=== PATIENT | female | born 1990 | race Caucasian/White ===

== ENCOUNTER 2016-10-16 02:27 | Inpatient (IN) | payer OTHER ==
[2016-10-16 03:17] LABS: AMNISURE (ROM) POSITIVE (NEGATIVE)
[2016-10-16 03:18] LABS: AMORPHOUS SEDIMENT,URINE TRACE /HPF; APPEARANCE,URINE CLOUDY; BILIRUBIN,URINE NEGATIVE (NEGATIVE); GLUCOSE, URINE NEGATIVE (NEGATIVE); KETONES,URINE NEGATIVE (NEGATIVE); LEUKOCYTE ESTERASE,URINE MODERATE (NEGATIVE); NITRITE,URINE NEGATIVE (NEGATIVE); PROTEIN,URINE 100 mg/dL (NEGATIVE); URINE SPECIFIC GRAVITY 1.009; UROBILINOGEN,URINE NEGATIVE mg/dL (<2.0)
[2016-10-16] MEDS ORDERED: MAGNESIUM SULFATE 4 GM/100 ML RTUPB IV ONE (03:22)
[2016-10-16] MEDS ORDERED: BETAMET ACET/BETAMET NA INJ 6 MG/1 ML ONE (03:22)
[2016-10-16] MEDS ORDERED: RINGERS SOLUTION,LACTATED 1,000 ML IV ONE (03:23)
[2016-10-16] MEDS ORDERED: MAGNESIUM SULFATE 100 ML IV ONE (03:25)
[2016-10-16 03:26] LABS: URINE BARBITURATES SCREEN NEGATIVE; URINE METHADONE SCREEN NEGATIVE; URINE OPIATES LOW NEGATIVE; URINE PHENCYCLIDINE SCREEN NEGATIVE
[2016-10-16] MEDS ORDERED: PENICILLIN G POTASSIUM 5,000,000 UNIT in DEXTROSE 5%-WATER 100 ML IV ONE (03:30)
[2016-10-16] MEDS ORDERED: AZITHROMYCIN INJ 500 MG VIAL IV SCH (04:00)
[2016-10-16] MEDS ORDERED: AZITHROMYCIN INJ 500 MG VIAL IV PRN (04:10)
[2016-10-16 04:16] LABS: ABSOLUTE EOSINOPHILS # (AUTO) 0.1 10^3/uL (0.0-0.6); ABSOLUTE LYMPHOCYTES (AUTO) 1.9 10^3/uL (0.5-4.7); ABSOLUTE MONOCYTES (AUTO) 0.7 10^3/uL (0.1-1.4); BASOPHILS % (AUTO) 0.1 % (0-2); HEMATOCRIT 34.4 % (36.0-47.0); HEMOGLOBIN 11.3 g/dL (12.0-15.5); HGB HCT DIFFERENCE -0.5; LYMPHOCYTES % (AUTO) 19.7 % (13-45); MEAN CORPUSCULAR HEMOGLOBIN 26.1 pg (27.0-33.4); MEAN CORPUSCULAR HGB CONC 32.8 g/dL (32.0-36.0); MEAN CORPUSCULAR VOLUME 80 fl (80-97); MONOCYTES % (AUTO) 6.9 % (3-13); RED BLOOD COUNT 4.32 10^6/uL (3.72-5.28); RED CELL DISTRIBUTION WIDTH 14.3 % (11.5-14.0); SEGMENTED NEUTROPHILS % (AUTO) 72.3 % (42-78); WHITE BLOOD COUNT 9.7 10^3/uL (4.0-10.5)
[2016-10-16 04:18] LABS: ALANINE AMINOTRANSFERASE 25 U/L (9-52); ALBUMIN 3.3 g/dL (3.5-5.0); ALKALINE PHOSPHATASE 109 U/L (38-126); ANION GAP 10 (5-19); ASPARTATE AMINO TRANSFERASE 21 U/L (14-36); BILIRUBIN,TOTAL 0.3 mg/dL (0.2-1.3); BLOOD UREA NITROGEN 9 mg/dL (7-20); CALCIUM 9.3 mg/dL (8.4-10.2); CARBON DIOXIDE 20 mmol/L (22-30); CHLORIDE 109 mmol/L (98-107); CREATININE RESULT 0.54 mg/dL (0.52-1.25); GLUCOSE 94 mg/dL (75-110); LDH 337 U/L (313-618); POTASSIUM 3.8 mmol/L (3.6-5.0); SODIUM 138.6 mmol/L (137-145); URIC ACID 4.7 mg/dL (2.5-6.2)
[2016-10-16] MEDS: BETAMET ACET/BETAMET NA INJ 6 MG/1 ML IM SCH (04:21)
[2016-10-16] MEDS: RINGERS SOLUTION,LACTATED 1,000 ML IV PRN ×3 (04:22→18:29)
[2016-10-16] MEDS ORDERED: PENICILLIN G-K 5 MILLION UNIT VIAL ONE ×5 (04:26→20:32)
[2016-10-16] MEDS ORDERED: AZITHROMYCIN INJ 500 MG VIAL IV ONE ×2 (04:26→18:22)
[2016-10-16] MEDS: MAGNESIUM SULFATE 500 ML IV PRN ×2 (04:46→16:32)
[2016-10-16] MEDS ORDERED: AZITHROMYCIN 500 MG in DEXTROSE 5%-WATER 250 ML IV SCH (05:00)
[2016-10-16] MEDS ORDERED: ONDANSETRON HCL INJ/PF 4 MG/2 ML SDV ONE (07:04)
[2016-10-16] MEDS ORDERED: ONDANSETRON HCL INJ/PF 4 MG/2 ML SDV IV PRN (07:04)
[2016-10-16] MEDS ORDERED: PENICILLIN G POTASSIUM 2,500,000 UNIT in DEXTROSE 5%-WATER 50 ML IV SCH (07:30)
--- NOTE | 2016-10-16 08:00 | L&D Flow Sheet ---
LD Flowsheet Datetime Report Generated by CPN: 10/16/2016 08:00 Datetime: 10/16/2016 07:55 Vital Signs NBP Sys/Eda/Mean (mmHg): 128 (QS system process) : 86 (QS system process) : 102 (QS system process) Pulse: 96 (QS system process) Datetime: 10/16/2016 07:40 Vital Signs NBP Sys/Eda/Mean (mmHg): 129 (QS system process) : 90 (QS system process) : 104 (QS system process) Pulse: 105 (QS system process) Datetime: 10/16/2016 07:25 Vital Signs NBP Sys/Eda/Mean (mmHg): 126 (QS system process) : 91 (QS system process) : 104 (QS system process) Pulse: 105 (QS system process) Datetime: 10/16/2016 07:11 Vital Signs NBP Sys/Eda/Mean (mmHg): 130 (QS system process) : 92 (QS system process) : 106 (QS system process) Pulse: 104 (QS system process) Datetime: 10/16/2016 07:04 Antiemetics/Antacids: Zofran IV (mg) @ 4 (Filemon Gema, RN) Datetime: 10/16/2016 07:00 Frequency (min): None (Filemon Gema, RN) Assessment A Monitor Mode: External US (Filemon Gema, RN) FHR Baseline Rate : 150 (Filemon Gema, RN) Variability: Moderate 6-25 bpm (Filemon Gema, RN) Accelerations: 15X15 (Filemon Gema, RN) Datetime: 10/16/2016 06:55 Vital Signs NBP Sys/Eda/Mean (mmHg): 130 (QS system process) : 92 (QS system process) : 105 (QS system process) Pulse: 100 (QS system process) Datetime: 10/16/2016 06:45 Uterine Activity Monitor Mode: External; Palpation (Filemon Gema, RN) Frequency (min): None (Filemon Gema, RN) Resting Tone (Palpate): Relaxed (Filemon Gema, RN) Assessment A Monitor Mode: External US (Filemon Gema, RN) FHR Baseline Rate : 140 (Filemon Gema, RN) Variability: Moderate 6-25 bpm (Filemon Gema, RN) Accelerations: 10X10 (Filemon Gema, RN) Datetime: 10/16/2016 06:40 Vital Signs NBP Sys/Eda/Mean (mmHg): 124 (QS system process) : 87 (QS system process) : 101 (QS system process) Pulse: 88 (QS system process) Datetime: 10/16/2016 06:30 Frequency (min): None (Filemon Ribeiro, RN) Assessment A Monitor Mode: External US (Filemon Ribeiro, RN) FHR Baseline Rate : 130 (Filemon Ribeiro, RN) Variability: Moderate 6-25 bpm (Filemon Ribeiro, RN) Accelerations: 15X15 (Filemon Ribeiro, RN) Datetime: 10/16/2016 06:25 Vital Signs NBP Sys/Eda/Mean (mmHg): 123 (QS system process) : 85 (QS system process) : 100 (QS system process) Pulse: 79 (QS system process) Datetime: 10/16/2016 06:15 Uterine Activity Monitor Mode: External (Filemon Gema, RN) Frequency (min): None (Filemon Gema, RN) Assessment A Monitor Mode: External US (Filemon Ribeiro, RN) FHR Baseline Rate : 130 (Filemon Vásquezford, RN) Variability: Moderate 6-25 bpm (Filemon Ribeiro, RN) Accelerations: 10X10 (Filemon Vásquezford, RN) Datetime: 10/16/2016 06:13 Patient Position/Activity: Left Lateral; Semi-Fowlers (Filemon Vásquezford, RN) Communication Communication: RN at Bedside (Filemon Ribeiro, RN) Datetime: 10/16/2016 06:10 Vital Signs NBP Sys/Eda/Mean (mmHg): 119 (QS system process) : 86 (QS system process) : 100 (QS system process) Pulse: 89 (QS system process) Antibiotics: Zithromax (Filemonkyrie Ribeiro, RN) Medication Comments: Zithromax 500 mg started (Filemon Gema, RN) Datetime: 10/16/2016 06:08 Communication Communication: Provider at Bedside (Lara Ledgerwood, RN) Datetime: 10/16/2016 06:00 Uterine Activity Monitor Mode: External (Filemon Gema, RN) Frequency (min): None (Filemon Gema, RN) Assessment A Monitor Mode: External US (Filemon Gema, RN) FHR Baseline Rate : 130 (Filemon Gema, RN) Variability: Moderate 6-25 bpm (Filemon Gema, RN) Accelerations: None (Filemon Gema, RN) Maternal Assessment Level of Consciousness: Fully Conscious (Filemon Gema, RN) DTR's/Clonus: DTRs 1+; No Clonus (Filemon Gema, RN) Headache: Denies (Filemon Gema, RN) Nausea/Vomiting: Denies (Filemon Gema, RN) RUQ Epigastric Pain: Denies (Filemon Gema, RN) Datetime: 10/16/2016 05:55 Vital Signs NBP Sys/Eda/Mean (mmHg): 125 (QS system process) : 86 (QS system process) : 101 (QS system process) Pulse: 81 (QS system process) Datetime: 10/16/2016 05:45 Frequency (min): None (Filemon Ribeiro, RN) Assessment A Monitor Mode: External US (Filemon Ribeiro, RN) FHR Baseline Rate : 130 (Filemon Ribeiro, RN) Variability: Moderate 6-25 bpm (Filemon Ribeiro, RN) Accelerations: 10X10 (Filemon Ribeiro, RN) Datetime: 10/16/2016 05:40 Vital Signs NBP Sys/Eda/Mean (mmHg): 132 (QS system process) : 92 (QS system process) : 107 (QS system process) Pulse: 85 (QS system process) Datetime: 10/16/2016 05:35 Vital Signs NBP Sys/Eda/Mean (mmHg): 127 (QS system process) : 95 (QS system process) : 107 (QS system process) Pulse: 85 (QS system process) Datetime: 10/16/2016 05:31 Vital Signs NBP Sys/Eda/Mean (mmHg): 143 (QS system process) : 91 (QS system process) : 113 (QS system process) Pulse: 86 (QS system process) Datetime: 10/16/2016 05:30 Uterine Activity Monitor Mode: External; Palpation (Filemon Gema, RN) Monitor Interventions for UA: [place] Adjusted (Filemon Gema, RN) Frequency (min): Unable to determine (Filemon Gema, RN) Resting Tone (Palpate): Relaxed (Filemon Gema, RN) Contraction Comments: Pt denies feeling any contractions (Filemon Gema, RN) Assessment A Monitor Mode: External US (Filemon Gema, RN) FHR Baseline Rate : 135 (Filemon Gema, RN) Variability: Moderate 6-25 bpm (Filemon Gema, RN) Accelerations: 15X15 (Filemon Gema, RN) Datetime: 10/16/2016 05:25 Vital Signs NBP Sys/Eda/Mean (mmHg): 138 (QS system process) : 89 (QS system process) : 109 (QS system process) Pulse: 90 (QS system process) Datetime: 10/16/2016 05:20 Vital Signs NBP Sys/Eda/Mean (mmHg): 135 (QS system process) : 89 (QS system process) : 107 (QS system process) Pulse: 93 (QS system process) Datetime: 10/16/2016 05:15 Vital Signs NBP Sys/Eda/Mean (mmHg): 128 (QS system process) : 89 (QS system process) : 105 (QS system process) Pulse: 93 (QS system process) Uterine Activity Monitor Mode: External (Crystal Kay, RN) Monitor Interventions for UA: [place] Adjusted (Crystal Kay, RN) Frequency (min): x1 (Crystal Washington, RN) Duration (sec): 100 (Crystal [place], RN) Resting Tone (Palpate): Relaxed (Crystal Kay, RN) Assessment A Monitor Mode: External US (Crystal [place], RN) FHR Baseline Rate : 130 (Crystal Kay, RN) Variability: Moderate 6-25 bpm (Crystal Kay, RN) Accelerations: 15X15 (Crystal Kay, RN) Patient Position/Activity: Right Tilt; Semi-Fowlers (Crystal Washington, RN) Datetime: 10/16/2016 05:10 Vital Signs NBP Sys/Eda/Mean (mmHg): 137 (QS system process) : 92 (QS system process) : 109 (QS system process) Pulse: 92 (QS system process) Datetime: 10/16/2016 05:05 Vital Signs NBP Sys/Eda/Mean (mmHg): 132 (QS system process) : 87 (QS system process) : 105 (QS system process) Pulse: 90 (QS system process) Datetime: 10/16/2016 05:00 Vital Signs NBP Sys/Eda/Mean (mmHg): 128 (QS system process) : 87 (QS system process) : 102 (QS system process) Pulse: 90 (QS system process) Monitor Interventions for UA: [place] Adjusted (Crystal Kay, RN) Assessment A Monitor Mode: External US (Crystal Kay, RN) FHR Baseline Rate : 135 (Crystal Washington, RN) Variability: Moderate 6-25 bpm (Crystal Kay, RN) Pain Pain Scale: 0 (Filemon Gema, RN) Pain Presence: None/Denies (Filemon Gema, RN) Pain Type: N/A (Filemon Gema, RN) Maternal Assessment Level of Consciousness: Fully Conscious (Filemon Gema, RN) DTR's/Clonus: DTRs 1+; No Clonus (Filemon Gema, RN) Headache: Denies (Filemon Gema, RN) Breath Sounds, Left: Clear and Equal (Filemon Gema, RN) Breath Sounds, Right: Clear and Equal (Filemon Gema, RN) Nausea/Vomiting: Denies (Filemon Gema, RN) RUQ Epigastric Pain: Denies (Filemon Gema, RN) Datetime: 10/16/2016 04:55 Vital Signs NBP Sys/Eda/Mean (mmHg): 131 (QS system process) : 89 (QS system process) : 104 (QS system process) Pulse: 93 (QS system process) Datetime: 10/16/2016 04:50 Vital Signs NBP Sys/Eda/Mean (mmHg): 132 (QS system process) : 89 (QS system process) : 106 (QS system process) Pulse: 89 (QS system process) Datetime: 10/16/2016 04:47 Antibiotics: Penicillin IV (Units) @ 5 Million (Filemon Gema, RN) Datetime: 10/16/2016 04:45 Vital Signs NBP Sys/Eda/Mean (mmHg): 131 (QS system process) : 89 (QS system process) : 105 (QS system process) Pulse: 93 (QS system process) Monitor Interventions for UA: [place] Adjusted (Crystal Kay, RN) Assessment A Monitor Mode: External US (Crystal Kay, RN) FHR Baseline Rate : 135 (Crystal Kay, RN) Variability: Moderate 6-25 bpm (Crystal Kay, RN) Accelerations: 15X15 (Crystal Kay, RN) Patient Position/Activity: Right Tilt; Semi-Fowlers (Crystal Washington, RN) Datetime: 10/16/2016 04:41 I/O Interventions: [place] Cath Inserted (Mima Lattibeaudeir, RN) Datetime: 10/16/2016 04:35 Vital Signs NBP Sys/Eda/Mean (mmHg): 135 (QS system process) : 91 (QS system process) : 109 (QS system process) Pulse: 101 (QS system process) Datetime: 10/16/2016 04:30 Vital Signs NBP Sys/Eda/Mean (mmHg): 130 (QS system process) : 87 (QS system process) : 103 (QS system process) Pulse: 106 (QS system process) Monitor Interventions for UA: [place] Adjusted (Crystal Washington, RN) Frequency (min): x1 (Crystal Kay, RN) Assessment A Monitor Mode: External US (Crystal Washington, RN) FHR Baseline Rate : 135 (Crystal Washington, RN) Variability: Moderate 6-25 bpm (Crystal Kay, RN) Accelerations: 15X15 (Crystal Washington, RN) Medications Magnesium/Antihypertensives: Magnesium Sulfate IV (Gm/hr) @ 2 (Mima Lattibeaudeir, RN) Patient Position/Activity: Right Tilt; Semi-Fowlers (Crystal Washington, RN) Datetime: 10/16/2016 04:25 Vital Signs NBP Sys/Eda/Mean (mmHg): 135 (QS system process) : 93 (QS system process) : 111 (QS system process) Pulse: 101 (QS system process) Datetime: 10/16/2016 04:20 Vital Signs NBP Sys/Eda/Mean (mmHg): 131 (QS system process) : 96 (QS system process) : 109 (QS system process) Pulse: 103 (QS system process) Datetime: 10/16/2016 04:18 Steroids: Celestone 12mg IM - Dose 1 (Filemon Ribeiro, ZEENAT) Medication Comments: L. Hip Placement (Filemon Ribeiro, RN) Datetime: 10/16/2016 04:16 Vital Signs NBP Sys/Eda/Mean (mmHg): 137 (QS system process) : 94 (QS system process) : 112 (QS system process) Pulse: 92 (QS system process) Datetime: 10/16/2016 04:15 Monitor Interventions for UA: [place] Adjusted (Crystal Washington, RN) Assessment A Monitor Mode: External US (Crystal Washington, RN) Monitor Interventions for FHR: Ultrasound Adjusted (Crystal Kay, RN) FHR Baseline Rate : 135 (Crystal Kay, RN) Variability: Moderate 6-25 bpm (Crystal Kay, RN) Patient Position/Activity: Right Tilt; Semi-Fowlers (Crystal Kay, RN) Datetime: 10/16/2016 04:10 Medications Magnesium/Antihypertensives: Magnesium Sulfate IV Loading (Gm) @ 4 (Filemon Gema, RN) Patient Care IV/Blood Work: IV Started; IV Bolus Started (Filemon Gema, RN) Datetime: 10/16/2016 04:00 Uterine Activity Monitor Mode: External (Crystal Kay, RN) Frequency (min): x1 (Crystal Washington, RN) Quality: Mild/Moderate (Crystal Washington, RN) Duration (sec): 100 (Crystal Kay, RN) Duration Criteria: Less than Two 120 Second Contractions (Crystal Washington, RN) Resting Tone (Palpate): Relaxed (Crystal Washington, RN) Assessment A Monitor Mode: External US (Crystal Washington, RN) FHR Baseline Rate : 135 (Crystal Washington, RN) Variability: Moderate 6-25 bpm (Crystal Washington, RN) Accelerations: 15X15 (Crystal Washington, RN) Patient Position/Activity: Right Tilt; Semi-Fowlers (Crystal Kay, RN) Datetime: 10/16/2016 03:55 Patient Care Comments: Offset Label Rewinder at bedside to provide US (Filemon Gema, RN) Communication Communication: RN at Bedside (Filemonkyrie Ribeiro, RN) Datetime: 10/16/2016 03:45 Uterine Activity Monitor Mode: External (Crystal Kay, RN) Frequency (min): x2 (Crystal Kay, RN) Quality: Mild/Moderate (Crystal Washington, RN) Duration Criteria: Less than Two 120 Second Contractions (Crystal Kay, RN) Resting Tone (Palpate): Relaxed (Crystal Washington, RN) Assessment A Monitor Mode: External US (Crystal Kay, RN) FHR Baseline Rate : 130 (Crystal Kay, RN) Variability: Moderate 6-25 bpm (Crystal Washington, RN) Accelerations: 15X15 (Crystal Washington, RN) Patient Position/Activity: Right Tilt; Semi-Fowlers (Crystal Kay, RN) Datetime: 10/16/2016 03:30 Uterine Activity Monitor Mode: External (Crystal Kay, RN) Frequency (min): 11 (Crystal Kay, RN) Quality: Mild/Moderate (Crystal Washington, RN) Duration Criteria: Less than Two 120 Second Contractions (Crystal Washington, RN) Resting Tone (Palpate): Relaxed (Crystal Washington, RN) Assessment A Monitor Mode: External US (Crystal Kay, RN) FHR Baseline Rate : 130 (Crystal Washington, RN) Variability: Moderate 6-25 bpm (Crystal Kay, RN) Accelerations: 15X15 (Crystal Kay, RN) Patient Position/Activity: Right Tilt; Semi-Fowlers (Crystal Washington, RN) Datetime: 10/16/2016 03:24 Communication Communication: Provider at Bedside (Filemonkyrie Ribeiro, RN) Notification Reason: Membrane Status (Filemon Vásquezford, RN) Communication Comments: Provider at bedside to discuss patients status (Filemon Ribeiro, RN) Datetime: 10/16/2016 03:21 Vital Signs NBP Sys/Eda/Mean (mmHg): 158 (QS system process) : 102 (QS system process) : 121 (QS system process) Pulse: 86 (QS system process) Datetime: 10/16/2016 03:15 Frequency (min): 6 (Crystal Washington, RN) Resting Tone (Palpate): Relaxed (Crystal Washington, RN) Assessment A Monitor Mode: External US (Crystal Washington, RN) FHR Baseline Rate : 135 (Crystal Washington, RN) Variability: Moderate 6-25 bpm (Crystal Kay, RN) Patient Position/Activity: Right Tilt; Semi-Fowlers (Mary Kay, RN) Patient Position/Activity: Right Tilt; Semi-Fowlers (Filemon Ribeiro, RN) I/O Interventions: Clear Liquids Given (Filemon Ribeiro, RN) Datetime: 10/16/2016 03:00 Vital Signs NBP Sys/Eda/Mean (mmHg): 138 (QS system process) : 102 (QS system process) : 116 (QS system process) Pulse: 91 (QS system process) Pain Pain Scale: 2 (Filemon Ribeiro, ZEENAT) Pain Presence: Intermittent (Filemon Ribeiro, ZEENAT) Pain Type: Cramping; Contraction (Filemon Ribeiro, ZEENAT) Pain Location: Abdomen; Back (Filemon Ribeiro, ZEENAT) Pain Goal: 0 (Filemon Ribeiro, ZEENAT) Pain Coping: Talking Through Contractions (Filemon Ribeiro, RN) Vaginal Exam Vaginal Bleeding: Scant (Annotations: Noticed some pink after wiping after she suspected ROM ) (Filemon Ribeiro RN) Maternal Assessment Level of Consciousness: Fully Conscious (Filemon Ribeiro RN) Headache: Denies (Filemon Ribeiro RN) Nausea/Vomiting: Denies (Filemon Ribeiro RN)
[2016-10-16] MEDS: PENICILLIN G-K 5 MILLION UNIT VIAL IV SCH ×3 (08:14→20:58)
[2016-10-16] MEDS ORDERED: ACETAMINOPHEN 325 MG TABLET ONE ×2 (09:23→20:32)
--- NOTE | 2016-10-16 11:00 | L&D Progress Notes ---
PROGRESS NOTES Datetime Report Generated by CPN: 10/16/2016 10:59 PROGRESS NOTE Impression: Reassuring Heart Rate Plan: Continue Present Management Vital Signs : Reviewed; Within Normal Limits Comment: Dr. Brown managing patient, doing well, no uc's, avoid vaginal exams, + FM. Cat 1 strip MEMBRANES Pooling: Positive Membranes: Ruptured Amniotic Fluid Color: Clear FETUS A FHR - Baseline: 130 Variability: Moderate 6-25bpm Accelerations: 15X15 Decelerations: None : 32.2 Estimated Weight (gm): 2200 SIGNATURE SIGNATURE: [id number] Assignment: Sheldon Brown DO Signature: with User ID: [email or web address] Signature: with User ID: [email or web address] : with User ID: [email or web address] : with User ID: [email or web address]
--- NOTE | 2016-10-16 14:00 | L&D Flow Sheet ---
LD Flowsheet Datetime Report Generated by CPN: 10/16/2016 14:00 Datetime: 10/16/2016 13:55 NBP Sys/Eda/Mean (mmHg): 127 (QS system process) : 84 (QS system process) : 102 (QS system process) Pulse: 85 (QS system process) Datetime: 10/16/2016 13:40 NBP Sys/Eda/Mean (mmHg): 139 (QS system process) : 88 (QS system process) : 107 (QS system process) Pulse: 86 (QS system process) Datetime: 10/16/2016 13:26 NBP Sys/Eda/Mean (mmHg): 118 (QS system process) : 74 (QS system process) : 92 (QS system process) Pulse: 78 (QS system process) Datetime: 10/16/2016 13:10 NBP Sys/Eda/Mean (mmHg): 114 (QS system process) : 65 (QS system process) : 85 (QS system process) Pulse: 75 (QS system process) Datetime: 10/16/2016 12:55 NBP Sys/Eda/Mean (mmHg): 126 (QS system process) : 77 (QS system process) : 96 (QS system process) Pulse: 82 (QS system process) Datetime: 10/16/2016 12:45 Antibiotics: Penicillin IV (Units) @ (Annotations: 2.5 mill) (Zamzam Bellavance, RNC) Datetime: 10/16/2016 12:40 NBP Sys/Eda/Mean (mmHg): 134 (QS system process) : 84 (QS system process) : 104 (QS system process) Pulse: 93 (QS system process) Datetime: 10/16/2016 12:30 Monitor Mode: External (Zamzam Bellavance, RNC) Frequency (min): occassional (Zamzam Bellavance, RNC) Quality: Mild (Zamzam Bellavance, RNC) Duration (sec): 40 (Zamzam Bellavance, RNC) Duration Criteria: Less than Two 120 Second Contractions (Zamzam Bellavance, RNC) Pattern: Normal: <= 5 Contractions in 10 Minutes (Zamzam Bellavance, RNC) Resting Tone (Palpate): Relaxed (Zamzam Bellavance, RNC) Monitor Mode: External US (Zamzam Bellavance, RNC) Monitor Interventions for FHR: Ultrasound Adjusted (Zamzam Bellavance, RNC) FHR Baseline Rate : 120 (Zamzam Bellavance, RNC) FHR Baseline Changes: No Baseline Change (Zamzam Bellavance, RNC) Variability: Moderate 6-25 bpm (Zamzam Bellavance, RNC) Accelerations: 15X15 (Zamzam Bellavance, RNC) Decelerations: None (Zamzam Bellavance, RNC) Magnesium/Antihypertensives: Magnesium Sulfate IV (Gm/hr) @ (Zamzam Bellavance, RNC) IV/Blood Work: IV Infusing per Order (Zamzam Bellavance, RNC) Datetime: 10/16/2016 12:25 NBP Sys/Eda/Mean (mmHg): 129 (QS system process) : 78 (QS system process) : 98 (QS system process) Pulse: 87 (QS system process) Datetime: 10/16/2016 12:10 NBP Sys/Eda/Mean (mmHg): 119 (QS system process) : 71 (QS system process) : 88 (QS system process) Pulse: 88 (QS system process) Datetime: 10/16/2016 12:00 Respirations: 16 (Zamzam Bellavance, RNC) Monitor Mode: External (Zamzam Bellavance, RNC) Monitor Interventions for UA: [place] Adjusted (Zamzam Bellavance, RNC) Frequency (min): occassional (Zamzam Bellavance, RNC) Quality: Mild (Zamzam Bellavance, RNC) Duration (sec): 40 (Zamzam Bellavance, RNC) Duration Criteria: Less than Two 120 Second Contractions (Zamzam Bellavance, RNC) Pattern: Normal: <= 5 Contractions in 10 Minutes (Zamzam Bellavance, RNC) Resting Tone (Palpate): Relaxed (Zamzam Bellavance, RNC) Monitor Mode: External US (Zamzam Bellavance, RNC) Monitor Interventions for FHR: Ultrasound Adjusted (Zamzam Bellavance, RNC) FHR Baseline Rate : 120 (Zamzam Bellavance, RNC) FHR Baseline Changes: No Baseline Change (Zamzam Bellavance, RNC) Variability: Moderate 6-25 bpm (Zamzma Bellavance, RNC) Accelerations: 15X15 (Zamzam Bellavance, RNC) Decelerations: None (Zamzam Bellavance, RNC) Magnesium/Antihypertensives: Magnesium Sulfate IV (Gm/hr) @ (Annotations: ) (Zamzam Bellavance, RNC) IV/Blood Work: IV Infusing per Order (Zamzam Bellavance, RNC) Datetime: 10/16/2016 11:55 NBP Sys/Eda/Mean (mmHg): 128 (QS system process) : 74 (QS system process) : 94 (QS system process) Pulse: 90 (QS system process) Datetime: 10/16/2016 11:30 Monitor Mode: External (Zamzam Bellavance, RNC) Frequency (min): 9-12 (Zamzam Bellavance, RNC) Quality: Mild (Zamzam Bellavance, RNC) Duration (sec): 50 (Zamzam Bellavance, RNC) Duration Criteria: Less than Two 120 Second Contractions (Zamzam Bellavance, RNC) Pattern: Normal: <= 5 Contractions in 10 Minutes (Zamzam Bellavance, RNC) Resting Tone (Palpate): Relaxed (Zamzam Bellavance, RNC) Monitor Mode: External US (Zamzam Bellavance, RNC) Monitor Interventions for FHR: Ultrasound Adjusted (Zamzam Bellavance, RNC) FHR Baseline Rate : 120 (Zamzam Bellavance, RNC) FHR Baseline Changes: No Baseline Change (Zamzam Bellavance, RNC) Variability: Moderate 6-25 bpm (Zamzam Bellavance, RNC) Accelerations: 15X15 (Zamzam Bellavance, RNC) Decelerations: None (Zamzam Bellavance, RNC) Pain Scale: 1 (Zamzam Bellavance, RNC) Pain Presence: Constant (Zamzma Bellavance, RNC) Pain Type: Ache (Zamzam Bellavance, RNC) Pain Location: Head (Zamzam Bellavance, RNC) Pain Goal: 0 (Zamzam Bellavance, RNC) Pain Coping: Sleeping (Zamzam Bellavance, RNC) Datetime: 10/16/2016 11:25 NBP Sys/Eda/Mean (mmHg): 126 (QS system process) : 79 (QS system process) : 96 (QS system process) Pulse: 93 (QS system process) Datetime: 10/16/2016 11:10 NBP Sys/Eda/Mean (mmHg): 131 (QS system process) : 81 (QS system process) : 100 (QS system process) Pulse: 94 (QS system process) Datetime: 10/16/2016 11:00 Respirations: 16 (Zamzam Bellavance, RNC) Monitor Mode: External (Zamzam Bellavance, RNC) Frequency (min): 9-12 (Zamzam Bellavance, RNC) Quality: Mild (Zamzam Bellavance, RNC) Duration (sec): 50 (Zamzam Bellavance, RNC) Duration Criteria: Less than Two 120 Second Contractions (Zamzam Bellavance, RNC) Pattern: Normal: <= 5 Contractions in 10 Minutes (Zamzam Bellavance, RNC) Resting Tone (Palpate): Relaxed (Zamzam Bellavance, RNC) Monitor Mode: External US (Zamzam Bellavance, RNC) Monitor Interventions for FHR: Ultrasound Adjusted (Zamzam Bellavance, RNC) FHR Baseline Rate : 120 (Zamzam Bellavance, RNC) FHR Baseline Changes: No Baseline Change (Zamzam Bellavance, RNC) Variability: Moderate 6-25 bpm (Zamzam Bellavance, RNC) Accelerations: 15X15 (Zamzam Bellavance, RNC) Decelerations: None (Zamzam Bellavance, RNC) Pain Scale: 4 (Zamzam Bellavance, RNC) Pain Presence: Constant (Zamzam Bellavance, RNC) Pain Type: Ache (Zamzam Bellavance, RNC) Pain Location: Head (Zamzam Bellavance, RNC) Pain Goal: 0 (Zamzam Bellavance, RNC) Pain Relief Measures: Pain Medication Given (Annotations: tylenol 925 given po) (Zamzam Bellavance, RNC) Pain Coping: Sleeping (Zamzam Bellavance, RNC) Datetime: 10/16/2016 10:55 NBP Sys/Eda/Mean (mmHg): 126 (QS system process) : 86 (QS system process) : 102 (QS system process) Pulse: 86 (QS system process) Datetime: 10/16/2016 10:40 NBP Sys/Eda/Mean (mmHg): 118 (QS system process) : 80 (QS system process) : 95 (QS system process) Pulse: 103 (QS system process) Datetime: 10/16/2016 10:30 Respirations: 16 (Zamzam Bellavance, RNC) Monitor Mode: External (Zamzam Bellavance, RNC) Monitor Interventions for UA: [place] Adjusted (Zamzam Bellavance, RNC) Frequency (min): occassional (Zamzam Bellavance, RNC) Resting Tone (Palpate): Relaxed (Zamzam Bellavance, RNC) Monitor Mode: External US (Zamzam Bellavance, RNC) Monitor Interventions for FHR: Ultrasound Adjusted (Zamzam Bellavance, RNC) FHR Baseline Rate : 120 (Zamzam Bellavance, RNC) Variability: Moderate 6-25 bpm (Zamzam Bellavance, RNC) Accelerations: 15X15 (Zamzam Bellavance, RNC) Decelerations: None (Zamzam Bellavance, RNC) Pain Scale: 0 (Zamzam Bellavance, RNC) Level of Consciousness: Fully Conscious (Zamzam Bellavance, RNC) DTR's/Clonus: DTRs 2+ (Zamzam Bellavance, RNC) Headache: Denies (Zamzam Bellavance, RNC) Breath Sounds, Left: Clear and Equal (Zamzam Bellavance, RNC) Breath Sounds, Right: Clear and Equal (Zamzam Bellavance, RNC) Nausea/Vomiting: Denies (Zamzam Bellavance, RNC) RUQ Epigastric Pain: Denies (Zamzam Bellavance, RNC) Magnesium/Antihypertensives: Magnesium Sulfate IV (Gm/hr) @ (Zamzam Bellavance, RNC) IV/Blood Work: IV Infusing per Order (Zamzam Bellavance, RNC) Datetime: 10/16/2016 10:25 NBP Sys/Eda/Mean (mmHg): 126 (QS system process) : 82 (QS system process) : 98 (QS system process) Pulse: 98 (QS system process) Datetime: 10/16/2016 10:10 NBP Sys/Eda/Mean (mmHg): 119 (QS system process) : 70 (QS system process) : 89 (QS system process) Pulse: 78 (QS system process) Datetime: 10/16/2016 10:00 Monitor Mode: External (Zamzam Bellavance, RNC) Monitor Interventions for UA: [place] Adjusted (Zamzam Bellavance, RNC) Frequency (min): occassional (Zamzam Bellavance, RNC) Resting Tone (Palpate): Relaxed (Zamzam Bellavance, RNC) Monitor Mode: External US (Zamzam Bellavance, RNC) Monitor Interventions for FHR: Ultrasound Adjusted (Zamzam Bellavance, RNC) FHR Baseline Rate : 120 (Zamzam Bellavance, RNC) Variability: Moderate 6-25 bpm (Zamzam Bellavance, RNC) Accelerations: 15X15 (Zamzam Bellavance, RNC) Decelerations: None (Zamzam Bellavance, RNC) Pain Scale: 0 (Zamzam Bellavance, RNC) Level of Consciousness: Fully Conscious (Zamzam Bellavance, RNC) DTR's/Clonus: DTRs 2+ (Zamzam Bellavance, RNC) Headache: Denies (Zamzam Bellavance, RNC) Breath Sounds, Left: Clear and Equal (Zamzam Bellavance, RNC) Breath Sounds, Right: Clear and Equal (Zamzam Bellavance, RNC) Nausea/Vomiting: Denies (Zamzam Bellavance, RNC) RUQ Epigastric Pain: Denies (Zamzam Bellavance, RNC) Magnesium/Antihypertensives: Magnesium Sulfate IV (Gm/hr) @ (Zamzam Bellavance, RNC) IV/Blood Work: IV Infusing per Order (Zamzam Bellavance, RNC) Datetime: 10/16/2016 09:55 NBP Sys/Eda/Mean (mmHg): 127 (QS system process) : 80 (QS system process) : 97 (QS system process) Pulse: 90 (QS system process) Datetime: 10/16/2016 09:40 NBP Sys/Eda/Mean (mmHg): 129 (QS system process) : 87 (QS system process) : 103 (QS system process) Pulse: 96 (QS system process) Datetime: 10/16/2016 09:30 Monitor Mode: External (Zamzam Bellavance, RNC) Monitor Interventions for UA: [place] Adjusted (Zamzam Bellavance, RNC) Frequency (min): occassional (Zamzam Bellavance, RNC) Resting Tone (Palpate): Relaxed (Zamzam Bellavance, RNC) Monitor Mode: External US (Zamzam Bellavance, RNC) Monitor Interventions for FHR: Ultrasound Adjusted (Zamzam Bellavance, RNC) FHR Baseline Rate : 120 (Zamzam Bellavance, RNC) Variability: Moderate 6-25 bpm (Zamzam Bellavance, RNC) Accelerations: 15X15 (Zamzam Bellavance, RNC) Decelerations: None (Zamzam Bellavance, RNC) Pain Scale: 0 (Zamzam Bellavance, RNC) Level of Consciousness: Fully Conscious (Zamzam Bellavance, RNC) DTR's/Clonus: DTRs 2+ (Zamzam Bellavance, RNC) Headache: Denies (Zamzam Bellavance, RNC) Breath Sounds, Left: Clear and Equal (Zamzam Bellavance, RNC) Breath Sounds, Right: Clear and Equal (Zamzam Bellavance, RNC) Nausea/Vomiting: Denies (Zamzam Bellavance, RNC) RUQ Epigastric Pain: Denies (Zamzam Bellavance, RNC) Magnesium/Antihypertensives: Magnesium Sulfate IV (Gm/hr) @ (Zamzam Bellavance, RNC) IV/Blood Work: IV Infusing per Order (Zamzam Bellavance, RNC) Datetime: 10/16/2016 09:25 NBP Sys/Eda/Mean (mmHg): 130 (QS system process) : 82 (QS system process) : 99 (QS system process) Pulse: 94 (QS system process) Datetime: 10/16/2016 09:10 NBP Sys/Eda/Mean (mmHg): 129 (QS system process) : 82 (QS system process) : 99 (QS system process) Pulse: 97 (QS system process) Datetime: 10/16/2016 09:00 Respirations: 16 (Zamzam Bellavance, RNC) Monitor Mode: External (Zamzam Bellavance, RNC) Monitor Interventions for UA: [place] Adjusted (Zamzam Bellavance, RNC) Frequency (min): occassional (Zamzam Bellavance, RNC) Resting Tone (Palpate): Relaxed (Zamzam Bellavance, RNC) Monitor Mode: External US (Zamzam Bellavance, RNC) Monitor Interventions for FHR: Ultrasound Adjusted (Zamzam Bellavance, RNC) FHR Baseline Rate : 120 (Zamzam Bellavance, RNC) Variability: Moderate 6-25 bpm (Zamzam Bellavance, RNC) Accelerations: 15X15 (Zamzam Bellavance, RNC) Decelerations: None (Zamzam Bellavance, RNC) Pain Scale: 0 (Zamzam Bellavance, RNC) Level of Consciousness: Fully Conscious (Zamzam Bellavance, RNC) DTR's/Clonus: DTRs 2+ (Zamzam Bellavance, RNC) Headache: Denies (Zamzam Bellavance, RNC) Breath Sounds, Left: Clear and Equal (Zamzam Bellavance, RNC) Breath Sounds, Right: Clear and Equal (Zamzam Bellavance, RNC) Nausea/Vomiting: Denies (Zamzam Bellavance, RNC) RUQ Epigastric Pain: Denies (Zamzam Bellavance, RNC) Magnesium/Antihypertensives: Magnesium Sulfate IV (Gm/hr) @ (Zamzam Bellavance, RNC) Antibiotics: Penicillin IV (Units) @ (Annotations: 2.5 mill) (Zamzam Bellavance, RNC) IV/Blood Work: IV Infusing per Order (Zamzam Bellavance, RNC) Datetime: 10/16/2016 08:55 NBP Sys/Eda/Mean (mmHg): 129 (QS system process) : 88 (QS system process) : 102 (QS system process) Pulse: 99 (QS system process) Datetime: 10/16/2016 08:40 NBP Sys/Eda/Mean (mmHg): 125 (QS system process) : 86 (QS system process) : 101 (QS system process) Pulse: 100 (QS system process) Datetime: 10/16/2016 08:30 Respirations: 16 (Zamzam Bellavance, RNC) Monitor Mode: External (Zamzam Bellavance, RNC) Monitor Interventions for UA: [place] Adjusted (Zamzam Bellavance, RNC) Frequency (min): occassional (Zamzam Bellavance, RNC) Resting Tone (Palpate): Relaxed (Zamzam Bellavance, RNC) Monitor Mode: External US (Zamzam Bellavance, RNC) Monitor Interventions for FHR: Ultrasound Adjusted (Zamzam Bellavance, RNC) FHR Baseline Rate : 120 (Zamzam Bellavance, RNC) Variability: Moderate 6-25 bpm (Zamzam Bellavance, RNC) Accelerations: 15X15 (Zamzam Bellavance, RNC) Decelerations: None (Zamzam Bellavance, RNC) Pain Scale: 0 (Zamzam Bellavance, RNC) Level of Consciousness: Fully Conscious (Zamzam Bellavance, RNC) DTR's/Clonus: DTRs 2+ (Zamzam Bellavance, RNC) Headache: Denies (Zamzam Bellavance, RNC) Breath Sounds, Left: Clear and Equal (Zamzam Bellavance, RNC) Breath Sounds, Right: Clear and Equal (Zamzam Bellavance, RNC) Nausea/Vomiting: Denies (Zamzam Bellavance, RNC) RUQ Epigastric Pain: Denies (Zamzam Bellavance, RNC) Magnesium/Antihypertensives: Magnesium Sulfate IV (Gm/hr) @ (Zamzam Bellavance, RNC) IV/Blood Work: IV Infusing per Order (Zamzam Bellavance, RNC) Datetime: 10/16/2016 08:25 NBP Sys/Eda/Mean (mmHg): 131 (QS system process) : 90 (QS system process) : 106 (QS system process) Pulse: 100 (QS system process) Datetime: 10/16/2016 08:10 NBP Sys/Eda/Mean (mmHg): 132 (QS system process) : 92 (QS system process) : 108 (QS system process) Pulse: 99 (QS system process) Datetime: 10/16/2016 08:00 Monitor Mode: External (Zamzam Bellavance, RNC) Monitor Interventions for UA: [place] Adjusted (Zamzam Bellavance, RNC) Frequency (min): occassional (Zamzam Bellavance, RNC) Resting Tone (Palpate): Relaxed (Zamzam Bellavance, RNC) Monitor Mode: External US (Zamzam Bellavance, RNC) Monitor Interventions for FHR: Ultrasound Adjusted (Zamzam Bellavance, RNC) FHR Baseline Rate : 120 (Zamzam Bellavance, RNC) Variability: Moderate 6-25 bpm (Zamzam Bellavance, RNC) Accelerations: 15X15 (Zamzam Bellavance, RNC) Decelerations: None (Zamzam Bellavance, RNC) Pain Scale: 0 (Zamzam Bellavance, RNC) Level of Consciousness: Fully Conscious (Zamzam Bellavance, RNC) DTR's/Clonus: DTRs 2+ (Zamzam Bellavance, RNC) Headache: Denies (Zamzam Bellavance, RNC) Breath Sounds, Left: Clear and Equal (Zamzam Bellavance, RNC) Breath Sounds, Right: Clear and Equal (Zamzam Bellavance, RNC) Nausea/Vomiting: Denies (Zamzam Bellavance, RNC) RUQ Epigastric Pain: Denies (Zamzam Bellavance, RNC) Magnesium/Antihypertensives: Magnesium Sulfate IV (Gm/hr) @ (Zamzam Ortiz, RNC) IV/Blood Work: IV Infusing per Order (Zamzam Ortiz, RNC)
[2016-10-16] MEDS ORDERED: NALBUPHINE HCL INJ 10 MG/1 ML AMPULE ONE (16:21)
--- NOTE | 2016-10-16 20:01 | L&D Flow Sheet ---
LD Flowsheet Datetime Report Generated by CPN: 10/16/2016 20:00 Datetime: 10/16/2016 19:55 NBP Sys/Eda/Mean (mmHg): 123 (QS system process) : 68 (QS system process) : 90 (QS system process) Pulse: 81 (QS system process) Datetime: 10/16/2016 19:40 NBP Sys/Eda/Mean (mmHg): 132 (QS system process) : 84 (QS system process) : 102 (QS system process) Pulse: 91 (QS system process) Datetime: 10/16/2016 19:30 Communication: Provider at Bedside (Lara Gilbert RN) Communication Comments: Dr Brown at the bedside, answering pt's questions. Order for Ambien 10 mg and Tylenol 650 mg q 4 PRN for headache received. (Lara Gilbert RN) Datetime: 10/16/2016 19:25 NBP Sys/Eda/Mean (mmHg): 133 (QS system process) : 87 (QS system process) : 105 (QS system process) Pulse: 85 (QS system process) Pain Scale: 3 (Lara Gilbert RN) Pain Presence: Constant (Lara Gilbert RN) Pain Type: Sharp (Lara Gilbert RN) Pain Location: Head (Lara Gilbert RN) Level of Consciousness: Fully Conscious (Lara Gilbert RN) DTR's/Clonus: DTRs 2+; No Clonus (Lara Gilbert RN) Breath Sounds, Left: Clear and Equal (Lara Gilbert RN) Breath Sounds, Right: Clear and Equal (Lara Gilbert RN) Nausea/Vomiting: Denies (Lara Gilbert RN) RUQ Epigastric Pain: Denies (Lara Gilbert RN) Magnesium/Antihypertensives: Magnesium Sulfate IV (Gm/hr) @ (Annotations: 2 g/h) (Lara Gilbert RN) Instructional Method: Demo; Verbal; Patient Instructed (Lara Gilbert RN) Plan of Care: Plan of Care Discussed (Lara Gilbert RN) Datetime: 10/16/2016 19:11 NBP Sys/Eda/Mean (mmHg): 132 (QS system process) : 84 (QS system process) : 103 (QS system process) Pulse: 88 (QS system process) Datetime: 10/16/2016 19:00 Respirations: 16 (Zamzam Bellavance, RNC) Monitor Mode: External (Zamzam Bellavance, RNC) Frequency (min): occassional (Azmzam Bellavance, RNC) Quality: Mild (Zamzam Bellavance, RNC) Duration (sec): 40 (Zamzam Bellavance, RNC) Duration Criteria: Less than Two 120 Second Contractions (Zamzam Bellavance, RNC) Pattern: Normal: <= 5 Contractions in 10 Minutes (Zamzam Bellavance, RNC) Resting Tone (Palpate): Relaxed (Zamzam Bellavance, RNC) Monitor Mode: External US (Zamzam Bellavance, RNC) Monitor Interventions for FHR: Ultrasound Adjusted (Zamzam Bellavance, RNC) FHR Baseline Rate : 120 (Zamzam Bellavance, RNC) FHR Baseline Changes: No Baseline Change (Zamzam Bellavance, RNC) Variability: Moderate 6-25 bpm (Zamzam Bellavance, RNC) Accelerations: 15X15 (Zamzam Bellavance, RNC) Decelerations: None (Zamzam Bellavance, RNC) Level of Consciousness: Fully Conscious (Zamzam Bellavance, RNC) DTR's/Clonus: DTRs 2+ (Zamzam Bellavance, RNC) Headache: Denies (Zamzam Bellavance, RNC) Breath Sounds, Left: Clear and Equal (Zamzam Bellavance, RNC) Nausea/Vomiting: Denies (Zamzam Bellavance, RNC) RUQ Epigastric Pain: Denies (Zamzam Bellavance, RNC) Magnesium/Antihypertensives: Magnesium Sulfate IV (Gm/hr) @ (Zamzam Bellavance, RNC) IV/Blood Work: IV Infusing per Order (Zamzam Bellavance, RNC) Datetime: 10/16/2016 18:55 NBP Sys/Eda/Mean (mmHg): 120 (QS system process) : 71 (QS system process) : 91 (QS system process) Pulse: 81 (QS system process) Datetime: 10/16/2016 18:40 NBP Sys/Eda/Mean (mmHg): 130 (QS system process) : 78 (QS system process) : 98 (QS system process) Pulse: 86 (QS system process) Datetime: 10/16/2016 18:30 Respirations: 16 (Zamzam Bellavance, RNC) Monitor Mode: External (Zamzam Bellavance, RNC) Frequency (min): occassional (Zamzam Bellavance, RNC) Quality: Mild (Zamzam Bellavance, RNC) Duration (sec): 40 (Zamzam Bellavance, RNC) Duration Criteria: Less than Two 120 Second Contractions (Zamzam Bellavance, RNC) Pattern: Normal: <= 5 Contractions in 10 Minutes (Zamzam Bellavance, RNC) Resting Tone (Palpate): Relaxed (Zamzam Bellavance, RNC) Monitor Mode: External US (Zamzam Bellavance, RNC) Monitor Interventions for FHR: Ultrasound Adjusted (Zamzam Bellavance, RNC) FHR Baseline Rate : 120 (Zamzam Bellavance, RNC) FHR Baseline Changes: No Baseline Change (Zamzam Bellavance, RNC) Variability: Moderate 6-25 bpm (Zamzam Bellavance, RNC) Accelerations: 15X15 (Zamzam Bellavance, RNC) Decelerations: None (Zamzam Bellavance, RNC) Level of Consciousness: Fully Conscious (Zamzam Bellavance, RNC) DTR's/Clonus: DTRs 2+ (Zamzam Bellavance, RNC) Headache: Denies (Zamzam Bellavance, RNC) Breath Sounds, Left: Clear and Equal (Zamzam Bellavance, RNC) Nausea/Vomiting: Denies (Zamzam Bellavance, RNC) RUQ Epigastric Pain: Denies (Zamzam Bellavance, RNC) Magnesium/Antihypertensives: Magnesium Sulfate IV (Gm/hr) @ (Zamzam Bellavance, RNC) IV/Blood Work: IV Infusing per Order (Zamzam Bellavance, RNC) Datetime: 10/16/2016 18:25 NBP Sys/Eda/Mean (mmHg): 130 (QS system process) : 75 (QS system process) : 98 (QS system process) Pulse: 78 (QS system process) Datetime: 10/16/2016 18:10 NBP Sys/Eda/Mean (mmHg): 125 (QS system process) : 75 (QS system process) : 96 (QS system process) Pulse: 83 (QS system process) Datetime: 10/16/2016 18:00 Temperature (F): 98.2 (Zamzam Bellavance, RNC) Temperature (C): 36.8 (QS system process) Temperature Route: Oral (Zamzam Bellavance, RNC) Monitor Mode: External (Zamzam Bellavance, RNC) Frequency (min): occassional (Zamzam Bellavance, RNC) Quality: Mild (Zamzam Bellavance, RNC) Duration (sec): 40 (Zamzam Bellavance, RNC) Duration Criteria: Less than Two 120 Second Contractions (Zamzam Bellavance, RNC) Pattern: Normal: <= 5 Contractions in 10 Minutes (Zamzam Bellavance, RNC) Resting Tone (Palpate): Relaxed (Zamzam Bellavance, RNC) Monitor Mode: External US (Zamzam Bellavance, RNC) Monitor Interventions for FHR: Ultrasound Adjusted (Zamzam Bellavance, RNC) FHR Baseline Rate : 120 (Zamzam Bellavance, RNC) FHR Baseline Changes: No Baseline Change (Zamzam Bellavance, RNC) Variability: Moderate 6-25 bpm (Azmzam Bellavance, RNC) Accelerations: 15X15 (Zamzam Bellavance, RNC) Decelerations: None (Zamzam Bellavance, RNC) Level of Consciousness: Fully Conscious (Zamzam Bellavance, RNC) DTR's/Clonus: DTRs 2+ (Zamzam Bellavance, RNC) Headache: Denies (Zamzam Bellavance, RNC) Breath Sounds, Left: Clear and Equal (Zamzam Bellavance, RNC) Nausea/Vomiting: Denies (Zamzam Bellavance, RNC) RUQ Epigastric Pain: Denies (Zamzam Bellavance, RNC) Magnesium/Antihypertensives: Magnesium Sulfate IV (Gm/hr) @ (Zamzam Bellavance, RNC) IV/Blood Work: IV Infusing per Order (Zamzam Bellavance, RNC) Datetime: 10/16/2016 17:55 NBP Sys/Eda/Mean (mmHg): 124 (QS system process) : 72 (QS system process) : 93 (QS system process) Pulse: 80 (QS system process) Datetime: 10/16/2016 17:40 NBP Sys/Eda/Mean (mmHg): 121 (QS system process) : 75 (QS system process) : 94 (QS system process) Pulse: 76 (QS system process) Datetime: 10/16/2016 17:30 Monitor Mode: External (Zamzam Bellavance, RNC) Frequency (min): occassional (Zamzam Bellavance, RNC) Quality: Mild (Zamzam Bellavance, RNC) Duration (sec): 40 (Zamzam Bellavance, RNC) Duration Criteria: Less than Two 120 Second Contractions (Zamzam Bellavance, RNC) Pattern: Normal: <= 5 Contractions in 10 Minutes (Zamzam Bellavance, RNC) Resting Tone (Palpate): Relaxed (Zamzam Bellavance, RNC) Monitor Mode: External US (Zamzam Bellavance, RNC) Monitor Interventions for FHR: Ultrasound Adjusted (Zamzam Bellavance, RNC) FHR Baseline Rate : 120 (Zamzam Bellavance, RNC) FHR Baseline Changes: No Baseline Change (Zamzam Bellavance, RNC) Variability: Moderate 6-25 bpm (Zamzam Bellavance, RNC) Accelerations: 15X15 (Zamzam Bellavance, RNC) Decelerations: None (Zamzam Bellavance, RNC) Level of Consciousness: Fully Conscious (Zamzam Bellavance, RNC) DTR's/Clonus: DTRs 2+ (Zamzam Bellavance, RNC) Headache: Denies (Zamzam Bellavance, RNC) Breath Sounds, Left: Clear and Equal (Zamzam Bellavance, RNC) Nausea/Vomiting: Denies (Zamzam Bellavance, RNC) RUQ Epigastric Pain: Denies (Zamzam Bellavance, RNC) Magnesium/Antihypertensives: Magnesium Sulfate IV (Gm/hr) @ (Zamzam Bellavance, RNC) IV/Blood Work: IV Infusing per Order (Zamzam Bellavance, RNC) Datetime: 10/16/2016 17:25 NBP Sys/Eda/Mean (mmHg): 122 (QS system process) : 79 (QS system process) : 95 (QS system process) Pulse: 78 (QS system process) Datetime: 10/16/2016 17:10 NBP Sys/Eda/Mean (mmHg): 127 (QS system process) : 83 (QS system process) : 101 (QS system process) Pulse: 80 (QS system process) Datetime: 10/16/2016 17:00 Respirations: 16 (Zamzam Bellavance, RNC) Monitor Mode: External (Zamzam Bellavance, RNC) Frequency (min): occassional (Zamzam Bellavance, RNC) Quality: Mild (Zamzam Bellavance, RNC) Duration (sec): 40 (Zamzam Bellavance, RNC) Duration Criteria: Less than Two 120 Second Contractions (Zamzam Bellavance, RNC) Pattern: Normal: <= 5 Contractions in 10 Minutes (Zamzam Bellavance, RNC) Resting Tone (Palpate): Relaxed (Zamzam Bellavance, RNC) Monitor Mode: External US (Zamzam Bellavance, RNC) Monitor Interventions for FHR: Ultrasound Adjusted (Zamzam Bellavance, RNC) FHR Baseline Rate : 120 (Zamzam Bellavance, RNC) FHR Baseline Changes: No Baseline Change (Zamzam Bellavance, RNC) Variability: Moderate 6-25 bpm (Zamzam Bellavance, RNC) Accelerations: 15X15 (Zamzam Bellavance, RNC) Decelerations: None (Zamzam Bellavance, RNC) Pain Assessment Comments: sleeping (Zamzam Bellavance, RNC) Level of Consciousness: Fully Conscious (Zamzam Bellavance, RNC) DTR's/Clonus: DTRs 2+ (Zamzam Bellavance, RNC) Headache: Denies (Zamzam Bellavance, RNC) Breath Sounds, Left: Clear and Equal (Zamzam Bellavance, RNC) Nausea/Vomiting: Denies (Zamzam Bellavance, RNC) RUQ Epigastric Pain: Denies (Zamzam Bellavance, RNC) Magnesium/Antihypertensives: Magnesium Sulfate IV (Gm/hr) @ (Zamzam Bellavance, RNC) IV/Blood Work: IV Infusing per Order (Zamzam Bellavance, RNC) Datetime: 10/16/2016 16:55 NBP Sys/Eda/Mean (mmHg): 125 (QS system process) : 81 (QS system process) : 97 (QS system process) Pulse: 77 (QS system process) Datetime: 10/16/2016 16:40 NBP Sys/Eda/Mean (mmHg): 133 (QS system process) : 83 (QS system process) : 102 (QS system process) Pulse: 77 (QS system process) Datetime: 10/16/2016 16:30 Monitor Mode: External (Zamzam Bellavance, RNC) Frequency (min): occassional (Zamzam Bellavance, RNC) Quality: Mild (Zamzam Bellavance, RNC) Duration (sec): 40 (Zamzam Bellavance, RNC) Duration Criteria: Less than Two 120 Second Contractions (Zamzam Bellavance, RNC) Pattern: Normal: <= 5 Contractions in 10 Minutes (Zamzam Bellavance, RNC) Resting Tone (Palpate): Relaxed (Zamzam Bellavance, RNC) Monitor Mode: External US (Zamzam Bellavance, RNC) Monitor Interventions for FHR: Ultrasound Adjusted (Zamzam Bellavance, RNC) FHR Baseline Rate : 120 (Zamzam Bellavance, RNC) FHR Baseline Changes: No Baseline Change (Zamzam Bellavance, RNC) Variability: Moderate 6-25 bpm (Zamzam Bellavance, RNC) Accelerations: 15X15 (Zamzam Bellavance, RNC) Decelerations: None (Zamzam Bellavance, RNC) Pain Assessment Comments: nubain given for headache and patient states relief (Zamzambrandon Tarangoe, RNC) Level of Consciousness: Fully Conscious (Zamzam Bellavance, RNC) DTR's/Clonus: DTRs 2+ (Zamzam Bellavance, RNC) Headache: Denies (Zamzam Bellavance, RNC) Breath Sounds, Left: Clear and Equal (Zamzam Bellavance, RNC) Nausea/Vomiting: Denies (Zamzam Bellavance, RNC) RUQ Epigastric Pain: Denies (Zamzam Bellavance, RNC) Magnesium/Antihypertensives: Magnesium Sulfate IV (Gm/hr) @ (Zamzam Tarangoe, RNC) Analgesics/Sedatives: Nubain (mg) @ (Annotations: 10) (Zamzam Bellavance, RNC) IV/Blood Work: IV Infusing per Order (Zamzam Bellavance, RNC) Datetime: 10/16/2016 16:25 NBP Sys/Eda/Mean (mmHg): 137 (QS system process) : 95 (QS system process) : 111 (QS system process) Pulse: 88 (QS system process) Datetime: 10/16/2016 16:10 NBP Sys/Eda/Mean (mmHg): 142 (QS system process) : 96 (QS system process) : 112 (QS system process) Pulse: 86 (QS system process) Datetime: 10/16/2016 16:00 Temperature (F): 98.8 (Zamzam Bellavance, RNC) Temperature (C): 37.1 (QS system process) Temperature Route: Oral (Zamzam Bellavance, RNC) Monitor Mode: External (Zamzam Bellavance, RNC) Frequency (min): occassional (Zamzam Bellavance, RNC) Quality: Mild (Zamzam Bellavance, RNC) Duration (sec): 40 (Zamzam Bellavance, RNC) Duration Criteria: Less than Two 120 Second Contractions (Zamzam Bellavance, RNC) Pattern: Normal: <= 5 Contractions in 10 Minutes (Zamzam Bellavance, RNC) Resting Tone (Palpate): Relaxed (Zamzam Bellavance, RNC) Monitor Mode: External US (Zamzam Bellavance, RNC) Monitor Interventions for FHR: Ultrasound Adjusted (Zamzam Bellavance, RNC) FHR Baseline Rate : 120 (Zamzam Bellavance, RNC) FHR Baseline Changes: No Baseline Change (Zamzam Bellavance, RNC) Variability: Moderate 6-25 bpm (Zamzam Bellavance, RNC) Accelerations: 15X15 (Zamzam Bellavance, RNC) Decelerations: None (Zamzam Bellavance, RNC) Magnesium/Antihypertensives: Magnesium Sulfate IV (Gm/hr) @ (Zamzam Bellavance, RNC) IV/Blood Work: IV Infusing per Order (Zamzam Bellavance, RNC) Datetime: 10/16/2016 15:55 NBP Sys/Eda/Mean (mmHg): 135 (QS system process) : 92 (QS system process) : 109 (QS system process) Pulse: 91 (QS system process) Datetime: 10/16/2016 15:40 NBP Sys/Eda/Mean (mmHg): 133 (QS system process) : 86 (QS system process) : 105 (QS system process) Pulse: 89 (QS system process) Datetime: 10/16/2016 15:30 Monitor Mode: External (Zamzam Bellavance, RNC) Frequency (min): occassional (Zamzam Bellavance, RNC) Quality: Mild (Zamzam Bellavance, RNC) Duration (sec): 40 (Zamzam Bellavance, RNC) Duration Criteria: Less than Two 120 Second Contractions (Zamzam Bellavance, RNC) Pattern: Normal: <= 5 Contractions in 10 Minutes (Zamzam Bellavance, RNC) Resting Tone (Palpate): Relaxed (Zamzam Bellavance, RNC) Monitor Mode: External US (Zamzam Bellavance, RNC) Monitor Interventions for FHR: Ultrasound Adjusted (Zamzam Bellavance, RNC) FHR Baseline Rate : 120 (Zamzam Bellavance, RNC) FHR Baseline Changes: No Baseline Change (Zamzam Bellavance, RNC) Variability: Moderate 6-25 bpm (Zamzam Bellavance, RNC) Accelerations: 15X15 (Zamzam Bellavance, RNC) Decelerations: None (Zamzam Bellavance, RNC) Magnesium/Antihypertensives: Magnesium Sulfate IV (Gm/hr) @ (Zamzam Bellavance, RNC) IV/Blood Work: IV Infusing per Order (Zamzam Bellavance, RNC) Datetime: 10/16/2016 15:25 NBP Sys/Eda/Mean (mmHg): 130 (QS system process) : 78 (QS system process) : 99 (QS system process) Pulse: 90 (QS system process) Datetime: 10/16/2016 15:00 Monitor Mode: External (Zamzam Bellavance, RNC) Frequency (min): occassional (Zamzam Bellavance, RNC) Quality: Mild (Zamzam Bellavance, RNC) Duration (sec): 40 (Zamzam Bellavance, RNC) Duration Criteria: Less than Two 120 Second Contractions (Zamzam Bellavance, RNC) Pattern: Normal: <= 5 Contractions in 10 Minutes (Zamzam Bellavance, RNC) Resting Tone (Palpate): Relaxed (Zamzam Bellavance, RNC) Monitor Mode: External US (Zamzam Bellavance, RNC) Monitor Interventions for FHR: Ultrasound Adjusted (Zamzam Bellavance, RNC) FHR Baseline Rate : 120 (Zamzam Bellavance, RNC) FHR Baseline Changes: No Baseline Change (Zamzam Bellavance, RNC) Variability: Moderate 6-25 bpm (Zamzam Bellavance, RNC) Accelerations: 15X15 (Zamzam Bellavance, RNC) Decelerations: None (Zamzam Bellavance, RNC) Magnesium/Antihypertensives: Magnesium Sulfate IV (Gm/hr) @ (Zamzam Bellavance, RNC) IV/Blood Work: IV Infusing per Order (Zamzam Bellavance, RNC) Datetime: 10/16/2016 14:40 NBP Sys/Eda/Mean (mmHg): 135 (QS system process) : 82 (QS system process) : 104 (QS system process) Pulse: 85 (QS system process) Datetime: 10/16/2016 14:30 Respirations: 16 (Zamzam Bellavance, RNC) Monitor Mode: External (Zamzam Bellavance, RNC) Frequency (min): occassional (Zamzam Bellavance, RNC) Quality: Mild (Zamzam Bellavance, RNC) Duration (sec): 40 (Zamzam Bellavance, RNC) Duration Criteria: Less than Two 120 Second Contractions (Zamzam Bellavance, RNC) Pattern: Normal: <= 5 Contractions in 10 Minutes (Zamzam Bellavance, RNC) Resting Tone (Palpate): Relaxed (Zamzam Bellavance, RNC) Monitor Mode: External US (Zamzam Bellavance, RNC) Monitor Interventions for FHR: Ultrasound Adjusted (Zamzam Bellavance, RNC) FHR Baseline Rate : 120 (Zamzam Bellavance, RNC) FHR Baseline Changes: No Baseline Change (Zamzam Bellavance, RNC) Variability: Moderate 6-25 bpm (Zamzam Bellavance, RNC) Accelerations: 15X15 (Zamzam Bellavance, RNC) Decelerations: None (Zamzam Bellavance, RNC) Magnesium/Antihypertensives: Magnesium Sulfate IV (Gm/hr) @ (Zamzam Bellavance, RNC) IV/Blood Work: IV Infusing per Order (Zamzam Bellavance, RNC) Datetime: 10/16/2016 14:25 NBP Sys/Eda/Mean (mmHg): 131 (QS system process) : 79 (QS system process) : 100 (QS system process) Pulse: 87 (QS system process) Datetime: 10/16/2016 14:10 NBP Sys/Eda/Mean (mmHg): 132 (QS system process) : 82 (QS system process) : 101 (QS system process) Pulse: 88 (QS system process) Datetime: 10/16/2016 14:00 Temperature (F): 98.2 (Zamzam Bellavance, RNC) Temperature (C): 36.8 (QS system process) Temperature Route: Oral (Zamzam Bellavance, RNC) Monitor Mode: External (Zamzam Bellavance, RNC) Frequency (min): occassional (Zamzam Bellavance, RNC) Quality: Mild (MICHELLE King) Duration (sec): 40 (MICHELLE King) Duration Criteria: Less than Two 120 Second Contractions (MICHELLE King) Pattern: Normal: <= 5 Contractions in 10 Minutes (MICHELLE King) Resting Tone (Palpate): Relaxed (MICHELLE King) Monitor Mode: External US (MICHELLE King) Monitor Interventions for FHR: Ultrasound Adjusted (MICHELLE King) FHR Baseline Rate : 120 (MICHELLE King) FHR Baseline Changes: No Baseline Change (MICHELLE King) Variability: Moderate 6-25 bpm (MICHELLE King) Accelerations: 15X15 (MICHELLE King) Decelerations: None (MICHELLE King) Magnesium/Antihypertensives: Magnesium Sulfate IV (Gm/hr) @ (MICHELLE King) IV/Blood Work: IV Infusing per Order (MICHELLE King)
--- NOTE | 2016-10-16 20:01 | L&D Flow Sheet ---
LD Flowsheet Datetime Report Generated by CPN: 10/16/2016 20:00 Datetime: 10/16/2016 19:55 NBP Sys/Eda/Mean (mmHg): 123 (QS system process) : 68 (QS system process) : 90 (QS system process) Pulse: 81 (QS system process) Datetime: 10/16/2016 19:40 NBP Sys/Eda/Mean (mmHg): 132 (QS system process) : 84 (QS system process) : 102 (QS system process) Pulse: 91 (QS system process) Datetime: 10/16/2016 19:30 Communication: Provider at Bedside (Lara Gilbert RN) Communication Comments: Dr Brown at the bedside, answering pt's questions. Order for Ambien 10 mg and Tylenol 650 mg q 4 PRN for headache received. (Lara Gilbert RN) Datetime: 10/16/2016 19:25 NBP Sys/Eda/Mean (mmHg): 133 (QS system process) : 87 (QS system process) : 105 (QS system process) Pulse: 85 (QS system process) Pain Scale: 3 (Lara Gilbert RN) Pain Presence: Constant (Lara Gilbert RN) Pain Type: Sharp (Lara Gilbert RN) Pain Location: Head (Lara Gilbert RN) Level of Consciousness: Fully Conscious (Lara Gilbert RN) DTR's/Clonus: DTRs 2+; No Clonus (Lara Gilbert RN) Breath Sounds, Left: Clear and Equal (Lara Gilbert RN) Breath Sounds, Right: Clear and Equal (Lara Gilbert RN) Nausea/Vomiting: Denies (Lara Gilbert RN) RUQ Epigastric Pain: Denies (Lara Gilbert RN) Magnesium/Antihypertensives: Magnesium Sulfate IV (Gm/hr) @ (Annotations: 2 g/h) (Lara Gilbert RN) Instructional Method: Demo; Verbal; Patient Instructed (Lara Gilbert RN) Plan of Care: Plan of Care Discussed (Lara Gilbert RN) Datetime: 10/16/2016 19:11 NBP Sys/Eda/Mean (mmHg): 132 (QS system process) : 84 (QS system process) : 103 (QS system process) Pulse: 88 (QS system process) Datetime: 10/16/2016 19:00 Respirations: 16 (Zamzam Bellavance, RNC) Monitor Mode: External (Zamzam Bellavance, RNC) Frequency (min): occassional (Zamzam Bellavance, RNC) Quality: Mild (Zamzam Bellavance, RNC) Duration (sec): 40 (Zamzam Bellavance, RNC) Duration Criteria: Less than Two 120 Second Contractions (Zamzam Bellavance, RNC) Pattern: Normal: <= 5 Contractions in 10 Minutes (Zamzam Bellavance, RNC) Resting Tone (Palpate): Relaxed (Zamzam Bellavance, RNC) Monitor Mode: External US (Zamzam Bellavance, RNC) Monitor Interventions for FHR: Ultrasound Adjusted (Zamzam Bellavance, RNC) FHR Baseline Rate : 120 (Zamzam Bellavance, RNC) FHR Baseline Changes: No Baseline Change (Zamzam Bellavance, RNC) Variability: Moderate 6-25 bpm (Zamzam Bellavance, RNC) Accelerations: 15X15 (Zamzam Bellavance, RNC) Decelerations: None (Zamazm Bellavance, RNC) Level of Consciousness: Fully Conscious (Zamzam Bellavance, RNC) DTR's/Clonus: DTRs 2+ (Zamzam Bellavance, RNC) Headache: Denies (Zamzam Bellavance, RNC) Breath Sounds, Left: Clear and Equal (Zamzam Bellavance, RNC) Nausea/Vomiting: Denies (Zamzam Bellavance, RNC) RUQ Epigastric Pain: Denies (Zamzam Bellavance, RNC) Magnesium/Antihypertensives: Magnesium Sulfate IV (Gm/hr) @ (Zamzam Bellavance, RNC) IV/Blood Work: IV Infusing per Order (Zamzam Bellavance, RNC) Datetime: 10/16/2016 18:55 NBP Sys/Eda/Mean (mmHg): 120 (QS system process) : 71 (QS system process) : 91 (QS system process) Pulse: 81 (QS system process) Datetime: 10/16/2016 18:40 NBP Sys/Eda/Mean (mmHg): 130 (QS system process) : 78 (QS system process) : 98 (QS system process) Pulse: 86 (QS system process) Datetime: 10/16/2016 18:30 Respirations: 16 (Zamzam Bellavance, RNC) Monitor Mode: External (Zamzam Bellavance, RNC) Frequency (min): occassional (Zamzam Bellavance, RNC) Quality: Mild (Zamzam Bellavance, RNC) Duration (sec): 40 (Zamzam Bellavance, RNC) Duration Criteria: Less than Two 120 Second Contractions (Zamzam Bellavance, RNC) Pattern: Normal: <= 5 Contractions in 10 Minutes (Zamzam Bellavance, RNC) Resting Tone (Palpate): Relaxed (Zamzam Bellavance, RNC) Monitor Mode: External US (Zamzam Bellavance, RNC) Monitor Interventions for FHR: Ultrasound Adjusted (Zamzam Bellavance, RNC) FHR Baseline Rate : 120 (Zamzam Bellavance, RNC) FHR Baseline Changes: No Baseline Change (Zamzam Bellavance, RNC) Variability: Moderate 6-25 bpm (Zamzam Bellavance, RNC) Accelerations: 15X15 (Zamzam Bellavance, RNC) Decelerations: None (Zamzam Bellavance, RNC) Level of Consciousness: Fully Conscious (Zamzam Bellavance, RNC) DTR's/Clonus: DTRs 2+ (Zamzam Bellavance, RNC) Headache: Denies (Zamzam Bellavance, RNC) Breath Sounds, Left: Clear and Equal (Zamzam Bellavance, RNC) Nausea/Vomiting: Denies (Zamzam Bellavance, RNC) RUQ Epigastric Pain: Denies (Zamzam Bellavance, RNC) Magnesium/Antihypertensives: Magnesium Sulfate IV (Gm/hr) @ (Zamzam Bellavance, RNC) IV/Blood Work: IV Infusing per Order (Zamzam Bellavance, RNC) Datetime: 10/16/2016 18:25 NBP Sys/Eda/Mean (mmHg): 130 (QS system process) : 75 (QS system process) : 98 (QS system process) Pulse: 78 (QS system process) Datetime: 10/16/2016 18:10 NBP Sys/Eda/Mean (mmHg): 125 (QS system process) : 75 (QS system process) : 96 (QS system process) Pulse: 83 (QS system process) Datetime: 10/16/2016 18:00 Temperature (F): 98.2 (Zamzam Bellavance, RNC) Temperature (C): 36.8 (QS system process) Temperature Route: Oral (Zamzam Bellavance, RNC) Monitor Mode: External (Zamzam Bellavance, RNC) Frequency (min): occassional (Zamzam Bellavance, RNC) Quality: Mild (Zamzam Bellavance, RNC) Duration (sec): 40 (Zamzam Bellavance, RNC) Duration Criteria: Less than Two 120 Second Contractions (Zamzam Bellavance, RNC) Pattern: Normal: <= 5 Contractions in 10 Minutes (Zamzam Bellavance, RNC) Resting Tone (Palpate): Relaxed (Zamzam Bellavance, RNC) Monitor Mode: External US (Zamzam Bellavance, RNC) Monitor Interventions for FHR: Ultrasound Adjusted (Zamzam Bellavance, RNC) FHR Baseline Rate : 120 (Zamzam Bellavance, RNC) FHR Baseline Changes: No Baseline Change (Zamzam Bellavance, RNC) Variability: Moderate 6-25 bpm (Zamzam Bellavance, RNC) Accelerations: 15X15 (Zamzam Bellavance, RNC) Decelerations: None (Zamzam Bellavance, RNC) Level of Consciousness: Fully Conscious (Zamzam Bellavance, RNC) DTR's/Clonus: DTRs 2+ (Zamzam Bellavance, RNC) Headache: Denies (Zamzam Bellavance, RNC) Breath Sounds, Left: Clear and Equal (Zamzam Bellavance, RNC) Nausea/Vomiting: Denies (Zamzam Bellavance, RNC) RUQ Epigastric Pain: Denies (Zamzam Bellavance, RNC) Magnesium/Antihypertensives: Magnesium Sulfate IV (Gm/hr) @ (Zamzam Bellavance, RNC) IV/Blood Work: IV Infusing per Order (Zamzam Bellavance, RNC) Datetime: 10/16/2016 17:55 NBP Sys/Dea/Mean (mmHg): 124 (QS system process) : 72 (QS system process) : 93 (QS system process) Pulse: 80 (QS system process) Datetime: 10/16/2016 17:40 NBP Sys/Eda/Mean (mmHg): 121 (QS system process) : 75 (QS system process) : 94 (QS system process) Pulse: 76 (QS system process) Datetime: 10/16/2016 17:30 Monitor Mode: External (Zamzam Bellavance, RNC) Frequency (min): occassional (Zamzam Bellavance, RNC) Quality: Mild (Zamzam Bellavance, RNC) Duration (sec): 40 (Zamzam Bellavance, RNC) Duration Criteria: Less than Two 120 Second Contractions (Zamzam Bellavance, RNC) Pattern: Normal: <= 5 Contractions in 10 Minutes (Zamzam Bellavance, RNC) Resting Tone (Palpate): Relaxed (Zamzam Bellavance, RNC) Monitor Mode: External US (Zamzam Bellavance, RNC) Monitor Interventions for FHR: Ultrasound Adjusted (Zamzam Bellavance, RNC) FHR Baseline Rate : 120 (Zamzam Bellavance, RNC) FHR Baseline Changes: No Baseline Change (Zamzam Bellavance, RNC) Variability: Moderate 6-25 bpm (Zamzam Bellavance, RNC) Accelerations: 15X15 (Zamzam Bellavance, RNC) Decelerations: None (Zamzam Bellavance, RNC) Level of Consciousness: Fully Conscious (Zamzam Bellavance, RNC) DTR's/Clonus: DTRs 2+ (Zamzam Bellavance, RNC) Headache: Denies (Zamzam Bellavance, RNC) Breath Sounds, Left: Clear and Equal (Zamzam Bellavance, RNC) Nausea/Vomiting: Denies (Zamzam Bellavance, RNC) RUQ Epigastric Pain: Denies (Zamzam Bellavance, RNC) Magnesium/Antihypertensives: Magnesium Sulfate IV (Gm/hr) @ (Zamzam Bellavance, RNC) IV/Blood Work: IV Infusing per Order (Zamzam Bellavance, RNC) Datetime: 10/16/2016 17:25 NBP Sys/Eda/Mean (mmHg): 122 (QS system process) : 79 (QS system process) : 95 (QS system process) Pulse: 78 (QS system process) Datetime: 10/16/2016 17:10 NBP Sys/Eda/Mean (mmHg): 127 (QS system process) : 83 (QS system process) : 101 (QS system process) Pulse: 80 (QS system process) Datetime: 10/16/2016 17:00 Respirations: 16 (Zamzam Bellavance, RNC) Monitor Mode: External (Zamzam Bellavance, RNC) Frequency (min): occassional (Zamzam Bellavance, RNC) Quality: Mild (Zamzam Bellavance, RNC) Duration (sec): 40 (Zamzam Bellavance, RNC) Duration Criteria: Less than Two 120 Second Contractions (Zamzam Bellavance, RNC) Pattern: Normal: <= 5 Contractions in 10 Minutes (Zamzam Bellavance, RNC) Resting Tone (Palpate): Relaxed (Zamzam Bellavance, RNC) Monitor Mode: External US (Zamzam Bellavance, RNC) Monitor Interventions for FHR: Ultrasound Adjusted (Zamzam Bellavance, RNC) FHR Baseline Rate : 120 (Zamzam Bellavance, RNC) FHR Baseline Changes: No Baseline Change (Zamzam Bellavance, RNC) Variability: Moderate 6-25 bpm (Zamzam Bellavance, RNC) Accelerations: 15X15 (Zamzam Bellavance, RNC) Decelerations: None (Zamzam Bellavance, RNC) Pain Assessment Comments: sleeping (Zamzam Bellavance, RNC) Level of Consciousness: Fully Conscious (Zamzam Bellavance, RNC) DTR's/Clonus: DTRs 2+ (Zamzam Bellavance, RNC) Headache: Denies (Zamzam Bellavance, RNC) Breath Sounds, Left: Clear and Equal (Zamzam Bellavance, RNC) Nausea/Vomiting: Denies (Zamzam Bellavance, RNC) RUQ Epigastric Pain: Denies (Zamzam Bellavance, RNC) Magnesium/Antihypertensives: Magnesium Sulfate IV (Gm/hr) @ (Zamzam Bellavance, RNC) IV/Blood Work: IV Infusing per Order (Zamzam Bellavance, RNC) Datetime: 10/16/2016 16:55 NBP Sys/Eda/Mean (mmHg): 125 (QS system process) : 81 (QS system process) : 97 (QS system process) Pulse: 77 (QS system process) Datetime: 10/16/2016 16:40 NBP Sys/Eda/Mean (mmHg): 133 (QS system process) : 83 (QS system process) : 102 (QS system process) Pulse: 77 (QS system process) Datetime: 10/16/2016 16:30 Monitor Mode: External (Zamzam Bellavance, RNC) Frequency (min): occassional (Zamzam Bellavance, RNC) Quality: Mild (Zamzam Bellavance, RNC) Duration (sec): 40 (Zamzam Bellavance, RNC) Duration Criteria: Less than Two 120 Second Contractions (Zamzam Bellavance, RNC) Pattern: Normal: <= 5 Contractions in 10 Minutes (Zamzam Bellavance, RNC) Resting Tone (Palpate): Relaxed (Zamzam Bellavance, RNC) Monitor Mode: External US (Zamzam Bellavance, RNC) Monitor Interventions for FHR: Ultrasound Adjusted (Zamzam Bellavance, RNC) FHR Baseline Rate : 120 (Zamzam Bellavance, RNC) FHR Baseline Changes: No Baseline Change (Zamzam Bellavance, RNC) Variability: Moderate 6-25 bpm (Zamzam Bellavance, RNC) Accelerations: 15X15 (Zamzam Bellavance, RNC) Decelerations: None (Zamzam Bellavance, RNC) Pain Assessment Comments: nubain given for headache and patient states relief (Zamzambrandon Tarangoe, RNC) Level of Consciousness: Fully Conscious (Zamzam Bellavance, RNC) DTR's/Clonus: DTRs 2+ (Zamzam Bellavance, RNC) Headache: Denies (Zamzam Bellavance, RNC) Breath Sounds, Left: Clear and Equal (Zamzam Bellavance, RNC) Nausea/Vomiting: Denies (Zamzam Bellavance, RNC) RUQ Epigastric Pain: Denies (Zamzam Bellavance, RNC) Magnesium/Antihypertensives: Magnesium Sulfate IV (Gm/hr) @ (Zamzam Tarangoe, RNC) Analgesics/Sedatives: Nubain (mg) @ (Annotations: 10) (Zamzam Bellavance, RNC) IV/Blood Work: IV Infusing per Order (Zamzam Bellavance, RNC) Datetime: 10/16/2016 16:25 NBP Sys/Eda/Mean (mmHg): 137 (QS system process) : 95 (QS system process) : 111 (QS system process) Pulse: 88 (QS system process) Datetime: 10/16/2016 16:10 NBP Sys/Eda/Mean (mmHg): 142 (QS system process) : 96 (QS system process) : 112 (QS system process) Pulse: 86 (QS system process) Datetime: 10/16/2016 16:00 Temperature (F): 98.8 (Zamzam Bellavance, RNC) Temperature (C): 37.1 (QS system process) Temperature Route: Oral (Zamzam Bellavance, RNC) Monitor Mode: External (Zamzam Bellavance, RNC) Frequency (min): occassional (Zamzam Bellavance, RNC) Quality: Mild (Zamzam Bellavance, RNC) Duration (sec): 40 (Zamzam Bellavance, RNC) Duration Criteria: Less than Two 120 Second Contractions (Zamzam Bellavance, RNC) Pattern: Normal: <= 5 Contractions in 10 Minutes (Zamzam Bellavance, RNC) Resting Tone (Palpate): Relaxed (Zamzam Bellavance, RNC) Monitor Mode: External US (Zamzam Bellavance, RNC) Monitor Interventions for FHR: Ultrasound Adjusted (Zamzam Bellavance, RNC) FHR Baseline Rate : 120 (Zamzam Bellavance, RNC) FHR Baseline Changes: No Baseline Change (Zamzam Bellavance, RNC) Variability: Moderate 6-25 bpm (Zamzam Bellavance, RNC) Accelerations: 15X15 (Zamzam Bellavance, RNC) Decelerations: None (Zamzam Bellavance, RNC) Magnesium/Antihypertensives: Magnesium Sulfate IV (Gm/hr) @ (Zamzam Bellavance, RNC) IV/Blood Work: IV Infusing per Order (Zamzam Bellavance, RNC) Datetime: 10/16/2016 15:55 NBP Sys/Eda/Mean (mmHg): 135 (QS system process) : 92 (QS system process) : 109 (QS system process) Pulse: 91 (QS system process) Datetime: 10/16/2016 15:40 NBP Sys/Eda/Mean (mmHg): 133 (QS system process) : 86 (QS system process) : 105 (QS system process) Pulse: 89 (QS system process) Datetime: 10/16/2016 15:30 Monitor Mode: External (Zamzam Bellavance, RNC) Frequency (min): occassional (Zamzam Bellavance, RNC) Quality: Mild (Zamzam Bellavance, RNC) Duration (sec): 40 (Zamzam Bellavance, RNC) Duration Criteria: Less than Two 120 Second Contractions (Zamzam Bellavance, RNC) Pattern: Normal: <= 5 Contractions in 10 Minutes (Zamzam Bellavance, RNC) Resting Tone (Palpate): Relaxed (Zamzam Bellavance, RNC) Monitor Mode: External US (Zamzam Bellavance, RNC) Monitor Interventions for FHR: Ultrasound Adjusted (Zamzam Bellavance, RNC) FHR Baseline Rate : 120 (Zmazam Bellavance, RNC) FHR Baseline Changes: No Baseline Change (Zamzam Bellavance, RNC) Variability: Moderate 6-25 bpm (Zamzam Bellavance, RNC) Accelerations: 15X15 (Zamzam Bellavance, RNC) Decelerations: None (Zamzam Bellavance, RNC) Magnesium/Antihypertensives: Magnesium Sulfate IV (Gm/hr) @ (Zamzam Bellavance, RNC) IV/Blood Work: IV Infusing per Order (Zamzam Bellavance, RNC) Datetime: 10/16/2016 15:25 NBP Sys/Eda/Mean (mmHg): 130 (QS system process) : 78 (QS system process) : 99 (QS system process) Pulse: 90 (QS system process) Datetime: 10/16/2016 15:00 Monitor Mode: External (Zamzam Bellavance, RNC) Frequency (min): occassional (Zamzam Bellavance, RNC) Quality: Mild (Zamzam Bellavance, RNC) Duration (sec): 40 (Zamzam Bellavance, RNC) Duration Criteria: Less than Two 120 Second Contractions (Zamzam Bellavance, RNC) Pattern: Normal: <= 5 Contractions in 10 Minutes (Zamzam Bellavance, RNC) Resting Tone (Palpate): Relaxed (Zamzam Bellavance, RNC) Monitor Mode: External US (Zamzam Bellavance, RNC) Monitor Interventions for FHR: Ultrasound Adjusted (Zamzam Bellavance, RNC) FHR Baseline Rate : 120 (Zamzam Bellavance, RNC) FHR Baseline Changes: No Baseline Change (Zamzam Bellavance, RNC) Variability: Moderate 6-25 bpm (Zamzam Bellavance, RNC) Accelerations: 15X15 (Zamzam Bellavance, RNC) Decelerations: None (Zamzam Bellavance, RNC) Magnesium/Antihypertensives: Magnesium Sulfate IV (Gm/hr) @ (Zamzam Bellavance, RNC) IV/Blood Work: IV Infusing per Order (Zamzam Bellavance, RNC) Datetime: 10/16/2016 14:40 NBP Sys/Eda/Mean (mmHg): 135 (QS system process) : 82 (QS system process) : 104 (QS system process) Pulse: 85 (QS system process) Datetime: 10/16/2016 14:30 Respirations: 16 (Zamzam Bellavance, RNC) Monitor Mode: External (Zamzam Bellavance, RNC) Frequency (min): occassional (Zamzam Bellavance, RNC) Quality: Mild (Zamzam Bellavance, RNC) Duration (sec): 40 (Zamzam Bellavance, RNC) Duration Criteria: Less than Two 120 Second Contractions (Zamzam Bellavance, RNC) Pattern: Normal: <= 5 Contractions in 10 Minutes (Zamzam Bellavance, RNC) Resting Tone (Palpate): Relaxed (Zamzam Bellavance, RNC) Monitor Mode: External US (Zamzam Bellavance, RNC) Monitor Interventions for FHR: Ultrasound Adjusted (Zamzam Bellavance, RNC) FHR Baseline Rate : 120 (Zamzam Bellavance, RNC) FHR Baseline Changes: No Baseline Change (Zamzam Bellavance, RNC) Variability: Moderate 6-25 bpm (Zamzam Bellavance, RNC) Accelerations: 15X15 (Zamzam Bellavance, RNC) Decelerations: None (Zamzam Bellavance, RNC) Magnesium/Antihypertensives: Magnesium Sulfate IV (Gm/hr) @ (Zamzam Bellavance, RNC) IV/Blood Work: IV Infusing per Order (Zamzam Bellavance, RNC) Datetime: 10/16/2016 14:25 NBP Sys/Eda/Mean (mmHg): 131 (QS system process) : 79 (QS system process) : 100 (QS system process) Pulse: 87 (QS system process) Datetime: 10/16/2016 14:10 NBP Sys/Eda/Mean (mmHg): 132 (QS system process) : 82 (QS system process) : 101 (QS system process) Pulse: 88 (QS system process) Datetime: 10/16/2016 14:00 Temperature (F): 98.2 (Zamzam Bellavance, RNC) Temperature (C): 36.8 (QS system process) Temperature Route: Oral (Zamzam Bellavance, RNC) Monitor Mode: External (Zamzam Bellavance, RNC) Frequency (min): occassional (Zamzam Bellavance, RNC) Quality: Mild (Zamzam Bellavance, RNC) Duration (sec): 40 (Zamzam Bellavance, RNC) Duration Criteria: Less than Two 120 Second Contractions (Zamzam Bellavance, RNC) Pattern: Normal: <= 5 Contractions in 10 Minutes (Zamzam Bellavance, RNC) Resting Tone (Palpate): Relaxed (Zamzam Bellavance, RNC) Monitor Mode: External US (Zamzam Bellavance, RNC) Monitor Interventions for FHR: Ultrasound Adjusted (Zamazm Bellavance, RNC) FHR Baseline Rate : 120 (Zamzam Bellavance, RNC) FHR Baseline Changes: No Baseline Change (Zamzam Bellavance, RNC) Variability: Moderate 6-25 bpm (Zamzam Bellavance, RNC) Accelerations: 15X15 (Zamzam Bellavance, RNC) Decelerations: None (Zamzam Bellavance, RNC) Magnesium/Antihypertensives: Magnesium Sulfate IV (Gm/hr) @ (Zamzam Bellavance, RNC) IV/Blood Work: IV Infusing per Order (Zamzam Bellavance, RNC) Datetime: 10/16/2016 13:55 NBP Sys/Eda/Mean (mmHg): 127 (QS system process) : 84 (QS system process) : 102 (QS system process) Pulse: 85 (QS system process) Datetime: 10/16/2016 13:40 NBP Sys/Eda/Mean (mmHg): 139 (QS system process) : 88 (QS system process) : 107 (QS system process) Pulse: 86 (QS system process) Datetime: 10/16/2016 13:37 Monitor Mode: External (Zamzam Bellavance, RNC) Frequency (min): occassional (Zamzam Bellavance, RNC) Quality: Mild (Zamzam Bellavance, RNC) Duration (sec): 40 (Zamzam Bellavance, RNC) Duration Criteria: Less than Two 120 Second Contractions (Zamzam Bellavance, RNC) Pattern: Normal: <= 5 Contractions in 10 Minutes (Zamzam Bellavance, RNC) Resting Tone (Palpate): Relaxed (Zamzam Bellavance, RNC) Monitor Mode: External US (Zamzam Bellavance, RNC) Monitor Interventions for FHR: Ultrasound Adjusted (Zamzam Bellavance, RNC) FHR Baseline Rate : 120 (Zamzam Bellavance, RNC) FHR Baseline Changes: No Baseline Change (Zamzam Bellavance, RNC) Variability: Moderate 6-25 bpm (Zamzam Bellavance, RNC) Accelerations: 15X15 (Zamzam Bellavance, RNC) Decelerations: None (Zamzam Bellavance, RNC) Magnesium/Antihypertensives: Magnesium Sulfate IV (Gm/hr) @ (Zamzam Bellavance, RNC) IV/Blood Work: IV Infusing per Order (Zamzam Bellavance, RNC) Datetime: 10/16/2016 13:26 NBP Sys/Eda/Mean (mmHg): 118 (QS system process) : 74 (QS system process) : 92 (QS system process) Pulse: 78 (QS system process) Datetime: 10/16/2016 13:10 NBP Sys/Eda/Mean (mmHg): 114 (QS system process) : 65 (QS system process) : 85 (QS system process) Pulse: 75 (QS system process) Datetime: 10/16/2016 13:00 Monitor Mode: External (Zamzam Bellavance, RNC) Frequency (min): occassional (Zamzam Bellavance, RNC) Quality: Mild (Zamzam Bellavance, RNC) Duration (sec): 40 (Zamzam Bellavance, RNC) Duration Criteria: Less than Two 120 Second Contractions (Zamzam Bellavance, RNC) Pattern: Normal: <= 5 Contractions in 10 Minutes (Zamzam Bellavance, RNC) Resting Tone (Palpate): Relaxed (Zamzam Bellavance, RNC) Monitor Mode: External US (Zamzam Bellavance, RNC) Monitor Interventions for FHR: Ultrasound Adjusted (Zamzam Bellavance, RNC) FHR Baseline Rate : 120 (Zamzam Bellavance, RNC) FHR Baseline Changes: No Baseline Change (Zamzam Bellavance, RNC) Variability: Moderate 6-25 bpm (Zamzam Bellavance, RNC) Accelerations: 15X15 (Zamzam Bellavance, RNC) Decelerations: None (Zamzam Bellavance, RNC) Magnesium/Antihypertensives: Magnesium Sulfate IV (Gm/hr) @ (Zamzam Bellavance, RNC) IV/Blood Work: IV Infusing per Order (Zamzam Bellavance, RNC) Datetime: 10/16/2016 12:55 NBP Sys/Eda/Mean (mmHg): 126 (QS system process) : 77 (QS system process) : 96 (QS system process) Pulse: 82 (QS system process) Datetime: 10/16/2016 12:45 Antibiotics: Penicillin IV (Units) @ (Annotations: 2.5 mill) (Zamzam Bellavance, RNC) Datetime: 10/16/2016 12:40 NBP Sys/Eda/Mean (mmHg): 134 (QS system process) : 84 (QS system process) : 104 (QS system process) Pulse: 93 (QS system process) Datetime: 10/16/2016 12:30 Monitor Mode: External (Zamzam Bellavance, RNC) Frequency (min): occassional (Zamzam Bellavance, RNC) Quality: Mild (Zamzam Bellavance, RNC) Duration (sec): 40 (Zamzam Bellavance, RNC) Duration Criteria: Less than Two 120 Second Contractions (Zamzam Bellavance, RNC) Pattern: Normal: <= 5 Contractions in 10 Minutes (Zamzam Bellavance, RNC) Resting Tone (Palpate): Relaxed (Zamzam Bellavance, RNC) Monitor Mode: External US (Zamzam Bellavance, RNC) Monitor Interventions for FHR: Ultrasound Adjusted (Zamzam Bellavance, RNC) FHR Baseline Rate : 120 (Zamzam Bellavance, RNC) FHR Baseline Changes: No Baseline Change (Zamzam Bellavance, RNC) Variability: Moderate 6-25 bpm (Zamzam Bellavance, RNC) Accelerations: 15X15 (Zamzam Bellavance, RNC) Decelerations: None (Zamzam Bellavance, RNC) Magnesium/Antihypertensives: Magnesium Sulfate IV (Gm/hr) @ (Zamzam Bellavance, RNC) IV/Blood Work: IV Infusing per Order (Zamzam Bellavance, RNC) Datetime: 10/16/2016 12:25 NBP Sys/Eda/Mean (mmHg): 129 (QS system process) : 78 (QS system process) : 98 (QS system process) Pulse: 87 (QS system process) Datetime: 10/16/2016 12:10 NBP Sys/Eda/Mean (mmHg): 119 (QS system process) : 71 (QS system process) : 88 (QS system process) Pulse: 88 (QS system process) Datetime: 10/16/2016 12:00 Respirations: 16 (Zamzam Bellavance, RNC) Temperature (F): 98.1 (Zamzam Bellavance, RNC) Temperature (C): 36.7 (QS system process) Temperature Route: Oral (Zamzam Bellavance, RNC) Monitor Mode: External (Zamzam Bellavance, RNC) Monitor Interventions for UA: [place] Adjusted (Zamzam Bellavance, RNC) Frequency (min): occassional (Zamzam Bellavance, RNC) Quality: Mild (Zamzam Bellavance, RNC) Duration (sec): 40 (Zamzam Bellavance, RNC) Duration Criteria: Less than Two 120 Second Contractions (Zamzam Bellavance, RNC) Pattern: Normal: <= 5 Contractions in 10 Minutes (Zamzam Bellavance, RNC) Resting Tone (Palpate): Relaxed (Zamzam Bellavance, RNC) Monitor Mode: External US (Zamzam Bellavance, RNC) Monitor Interventions for FHR: Ultrasound Adjusted (Zamzam Bellavance, RNC) FHR Baseline Rate : 120 (Zamzam Bellavance, RNC) FHR Baseline Changes: No Baseline Change (Zamzam Bellavance, RNC) Variability: Moderate 6-25 bpm (Zamzam Bellavance, RNC) Accelerations: 15X15 (Zamzam Bellavance, RNC) Decelerations: None (Zamzam Bellavance, RNC) Magnesium/Antihypertensives: Magnesium Sulfate IV (Gm/hr) @ (Annotations: ) (Zamzam Bellavance, RNC) IV/Blood Work: IV Infusing per Order (Zamzam Bellavance, RNC) Datetime: 10/16/2016 11:55 NBP Sys/Eda/Mean (mmHg): 128 (QS system process) : 74 (QS system process) : 94 (QS system process) Pulse: 90 (QS system process) Datetime: 10/16/2016 11:30 Monitor Mode: External (Zamzam Bellavance, RNC) Frequency (min): 9-12 (Zamzam Bellavance, RNC) Quality: Mild (Zamzam Bellavance, RNC) Duration (sec): 50 (Zamzam Bellavance, RNC) Duration Criteria: Less than Two 120 Second Contractions (Zamzam Bellavance, RNC) Pattern: Normal: <= 5 Contractions in 10 Minutes (Zamzam Bellavance, RNC) Resting Tone (Palpate): Relaxed (Zamzam Bellavance, RNC) Monitor Mode: External US (Zamzam Bellavance, RNC) Monitor Interventions for FHR: Ultrasound Adjusted (Zamzam Bellavance, RNC) FHR Baseline Rate : 120 (Zamzam Bellavance, RNC) FHR Baseline Changes: No Baseline Change (Zamzam Bellavance, RNC) Variability: Moderate 6-25 bpm (Zamzam Bellavance, RNC) Accelerations: 15X15 (Zamzam Bellavance, RNC) Decelerations: None (Zamzam Bellavance, RNC) Pain Scale: 1 (Zamzam Bellavance, RNC) Pain Presence: Constant (Zamzam Bellavance, RNC) Pain Type: Ache (Zamzam Bellavance, RNC) Pain Location: Head (Zamzam Bellavance, RNC) Pain Goal: 0 (Zamzam Bellavance, RNC) Pain Coping: Sleeping (Zamzam Bellavance, RNC) Datetime: 10/16/2016 11:25 NBP Sys/Eda/Mean (mmHg): 126 (QS system process) : 79 (QS system process) : 96 (QS system process) Pulse: 93 (QS system process) Datetime: 10/16/2016 11:10 NBP Sys/Eda/Mean (mmHg): 131 (QS system process) : 81 (QS system process) : 100 (QS system process) Pulse: 94 (QS system process) Datetime: 10/16/2016 11:00 Respirations: 16 (Zamzam Bellavance, RNC) Monitor Mode: External (Zamzam Bellavance, RNC) Frequency (min): 9-12 (Zamzam Bellavance, RNC) Quality: Mild (Zamzam Bellavance, RNC) Duration (sec): 50 (Zamzam Bellavance, RNC) Duration Criteria: Less than Two 120 Second Contractions (Zamzam Bellavance, RNC) Pattern: Normal: <= 5 Contractions in 10 Minutes (Zamzam Bellavance, RNC) Resting Tone (Palpate): Relaxed (Zamzam Bellavance, RNC) Monitor Mode: External US (Zamzam Bellavance, RNC) Monitor Interventions for FHR: Ultrasound Adjusted (Zamzam Bellavance, RNC) FHR Baseline Rate : 120 (Zamzam Bellavance, RNC) FHR Baseline Changes: No Baseline Change (Zamzam Bellavance, RNC) Variability: Moderate 6-25 bpm (Zamzam Bellavance, RNC) Accelerations: 15X15 (Zamzam Bellavance, RNC) Decelerations: None (Zamzam Bellavance, RNC) Pain Scale: 4 (Zamzam Bellavance, RNC) Pain Presence: Constant (Zamzam Bellavance, RNC) Pain Type: Ache (Zamzam Bellavance, RNC) Pain Location: Head (Zamzam Bellavance, RNC) Pain Goal: 0 (Zamzam Bellavance, RNC) Pain Relief Measures: Pain Medication Given (Annotations: tylenol 925 given po) (Zamzam Bellavance, RNC) Pain Coping: Sleeping (Zamzam Bellavance, RNC) Datetime: 10/16/2016 10:55 NBP Sys/Eda/Mean (mmHg): 126 (QS system process) : 86 (QS system process) : 102 (QS system process) Pulse: 86 (QS system process) Datetime: 10/16/2016 10:40 NBP Sys/Eda/Mean (mmHg): 118 (QS system process) : 80 (QS system process) : 95 (QS system process) Pulse: 103 (QS system process) Datetime: 10/16/2016 10:30 Respirations: 16 (Zamzam Bellavance, RNC) Monitor Mode: External (Zamzam Bellavance, RNC) Monitor Interventions for UA: [place] Adjusted (Zamzam Bellavance, RNC) Frequency (min): occassional (Zamzam Bellavance, RNC) Resting Tone (Palpate): Relaxed (Zamzam Bellavance, RNC) Monitor Mode: External US (Zamzam Bellavance, RNC) Monitor Interventions for FHR: Ultrasound Adjusted (Zamzam Bellavance, RNC) FHR Baseline Rate : 120 (Zamzam Bellavance, RNC) Variability: Moderate 6-25 bpm (Zamzam Bellavance, RNC) Accelerations: 15X15 (Zamzam Bellavance, RNC) Decelerations: None (Zamzam Bellavance, RNC) Pain Scale: 0 (Zamzam Bellavance, RNC) Level of Consciousness: Fully Conscious (Zamzam Bellavance, RNC) DTR's/Clonus: DTRs 2+ (Zamzam Bellavance, RNC) Headache: Denies (Zamzam Bellavance, RNC) Breath Sounds, Left: Clear and Equal (Zamzam Bellavance, RNC) Breath Sounds, Right: Clear and Equal (Zamzam Bellavance, RNC) Nausea/Vomiting: Denies (Zamzam Bellavance, RNC) RUQ Epigastric Pain: Denies (Zamzam Bellavance, RNC) Magnesium/Antihypertensives: Magnesium Sulfate IV (Gm/hr) @ (Zamzam Bellavance, RNC) IV/Blood Work: IV Infusing per Order (Zamzam Bellavance, RNC) Datetime: 10/16/2016 10:25 NBP Sys/Eda/Mean (mmHg): 126 (QS system process) : 82 (QS system process) : 98 (QS system process) Pulse: 98 (QS system process) Datetime: 10/16/2016 10:10 NBP Sys/Eda/Mean (mmHg): 119 (QS system process) : 70 (QS system process) : 89 (QS system process) Pulse: 78 (QS system process) Datetime: 10/16/2016 10:00 Temperature (F): 98.0 (Zamzam Bellavance, RNC) Temperature (C): 36.7 (QS system process) Temperature Route: Oral (Zamzam Bellavance, RNC) Monitor Mode: External (Zamzam Bellavance, RNC) Monitor Interventions for UA: [place] Adjusted (Zamzam Bellavance, RNC) Frequency (min): occassional (Zamzam Bellavance, RNC) Resting Tone (Palpate): Relaxed (Zamzam Bellavance, RNC) Monitor Mode: External US (Zamzam Bellavance, RNC) Monitor Interventions for FHR: Ultrasound Adjusted (Zamzam Bellavance, RNC) FHR Baseline Rate : 120 (Zamzam Bellavance, RNC) Variability: Moderate 6-25 bpm (Zamzam Bellavance, RNC) Accelerations: 15X15 (Zamzam Bellavance, RNC) Decelerations: None (Zamzam Bellavance, RNC) Pain Scale: 0 (Zamzam Bellavance, RNC) Level of Consciousness: Fully Conscious (Zamzam Bellavance, RNC) DTR's/Clonus: DTRs 2+ (Zamzam Bellavance, RNC) Headache: Denies (Zamzam Bellavance, RNC) Breath Sounds, Left: Clear and Equal (Zamzam Bellavance, RNC) Breath Sounds, Right: Clear and Equal (Zamzam Bellavance, RNC) Nausea/Vomiting: Denies (Zamzam Bellavance, RNC) RUQ Epigastric Pain: Denies (Zamzam Bellavance, RNC) Magnesium/Antihypertensives: Magnesium Sulfate IV (Gm/hr) @ (Zamzam Bellavance, RNC) IV/Blood Work: IV Infusing per Order (Zamzam Bellavance, RNC) Datetime: 10/16/2016 09:55 NBP Sys/Eda/Mean (mmHg): 127 (QS system process) : 80 (QS system process) : 97 (QS system process) Pulse: 90 (QS system process) Datetime: 10/16/2016 09:40 NBP Sys/Eda/Mean (mmHg): 129 (QS system process) : 87 (QS system process) : 103 (QS system process) Pulse: 96 (QS system process) Datetime: 10/16/2016 09:30 Monitor Mode: External (Zamzam Bellavance, RNC) Monitor Interventions for UA: [place] Adjusted (Zamzam Bellavance, RNC) Frequency (min): occassional (Zamzam Bellavance, RNC) Resting Tone (Palpate): Relaxed (Zamzam Bellavance, RNC) Monitor Mode: External US (Zamzam Bellavance, RNC) Monitor Interventions for FHR: Ultrasound Adjusted (Zamzam Bellavance, RNC) FHR Baseline Rate : 120 (Zamzam Bellavance, RNC) Variability: Moderate 6-25 bpm (Zamzam Bellavance, RNC) Accelerations: 15X15 (Zamzam Bellavance, RNC) Decelerations: None (Zamzam Bellavance, RNC) Pain Scale: 0 (Zamzam Bellavance, RNC) Level of Consciousness: Fully Conscious (Zamzam Bellavance, RNC) DTR's/Clonus: DTRs 2+ (Zamzam Bellavance, RNC) Headache: Denies (Zamzam Bellavance, RNC) Breath Sounds, Left: Clear and Equal (Zamzam Bellavance, RNC) Breath Sounds, Right: Clear and Equal (Zamzam Bellavance, RNC) Nausea/Vomiting: Denies (Zamzam Bellavance, RNC) RUQ Epigastric Pain: Denies (Zamzam Bellavance, RNC) Magnesium/Antihypertensives: Magnesium Sulfate IV (Gm/hr) @ (Zamzam Bellavance, RNC) IV/Blood Work: IV Infusing per Order (Zamzam Bellavance, RNC) Datetime: 10/16/2016 09:25 NBP Sys/Eda/Mean (mmHg): 130 (QS system process) : 82 (QS system process) : 99 (QS system process) Pulse: 94 (QS system process) Datetime: 10/16/2016 09:10 NBP Sys/Eda/Mean (mmHg): 129 (QS system process) : 82 (QS system process) : 99 (QS system process) Pulse: 97 (QS system process) Datetime: 10/16/2016 09:00 Respirations: 16 (Zamzam Bellavance, RNC) Temperature (F): 97.9 (Zamzam Bellavance, RNC) Temperature (C): 36.6 (QS system process) Temperature Route: Oral (Zamzam Bellavance, RNC) Monitor Mode: External (Zamzam Bellavance, RNC) Monitor Interventions for UA: [place] Adjusted (Zamzam Bellavance, RNC) Frequency (min): occassional (Zamzam Felicitaavance, RNC) Resting Tone (Palpate): Relaxed (Zamzam Aguilance, RNC) Monitor Mode: External US (Zamzam [place]ang[place], RNC) Monitor Interventions for FHR: Ultrasound Adjusted (Zamzam Aguilance, RNC) FHR Baseline Rate : 120 (Zamzam Felicitaavance, RNC) Variability: Moderate 6-25 bpm (Zamzam Bellavance, RNC) Accelerations: 15X15 (Zamzam Bellavance, RNC) Decelerations: None (Zamzam Bellavance, RNC) Pain Scale: 0 (Zamzam Aguilance, RNC) Level of Consciousness: Fully Conscious (Zamzam Felicitaavance, RNC) DTR's/Clonus: DTRs 2+ (Zamzam Bellavance, RNC) Headache: Denies (Zamzam Aguilance, RNC) Breath Sounds, Left: Clear and Equal (Zamzam Bellavance, RNC) Breath Sounds, Right: Clear and Equal (Zamzam Bellavance, RNC) Nausea/Vomiting: Denies (Zamzam Aguilance, RNC) RUQ Epigastric Pain: Denies (Zamzam Aguilance, RNC) Magnesium/Antihypertensives: Magnesium Sulfate IV (Gm/hr) @ (Zamzam [place], RNC) Antibiotics: Penicillin IV (Units) @ (Annotations: 2.5 mill) (Zamzam Ortiz, RNC) IV/Blood Work: IV Infusing per Order (Zamzam Ortiz, RNC) Datetime: 10/16/2016 08:55 NBP Sys/Eda/Mean (mmHg): 129 (QS system process) : 88 (QS system process) : 102 (QS system process) Pulse: 99 (QS system process) Datetime: 10/16/2016 08:40 NBP Sys/Eda/Mean (mmHg): 125 (QS system process) : 86 (QS system process) : 101 (QS system process) Pulse: 100 (QS system process) Datetime: 10/16/2016 08:30 Respirations: 16 (Zamzam Bellavance, RNC) Monitor Mode: External (Zamzam Bellavance, RNC) Monitor Interventions for UA: [place] Adjusted (Zamzam Bellavance, RNC) Frequency (min): occassional (Zamzam Bellavance, RNC) Resting Tone (Palpate): Relaxed (Zamzam Bellavance, RNC) Monitor Mode: External US (Zamzam Bellavance, RNC) Monitor Interventions for FHR: Ultrasound Adjusted (Zamzam Bellavance, RNC) FHR Baseline Rate : 120 (Zamzam Bellavance, RNC) Variability: Moderate 6-25 bpm (Zamzam Bellavance, RNC) Accelerations: 15X15 (Zamzam Bellavance, RNC) Decelerations: None (Zamzam Bellavance, RNC) Pain Scale: 0 (Zamzam Bellavance, RNC) Level of Consciousness: Fully Conscious (Zamzam Bellavance, RNC) DTR's/Clonus: DTRs 2+ (Zamzam Bellavance, RNC) Headache: Denies (Zamzam Bellavance, RNC) Breath Sounds, Left: Clear and Equal (Zamzam Bellavance, RNC) Breath Sounds, Right: Clear and Equal (Zamzam Bellavance, RNC) Nausea/Vomiting: Denies (Zamzam Bellavance, RNC) RUQ Epigastric Pain: Denies (Zamzam Bellavance, RNC) Magnesium/Antihypertensives: Magnesium Sulfate IV (Gm/hr) @ (Zamzam Bellavance, RNC) IV/Blood Work: IV Infusing per Order (Zamzam Bellavance, RNC) Datetime: 10/16/2016 08:25 NBP Sys/Eda/Mean (mmHg): 131 (QS system process) : 90 (QS system process) : 106 (QS system process) Pulse: 100 (QS system process) Datetime: 10/16/2016 08:10 NBP Sys/Eda/Mean (mmHg): 132 (QS system process) : 92 (QS system process) : 108 (QS system process) Pulse: 99 (QS system process) Datetime: 10/16/2016 08:00 Temperature (F): 98.0 (Zamzam Bellavance, RNC) Temperature (C): 36.7 (QS system process) Temperature Route: Oral (Zamzam Bellavance, RNC) Monitor Mode: External (Zamzam Bellavance, RNC) Monitor Interventions for UA: [place] Adjusted (Zamzam Bellavance, RNC) Frequency (min): occassional (Zamzam Bellavance, RNC) Resting Tone (Palpate): Relaxed (Zamzam Bellavance, RNC) Monitor Mode: External US (Zamzam Bellavance, RNC) Monitor Interventions for FHR: Ultrasound Adjusted (Zamzam Bellavance, RNC) FHR Baseline Rate : 120 (Zamzam Bellavance, RNC) Variability: Moderate 6-25 bpm (Zamzam Bellavance, RNC) Accelerations: 15X15 (Zamzam Bellavance, RNC) Decelerations: None (Zamzam Bellavance, RNC) Pain Scale: 0 (Zamzam Bellavance, RNC) Level of Consciousness: Fully Conscious (Zamzam Bellavance, RNC) DTR's/Clonus: DTRs 2+ (Zamzam Bellavance, RNC) Headache: Denies (Zamzam Bellavance, RNC) Breath Sounds, Left: Clear and Equal (Zamzam Bellavance, RNC) Breath Sounds, Right: Clear and Equal (Zamzam Bellavance, RNC) Nausea/Vomiting: Denies (Zamzam Bellavance, RNC) RUQ Epigastric Pain: Denies (Zamzam Bellavance, RNC) Magnesium/Antihypertensives: Magnesium Sulfate IV (Gm/hr) @ (Zamzam Bellavance, RNC) IV/Blood Work: IV Infusing per Order (Zamzam Bellavance, RNC) Datetime: 10/16/2016 07:30 Respirations: 16 (Zamzam Bellavance, RNC) Monitor Mode: External (Zamzam Bellavance, RNC) Monitor Interventions for UA: [place] Adjusted (Zamzam Bellavance, RNC) Frequency (min): occassional (Zamzam Bellavance, RNC) Resting Tone (Palpate): Relaxed (Zamzam Bellavance, RNC) Monitor Mode: External US (Zamzam Bellavance, RNC) Monitor Interventions for FHR: Ultrasound Adjusted (Zamzam Bellavance, RNC) FHR Baseline Rate : 120 (Zamzam Bellavance, RNC) Variability: Moderate 6-25 bpm (Zamzam Bellavance, RNC) Accelerations: 15X15 (Zamzam Bellavance, RNC) Decelerations: None (Zamzam Bellavance, RNC) Pain Scale: 0 (Zamzam Ortiz, ZEENATC) Level of Consciousness: Fully Conscious (Zamzam Ortiz, ZEENATC) DTR's/Clonus: DTRs 2+ (Zamzam Ortiz, RNC) Headache: Denies (Zamzam Ortiz, RNC) Breath Sounds, Left: Clear and Equal (Zamzam Ortiz, ZEENATC) Breath Sounds, Right: Clear and Equal (Zamzam Ortiz, RNC) Nausea/Vomiting: Denies (Zamzam Ortiz, RNC) RUQ Epigastric Pain: Denies (Zamzam Ortiz, RNC) Magnesium/Antihypertensives: Magnesium Sulfate IV (Gm/hr) @ (Annotations: ) (MICHELLE King) IV/Blood Work: IV Infusing per Order (MICHELLE King)
[2016-10-16] MEDS: ACETAMINOPHEN 325 MG TABLET PO PRN (20:59)
[2016-10-16] MEDS ORDERED: ZOLPIDEM TARTRATE 5 MG TABLET ONE (23:15)
[2016-10-17] MEDS ORDERED: ZOLPIDEM TARTRATE 5 MG TABLET PO ONE
[2016-10-17] MEDS ORDERED: PENICILLIN G-K 5 MILLION UNIT VIAL ONE ×2 (00:44→04:00)
[2016-10-17] MEDS: MAGNESIUM SULFATE 500 ML IV PRN (00:45)
[2016-10-17] MEDS: PENICILLIN G-K 5 MILLION UNIT VIAL IV SCH ×2 (01:01→04:31)
[2016-10-17] MEDS ORDERED: BETAMET ACET/BETAMET NA INJ 6 MG/1 ML ONE ×2 (04:00→04:30)
[2016-10-17] MEDS: BETAMET ACET/BETAMET NA INJ 6 MG/1 ML IM SCH (04:29)
[2016-10-17] MEDS ORDERED: AZITHROMYCIN INJ 500 MG VIAL IV ONE (06:04)
[2016-10-17 07:09] LABS: ABSOLUTE LYMPHOCYTES (AUTO) 1.4 10^3/uL (0.5-4.7); ABSOLUTE MONOCYTES (AUTO) 0.5 10^3/uL (0.1-1.4); ABSOLUTE NEUT (AUTO) 8.5 10^3/uL (1.7-8.2); BASOPHILS % (AUTO) 0.1 % (0-2); EOSINOPHILS % (AUTO) 0.1 % (0-6); HEMATOCRIT 30.6 % (36.0-47.0); HEMOGLOBIN 10.1 g/dL (12.0-15.5); HGB HCT DIFFERENCE -0.3; LYMPHOCYTES % (AUTO) 13.8 % (13-45); MEAN CORPUSCULAR HEMOGLOBIN 26.3 pg (27.0-33.4); MEAN CORPUSCULAR VOLUME 80 fl (80-97); MONOCYTES % (AUTO) 4.5 % (3-13); RED BLOOD COUNT 3.85 10^6/uL (3.72-5.28); RED CELL DISTRIBUTION WIDTH 14.1 % (11.5-14.0); SEGMENTED NEUTROPHILS % (AUTO) 81.5 % (42-78); WHITE BLOOD COUNT 10.4 10^3/uL (4.0-10.5)
--- NOTE | 2016-10-17 08:01 | L&D Flow Sheet ---
LD Flowsheet Datetime Report Generated by CPN: 10/17/2016 08:00 Datetime: 10/17/2016 07:55 NBP Sys/Eda/Mean (mmHg): 111 (QS system process) : 65 (QS system process) : 82 (QS system process) Pulse: 82 (QS system process) LaborFlag: Labor (QS system process) Datetime: 10/17/2016 07:47 Monitor Interventions for FHR: Ultrasound Adjusted (Francine Ramos RN) Comments: RN @ bedside adjusting ultrasound (Francine Ramos, RN) Datetime: 10/17/2016 07:45 Magnesium/Antihypertensives: Magnesium Sulfate Discontinued (Francine Ramos, RN) Datetime: 10/17/2016 07:43 Communication Comments: Order received to turn patient's Magnesium Sulfate off and transfer to the floor. (Francine Ramos, RN) Datetime: 10/17/2016 07:40 NBP Sys/Eda/Mean (mmHg): 97 (QS system process) : 56 (QS system process) : 71 (QS system process) Pulse: 83 (QS system process) LaborFlag: Labor (QS system process) Datetime: 10/17/2016 07:30 Monitor Mode: External; Palpation (Francine Marhefka, RN) Frequency (min): No ctxs noted (Francine Marhefka, RN) Quality: Mild (Francine Marhefka, RN) Resting Tone (Palpate): Relaxed (Francine Marhefka, RN) Monitor Mode: External US (Francine Marhefka, RN) FHR Baseline Rate : 130 (Francine Marhefka, RN) FHR Baseline Changes: No Baseline Change (Francine Marhefka, RN) Variability: Moderate 6-25 bpm (Francine Marhefka, RN) Accelerations: 15X15 (Francine Marhefka, RN) Decelerations: None (Francine Marhefka, RN) Datetime: 10/17/2016 07:25 NBP Sys/Eda/Mean (mmHg): 102 (QS system process) : 60 (QS system process) : 76 (QS system process) Pulse: 85 (QS system process) LaborFlag: Labor (QS system process) Datetime: 10/17/2016 07:20 Communication: Report Given to @ [facility] RN (Lara Lewisberrywood, RN) Datetime: 10/17/2016 07:10 NBP Sys/Eda/Mean (mmHg): 106 (QS system process) : 64 (QS system process) : 80 (QS system process) Pulse: 82 (QS system process) LaborFlag: Labor (QS system process) Datetime: 10/17/2016 07:00 Monitor Mode: External (Lara Ledgerwood, RN) Frequency (min): none (Lara Ledgerwood, RN) Resting Tone (Palpate): Relaxed (Lara Ledgerwood, RN) Monitor Mode: External US (Lara Ledgerwood, RN) FHR Baseline Rate : 125 (Lara Ledgerwood, RN) FHR Baseline Changes: No Baseline Change (Lara Ledgerwood, RN) Variability: Moderate 6-25 bpm (Lara Ledgerwood, RN) Accelerations: None (Lara Ledgerwood, RN) Decelerations: None (Alra Ledgerwood, RN) Level of Consciousness: Fully Conscious (Lara Ledgerwood, RN) DTR's/Clonus: DTRs 2+; No Clonus (Lara Ledgerwood, RN) Headache: Generalized (Lara Ledgerwood, RN) Breath Sounds, Left: Clear and Equal (Lara Ledgerwood, RN) Breath Sounds, Right: Clear and Equal (Lara Ledgerwood, RN) Nausea/Vomiting: Denies (Lara Ledgerwood, RN) RUQ Epigastric Pain: Denies (Lara Ledgerwood, RN) Datetime: 10/17/2016 06:55 NBP Sys/Eda/Mean (mmHg): 114 (QS system process) : 69 (QS system process) : 87 (QS system process) Pulse: 86 (QS system process) Respirations: 14 (Lara Ledgerwood, RN) LaborFlag: Labor (QS system process) Datetime: 10/17/2016 06:40 NBP Sys/Eda/Mean (mmHg): 109 (QS system process) : 64 (QS system process) : 82 (QS system process) Pulse: 82 (QS system process) LaborFlag: Labor (QS system process) Datetime: 10/17/2016 06:30 Monitor Mode: External (Lara Ledgerwood, RN) Frequency (min): none (Lara Ledgerwood, RN) Resting Tone (Palpate): Relaxed (Lara Ledgerwood, RN) Monitor Mode: External US (Lara Ledgerwood, RN) FHR Baseline Rate : 125 (Lara Ledgerwood, RN) FHR Baseline Changes: No Baseline Change (Lara Ledgerwood, RN) Variability: Minimal - Undetectable to <=5 bpm (Lara Ledgerwood, RN) Accelerations: None (Lara Ledgerwood, RN) Decelerations: None (Lara Ledgerwood, RN) Magnesium/Antihypertensives: Magnesium Sulfate IV (Gm/hr) @ 2 (Lara Ledgerwood, RN) Datetime: 10/17/2016 06:25 NBP Sys/Eda/Mean (mmHg): 119 (QS system process) : 74 (QS system process) : 92 (QS system process) Pulse: 82 (QS system process) LaborFlag: Labor (QS system process) Datetime: 10/17/2016 06:20 Medication Comments: Azithromycin 500 mg/250 ml given. (Lara Lewisberrywood, RN) Datetime: 10/17/2016 06:10 NBP Sys/Eda/Mean (mmHg): 121 (QS system process) : 74 (QS system process) : 93 (QS system process) Pulse: 82 (QS system process) Temperature (F): 97.4 (Lara Ledgerwood, RN) Temperature (C): 36.3 (QS system process) Temperature Route: Oral (Lara Ledgerwood, RN) LaborFlag: Labor (QS system process) Datetime: 10/17/2016 06:00 Monitor Mode: External (Lara Ledgerwood, RN) Frequency (min): none (Lara Ledgerwood, RN) Resting Tone (Palpate): Relaxed (Lara Ledgerwood, RN) Monitor Mode: External US (Lara Ledgerwood, RN) FHR Baseline Rate : 125 (Lara Ledgerwood, RN) FHR Baseline Changes: No Baseline Change (Lara Ledgerwood, RN) Variability: Moderate 6-25 bpm (Lara Ledgerwood, RN) Accelerations: 10X10 (Lraa Ledgerwood, RN) Decelerations: None (Lara Ledgerwood, RN) Level of Consciousness: Fully Conscious (Lara Ledgerwood, RN) DTR's/Clonus: DTRs 2+; No Clonus (Lara Ledgerwood, RN) Headache: Denies (Lara Ledgerwood, RN) Breath Sounds, Left: Clear and Equal (Lara Ledgerwood, RN) Breath Sounds, Right: Clear and Equal (Lara Ledgerwood, RN) Nausea/Vomiting: Denies (Lara Ledgerwood, RN) RUQ Epigastric Pain: Denies (Lara Ledgerwood, RN) Magnesium/Antihypertensives: Magnesium Sulfate IV (Gm/hr) @ (Annotations: 2) (Lara Ledgerwood, RN) Datetime: 10/17/2016 05:55 NBP Sys/Eda/Mean (mmHg): 119 (QS system process) : 71 (QS system process) : 90 (QS system process) Pulse: 80 (QS system process) LaborFlag: Labor (QS system process) Datetime: 10/17/2016 05:40 NBP Sys/Eda/Mean (mmHg): 112 (QS system process) : 66 (QS system process) : 84 (QS system process) Pulse: 75 (QS system process) LaborFlag: Labor (QS system process) Datetime: 10/17/2016 05:30 Monitor Mode: External (Lara Ledgerwood, RN) Frequency (min): none (Lara Ledgerwood, RN) Resting Tone (Palpate): Relaxed (Lara Ledgerwood, RN) Monitor Mode: External US (Lara Ledgerwood, RN) FHR Baseline Rate : 125 (Lara Ledgerwood, RN) FHR Baseline Changes: No Baseline Change (Lara Ledgerwood, RN) Variability: Moderate 6-25 bpm (Lara Ledgerwood, RN) Accelerations: 15X15 (Lara Ledgerwood, RN) Decelerations: None (Lara Ledgerwood, RN) Magnesium/Antihypertensives: Magnesium Sulfate IV (Gm/hr) @ (Annotations: 2) (Lara Ledgerwood, RN) Datetime: 10/17/2016 05:25 NBP Sys/Eda/Mean (mmHg): 115 (QS system process) : 70 (QS system process) : 88 (QS system process) Pulse: 77 (QS system process) LaborFlag: Labor (QS system process) Datetime: 10/17/2016 05:10 NBP Sys/Eda/Mean (mmHg): 116 (QS system process) : 69 (QS system process) : 87 (QS system process) Pulse: 75 (QS system process) LaborFlag: Labor (QS system process) Datetime: 10/17/2016 05:00 Monitor Mode: External (Lara Ledgerwood, RN) Frequency (min): none (Lara Ledgerwood, RN) Resting Tone (Palpate): Relaxed (Lara Ledgerwood, RN) Monitor Mode: External US (Lara Ledgerwood, RN) FHR Baseline Rate : 135 (Lara Ledgerwood, RN) FHR Baseline Changes: No Baseline Change (Lara Ledgerwood, RN) Variability: Moderate 6-25 bpm (Lara Ledgerwood, RN) Accelerations: 15X15 (Lara Ledgerwood, RN) Decelerations: None (Lara Ledgerwood, RN) Level of Consciousness: Fully Conscious (Lara Ledgerwood, RN) DTR's/Clonus: DTRs 2+; No Clonus (Lara Ledgerwood, RN) Headache: Denies (Lara Ledgerwood, RN) Breath Sounds, Left: Clear and Equal (Lara Ledgerwood, RN) Breath Sounds, Right: Clear and Equal (Lara Ledgerwood, RN) Nausea/Vomiting: Denies (Lara Ledgerwood, RN) RUQ Epigastric Pain: Denies (Lara Ledgerwood, RN) Magnesium/Antihypertensives: Magnesium Sulfate IV (Gm/hr) @ (Annotations: 2) (Lara Ledgerwood, RN) Datetime: 10/17/2016 04:55 NBP Sys/Eda/Mean (mmHg): 118 (QS system process) : 72 (QS system process) : 90 (QS system process) Pulse: 77 (QS system process) LaborFlag: Labor (QS system process) Datetime: 10/17/2016 04:40 NBP Sys/Eda/Mean (mmHg): 126 (QS system process) : 77 (QS system process) : 97 (QS system process) Pulse: 88 (QS system process) Respirations: 15 ([facility] LaborFlag: Labor (QS system process) Datetime: 10/17/2016 04:31 Steroids: Celestone 12mg IM - Dose 2 (Lara Ledgerwood, RN) Antibiotics: Penicillin IV (Units) @ [id number] (Lara Ledgerwood, RN) Medication Comments: R Hip (Lara Gilbert, RN) Datetime: 10/17/2016 04:30 Monitor Mode: External (Lara Gauravgerwood, RN) Frequency (min): none (Lara Ledgerwood, RN) Resting Tone (Palpate): Relaxed (Lara Ledgerwood, RN) Monitor Mode: External US (Lara Ledgerwood, RN) FHR Baseline Rate : 125 (Lara Ledgerwood, RN) FHR Baseline Changes: No Baseline Change (Lara Ledgerwood, RN) Variability: Moderate 6-25 bpm (Lara Ledgerwood, RN) Accelerations: 15X15 (Lara Ledgerwood, RN) Decelerations: None (Lara Ledgerwood, RN) Magnesium/Antihypertensives: Magnesium Sulfate IV (Gm/hr) @ (Annotations: 2) (Lara Ledgerwood, RN) Datetime: 10/17/2016 04:25 NBP Sys/Eda/Mean (mmHg): 122 (QS system process) : 73 (QS system process) : 93 (QS system process) Pulse: 78 (QS system process) LaborFlag: Labor (QS system process) Datetime: 10/17/2016 04:10 NBP Sys/Eda/Mean (mmHg): 120 (QS system process) : 67 (QS system process) : 89 (QS system process) Pulse: 78 (QS system process) LaborFlag: Labor (QS system process) Datetime: 10/17/2016 04:00 Monitor Mode: External (Lara Ledgerwood, RN) Frequency (min): none (Lara Ledgerwood, RN) Resting Tone (Palpate): Relaxed (Lara Ledgerwood, RN) Monitor Mode: External US (Lraa Ledgerwood, RN) FHR Baseline Rate : 125 (Lara Ledgerwood, RN) FHR Baseline Changes: No Baseline Change (Lara Ledgerwood, RN) Variability: Moderate 6-25 bpm (Lara Ledgerwood, RN) Accelerations: 15X15 (Lara Ledgerwood, RN) Decelerations: None (Lara Ledgerwood, RN) Level of Consciousness: Fully Conscious (Lara Gilbert, RN) DTR's/Clonus: DTRs 2+; No Clonus (Lara Gilbert, RN) Headache: Denies (Lara Gilbert, RN) Breath Sounds, Left: Clear and Equal (Lara Gilbert, RN) Breath Sounds, Right: Clear and Equal (Lara Nolascogerbrandon, RN) Nausea/Vomiting: Denies (Lara Gilbert, RN) RUQ Epigastric Pain: Denies (Lara Gilbert, RN) Magnesium/Antihypertensives: Magnesium Sulfate IV (Gm/hr) @ (Annotations: 2) (Lara Gilbert, RN) Datetime: 10/17/2016 03:55 NBP Sys/Eda/Mean (mmHg): 118 (QS system process) : 67 (QS system process) : 87 (QS system process) Pulse: 75 (QS system process) LaborFlag: Labor (QS system process) Datetime: 10/17/2016 03:40 NBP Sys/Eda/Mean (mmHg): 115 (QS system process) : 69 (QS system process) : 87 (QS system process) Pulse: 75 (QS system process) LaborFlag: Labor (QS system process) Datetime: 10/17/2016 03:30 Monitor Mode: External (Lara Ledgerwood, RN) Frequency (min): none (Lara Ledgerwood, RN) Resting Tone (Palpate): Relaxed (Lara Ledgerwood, RN) Monitor Mode: External US (Lara Ledgerwood, RN) FHR Baseline Rate : 120 (Lara Ledgerwood, RN) FHR Baseline Changes: No Baseline Change (Lara Ledgerwood, RN) Variability: Moderate 6-25 bpm (Lara Ledgerwood, RN) Accelerations: 15X15 (Lara Ledgerwood, RN) Decelerations: None (Lara Ledgerwood, RN) Magnesium/Antihypertensives: Magnesium Sulfate IV (Gm/hr) @ (Annotations: 2) (Lara Ledgerwood, RN) Datetime: 10/17/2016 03:25 NBP Sys/Eda/Mean (mmHg): 124 (QS system process) : 74 (QS system process) : 94 (QS system process) Pulse: 80 (QS system process) LaborFlag: Labor (QS system process) Datetime: 10/17/2016 03:10 NBP Sys/Eda/Mean (mmHg): 121 (QS system process) : 73 (QS system process) : 92 (QS system process) Pulse: 81 (QS system process) LaborFlag: Labor (QS system process) Datetime: 10/17/2016 03:00 Monitor Mode: External (Lara Ledgerwood, RN) Frequency (min): none (Lara Ledgerwood, RN) Resting Tone (Palpate): Relaxed (Lara Ledgerwood, RN) Monitor Mode: External US (Lara Ledgerwood, RN) FHR Baseline Rate : 120 (Lara Ledgerwood, RN) FHR Baseline Changes: No Baseline Change (Lara Ledgerwood, RN) Variability: Minimal - Undetectable to <=5 bpm (Lara Ledgerwood, RN) Accelerations: None (Lara Ledgerwood, RN) Decelerations: None (Lara Ledgerwood, RN) Level of Consciousness: Fully Conscious (Lara Gilbert RN) DTR's/Clonus: DTRs 2+; No Clonus (Lara Gilbert RN) Headache: Denies (Lara Gilbert RN) Breath Sounds, Right: Clear and Equal (Lara Gilbert RN) Nausea/Vomiting: Denies (Lara Gilbert RN) RUQ Epigastric Pain: Denies (Lara Gilbert RN) Magnesium/Antihypertensives: Magnesium Sulfate IV (Gm/hr) @ (Annotations: 2) (Lara Gilbert RN) Datetime: 10/17/2016 02:55 NBP Sys/Eda/Mean (mmHg): 116 (QS system process) : 68 (QS system process) : 87 (QS system process) Pulse: 77 (QS system process) LaborFlag: Labor (QS system process) Datetime: 10/17/2016 02:40 NBP Sys/Eda/Mean (mmHg): 119 (QS system process) : 70 (QS system process) : 89 (QS system process) Pulse: 80 (QS system process) Temperature (F): 97.8 (Lara Ledgerwood, RN) Temperature (C): 36.6 (QS system process) Temperature Route: Oral (Lara Ledgerwood, RN) LaborFlag: Labor (QS system process) Datetime: 10/17/2016 02:30 Monitor Mode: External (Lara Ledgerwood, RN) Frequency (min): none (Lara Ledgerwood, RN) Resting Tone (Palpate): Non Relaxed (Lara Ledgerwood, RN) Monitor Mode: External US (Lara Ledgerwood, RN) FHR Baseline Rate : 125 (Lara Ledgerwood, RN) FHR Baseline Changes: No Baseline Change (Lara Ledgerwood, RN) Variability: Moderate 6-25 bpm (Lara Ledgerwood, RN) Accelerations: 15X15 (Lara Ledgerwood, RN) Decelerations: None (Lara Ledgerwood, RN) Magnesium/Antihypertensives: Magnesium Sulfate IV (Gm/hr) @ (Annotations: 2) (Lara Ledgerwood, RN) Datetime: 10/17/2016 02:25 NBP Sys/Eda/Mean (mmHg): 113 (QS system process) : 69 (QS system process) : 85 (QS system process) Pulse: 73 (QS system process) LaborFlag: Labor (QS system process) Datetime: 10/17/2016 02:10 NBP Sys/Eda/Mean (mmHg): 111 (QS system process) : 73 (QS system process) : 86 (QS system process) Pulse: 71 (QS system process) LaborFlag: Labor (QS system process) Datetime: 10/17/2016 02:00 Monitor Mode: External (Lara Ledgerwood, RN) Frequency (min): none (Lara Ledgerwood, RN) Resting Tone (Palpate): Relaxed (Lara Ledgerwood, RN) Monitor Mode: External US (Lara Ledgerwood, RN) FHR Baseline Rate : 120 (Lara Ledgerwood, RN) FHR Baseline Changes: No Baseline Change (Laar Ledgerwood, RN) Variability: Moderate 6-25 bpm (Lara Ledgerwood, RN) Accelerations: 15X15 (Lara Ledgerwood, RN) Decelerations: None (Lara Gilbert, RN) Level of Consciousness: Fully Conscious (Lara Gilbert, RN) DTR's/Clonus: DTRs 2+; No Clonus (Lara Gilbert, RN) Headache: Denies (Lara Gilbert, RN) Breath Sounds, Left: Clear and Equal (Lara Gilbert, RN) Breath Sounds, Right: Clear and Equal (Lara Gilbert, RN) Nausea/Vomiting: Denies (Lara Gilbert RN) RUQ Epigastric Pain: Denies (Lara Gilbert, RN) Magnesium/Antihypertensives: Magnesium Sulfate IV (Gm/hr) @ (Annotations: 2) (Lara Gilbert RN) Datetime: 10/17/2016 01:55 NBP Sys/Eda/Mean (mmHg): 115 (QS system process) : 78 (QS system process) : 92 (QS system process) Pulse: 75 (QS system process) LaborFlag: Labor (QS system process) Datetime: 10/17/2016 01:40 NBP Sys/Eda/Mean (mmHg): 115 (QS system process) : 69 (QS system process) : 87 (QS system process) Pulse: 73 (QS system process) LaborFlag: Labor (QS system process) Datetime: 10/17/2016 01:30 Monitor Mode: External (Lara Ledgerwood, RN) Frequency (min): none (Lara Ledgerwood, RN) Resting Tone (Palpate): Relaxed (Lara Ledgerwood, RN) Monitor Mode: External US (Lara Ledgerwood, RN) FHR Baseline Rate : 120 (Lara Ledgerwood, RN) FHR Baseline Changes: No Baseline Change (Lara Ledgerwood, RN) Variability: Moderate 6-25 bpm (Lara Ledgerwood, RN) Accelerations: 15X15 (Lara Ledgerwood, RN) Decelerations: None (Lara Ledgerwood, RN) Magnesium/Antihypertensives: Magnesium Sulfate IV (Gm/hr) @ (Annotations: 2) (Lara Ledgerwood, RN) Datetime: 10/17/2016 01:25 NBP Sys/Eda/Mean (mmHg): 116 (QS system process) : 69 (QS system process) : 88 (QS system process) Pulse: 73 (QS system process) LaborFlag: Labor (QS system process) Datetime: 10/17/2016 01:10 NBP Sys/Eda/Mean (mmHg): 117 (QS system process) : 72 (QS system process) : 89 (QS system process) Pulse: 77 (QS system process) LaborFlag: Labor (QS system process) Datetime: 10/17/2016 01:00 Monitor Mode: External (Lara Ledgerwood, RN) Frequency (min): none (Lara Ledgerwood, RN) Resting Tone (Palpate): Relaxed (Lara Ledgerwood, RN) Monitor Mode: External US (Lara Ledgerwood, RN) FHR Baseline Rate : 120 (Lara Ledgerwood, RN) FHR Baseline Changes: No Baseline Change (Lara Ledgerwood, RN) Variability: Moderate 6-25 bpm (Lara Ledgerwood, RN) Accelerations: 15X15 (Lara Ledgerwood, RN) Decelerations: None (Lara Ledgerwood, RN) Level of Consciousness: Fully Conscious (Lara Gilbert RN) DTR's/Clonus: DTRs 2+; No Clonus (Lara Gilbert RN) Headache: Denies (Lara Gilbert RN) Breath Sounds, Left: Clear and Equal (Lara Gilbert RN) Breath Sounds, Right: Clear and Equal (Lara Gilbert RN) Nausea/Vomiting: Denies (Lara Gilbert RN) RUQ Epigastric Pain: Denies (Lara Gilbert RN) Magnesium/Antihypertensives: Magnesium Sulfate IV (Gm/hr) @ (Annotations: 2) (Lara Gilbert RN) Antibiotics: Penicillin IV (Units) @ [id number] (Lara Gilbert RN) Datetime: 10/17/2016 00:55 NBP Sys/Eda/Mean (mmHg): 117 (QS system process) : 70 (QS system process) : 88 (QS system process) Pulse: 71 (QS system process) LaborFlag: Labor (QS system process) Datetime: 10/17/2016 00:40 NBP Sys/Eda/Mean (mmHg): 119 (QS system process) : 70 (QS system process) : 91 (QS system process) Pulse: 80 (QS system process) LaborFlag: Labor (QS system process) Datetime: 10/17/2016 00:30 Monitor Mode: External (Lara Ledgerwood, RN) Frequency (min): none (Lara Ledgerwood, RN) Resting Tone (Palpate): Relaxed (Lara Ledgerwood, RN) Monitor Mode: External US (Lara Ledgerwood, RN) FHR Baseline Rate : 120 (Lara Ledgerwood, RN) FHR Baseline Changes: No Baseline Change (Lara Ledgerwood, RN) Variability: Moderate 6-25 bpm (Lara Ledgerwood, RN) Accelerations: 15X15 (Lara Ledgerwood, RN) Decelerations: None (Lara Ledgerwood, RN) Magnesium/Antihypertensives: Magnesium Sulfate IV (Gm/hr) @ (Annotations: 2) (Lara Ledgerwood, RN) Datetime: 10/17/2016 00:25 NBP Sys/Eda/Mean (mmHg): 117 (QS system process) : 72 (QS system process) : 89 (QS system process) Pulse: 79 (QS system process) LaborFlag: Labor (QS system process) Datetime: 10/17/2016 00:10 NBP Sys/Eda/Mean (mmHg): 111 (QS system process) : 68 (QS system process) : 84 (QS system process) Pulse: 71 (QS system process) LaborFlag: Labor (QS system process) Datetime: 10/17/2016 00:00 Monitor Mode: External (Lara Ledgerwood, RN) Frequency (min): none (Lara Ledgerwood, RN) Resting Tone (Palpate): Relaxed (Lara Ledgerwood, RN) Monitor Mode: External US (Lara Ledgerwood, RN) FHR Baseline Rate : 120 (Lara Ledgerwood, RN) FHR Baseline Changes: No Baseline Change (Lara Ledgerwood, RN) Variability: Moderate 6-25 bpm (Lara Ledgerwood, RN) Accelerations: 15X15 (Lara Ledgerwood, RN) Decelerations: None (Lara Ledgerbrandon, RN) Level of Consciousness: Fully Conscious (Lara Nolascogerbrandon, RN) DTR's/Clonus: DTRs 2+; No Clonus (Lara Nolascogerbrandon, RN) Headache: Denies (Lara Nolascogerbrandon, RN) Breath Sounds, Left: Clear and Equal (Lara Nolascogerbrandon, RN) Breath Sounds, Right: Clear and Equal (Lara Nolascogerbrandon, RN) Nausea/Vomiting: Denies (Lara Gilbert, RN) RUQ Epigastric Pain: Denies (Lara Nolascogerbrandon, RN) Magnesium/Antihypertensives: Magnesium Sulfate IV (Gm/hr) @ (Annotations: 2) (Lara Gilbert, RN) Datetime: 10/16/2016 23:55 NBP Sys/Eda/Mean (mmHg): 114 (QS system process) : 71 (QS system process) : 87 (QS system process) Pulse: 72 (QS system process) LaborFlag: Labor (QS system process) Datetime: 10/16/2016 23:40 NBP Sys/Eda/Mean (mmHg): 116 (QS system process) : 74 (QS system process) : 91 (QS system process) Pulse: 67 (QS system process) LaborFlag: Labor (QS system process) Datetime: 10/16/2016 23:30 Monitor Mode: External (Lara Ledgerwood, RN) Frequency (min): none (Lara Ledgerwood, RN) Resting Tone (Palpate): Relaxed (Lara Ledgerwood, RN) Monitor Mode: External US (Lara Ledgerwood, RN) FHR Baseline Rate : 120 (Lara Ledgerwood, RN) FHR Baseline Changes: No Baseline Change (Lara Ledgerwood, RN) Variability: Moderate 6-25 bpm (Lara Ledgerwood, RN) Accelerations: 15X15 (Lara Ledgerwood, RN) Decelerations: None (Lara Ledgerwood, RN) Magnesium/Antihypertensives: Magnesium Sulfate IV (Gm/hr) @ (Annotations: 2) (Lara Ledgerwood, RN) Datetime: 10/16/2016 23:26 NBP Sys/Eda/Mean (mmHg): 125 (QS system process) : 76 (QS system process) : 96 (QS system process) Pulse: 78 (QS system process) LaborFlag: Labor (QS system process) Datetime: 10/16/2016 23:23 Analgesics/Sedatives: Ambien (mg) @ 10 (Lara Ledgerwood, RN) Datetime: 10/16/2016 23:19 Patient Position/Activity: Right Lateral (Lara Ledgerwood, RN) Datetime: 10/16/2016 23:10 NBP Sys/Eda/Mean (mmHg): 108 (QS system process) : 63 (QS system process) : 80 (QS system process) Pulse: 72 (QS system process) LaborFlag: Labor (QS system process) Datetime: 10/16/2016 23:00 Monitor Mode: External (Lara Ledgerwood, RN) Frequency (min): none (Lara Ledgerwood, RN) Resting Tone (Palpate): Relaxed (Lara Ledgerwood, RN) Monitor Mode: External US (Lara Ledgerwood, RN) FHR Baseline Rate : 120 (Lara Ledgerwood, RN) FHR Baseline Changes: No Baseline Change (Lara Ledgerwood, RN) Variability: Moderate 6-25 bpm (Lara Ledgerwood, RN) Accelerations: 15X15 (Lara Ledgerwood, RN) Decelerations: None (Lara Ledgerwood, RN) Level of Consciousness: Fully Conscious (Lara Ledgerwood, RN) DTR's/Clonus: DTRs 2+ (Lara Ledgerwood, RN) Headache: Generalized (Lara Ledgerwood, RN) Breath Sounds, Left: Clear and Equal (Lara Ledgerwood, RN) Breath Sounds, Right: Clear and Equal (Lara Ledgerwood, RN) Nausea/Vomiting: Denies (Lara Ledgerwood, RN) RUQ Epigastric Pain: Denies (Lara Ledgerwood, RN) Magnesium/Antihypertensives: Magnesium Sulfate IV (Gm/hr) @ (Annotations: 2) (Lara Ledgerwood, RN) Datetime: 10/16/2016 22:55 NBP Sys/Eda/Mean (mmHg): 112 (QS system process) : 63 (QS system process) : 83 (QS system process) Pulse: 77 (QS system process) LaborFlag: Labor (QS system process) Datetime: 10/16/2016 22:40 NBP Sys/Eda/Mean (mmHg): 109 (QS system process) : 64 (QS system process) : 82 (QS system process) Pulse: 76 (QS system process) LaborFlag: Labor (QS system process) Datetime: 10/16/2016 22:30 Monitor Mode: External (Lara Ledgerwood, RN) Frequency (min): none (Lara Ledgerwood, RN) Resting Tone (Palpate): Relaxed (Lara Ledgerwood, RN) Monitor Mode: External US (Lara Ledgerwood, RN) FHR Baseline Rate : 120 (Lara Ledgerwood, RN) FHR Baseline Changes: No Baseline Change (Lara Ledgerwood, RN) Variability: Moderate 6-25 bpm (Lara Ledgerwood, RN) Accelerations: 15X15 (Lara Ledgerwood, RN) Decelerations: None (Lara Ledgerwood, RN) Magnesium/Antihypertensives: Magnesium Sulfate IV (Gm/hr) @ (Annotations: 2) (Lara Ledgerwood, RN) Datetime: 10/16/2016 22:25 NBP Sys/Eda/Mean (mmHg): 118 (QS system process) : 64 (QS system process) : 86 (QS system process) Pulse: 82 (QS system process) LaborFlag: Labor (QS system process) Datetime: 10/16/2016 22:10 NBP Sys/Eda/Mean (mmHg): 130 (QS system process) : 90 (QS system process) : 103 (QS system process) Pulse: 81 (QS system process) LaborFlag: Labor (QS system process) Datetime: 10/16/2016 22:00 Monitor Mode: External (Lara Ledgerwood, RN) Frequency (min): none (Lara Ledgerwood, RN) Resting Tone (Palpate): Relaxed (Lara Ledgerwood, RN) Monitor Mode: External US (Lara Ledgerwood, RN) FHR Baseline Rate : 120 (Lara Ledgerwood, RN) FHR Baseline Changes: No Baseline Change (Lara Ledgerwood, RN) Variability: Moderate 6-25 bpm (Lara Ledgerwood, RN) Accelerations: 15X15 (Lara Ledgerwood, RN) Decelerations: Early (Lara Ledgerwood, RN) Level of Consciousness: Fully Conscious (Lara Ledgerwood, RN) DTR's/Clonus: DTRs 2+ (Lara Ledgerwood, RN) Headache: Generalized (Lara Ledgerwood, RN) Breath Sounds, Left: Clear and Equal (Lara Ledgerwood, RN) Breath Sounds, Right: Clear and Equal (Lara Ledgerwood, RN) Nausea/Vomiting: Denies (Lara Ledgerwood, RN) RUQ Epigastric Pain: Denies (Lara Ledgerwood, RN) Magnesium/Antihypertensives: Magnesium Sulfate IV (Gm/hr) @ (Annotations: 2) (Lara Ledgerwood, RN) Datetime: 10/16/2016 21:55 NBP Sys/Eda/Mean (mmHg): 122 (QS system process) : 82 (QS system process) : 97 (QS system process) Pulse: 74 (QS system process) LaborFlag: Labor (QS system process) Datetime: 10/16/2016 21:40 NBP Sys/Eda/Mean (mmHg): 126 (QS system process) : 85 (QS system process) : 101 (QS system process) Pulse: 75 (QS system process) LaborFlag: Labor (QS system process) Datetime: 10/16/2016 21:37 Patient Position/Activity: Left Lateral (Lara Ledgerwood, RN) Datetime: 10/16/2016 21:30 Monitor Mode: External (Lina Berto, RN) Frequency (min): 0 (Lina Berto, RN) Resting Tone (Palpate): Relaxed (Lina Berto, RN) Monitor Mode: External US (Lina Berto, RN) FHR Baseline Rate : 130 (Lina Berto, RN) FHR Baseline Changes: No Baseline Change (Lina Berto, RN) Variability: Moderate 6-25 bpm (Lina Berto, RN) Accelerations: 15X15 (Lina Berto, RN) Decelerations: None (Lina Berto, RN) Magnesium/Antihypertensives: Magnesium Sulfate IV (Gm/hr) @ (Annotations: 2) (Lara Gilbert RN) Datetime: 10/16/2016 21:25 NBP Sys/Eda/Mean (mmHg): 129 (QS system process) : 78 (QS system process) : 99 (QS system process) Pulse: 80 (QS system process) LaborFlag: Labor (QS system process) Datetime: 10/16/2016 21:10 NBP Sys/Dea/Mean (mmHg): 130 (QS system process) : 81 (QS system process) : 101 (QS system process) Pulse: 85 (QS system process) LaborFlag: Labor (QS system process) Datetime: 10/16/2016 21:00 Monitor Mode: External (Lara Nolascogerwood, RN) Frequency (min): none (Lara Ledgerwood, RN) Resting Tone (Palpate): Relaxed (Lara Ledgerwood, RN) Monitor Mode: External US (Lara Ledgerwood, RN) FHR Baseline Rate : 120 (Lara Ledgerwood, RN) FHR Baseline Changes: No Baseline Change (Lara Ledgerwood, RN) Variability: Moderate 6-25 bpm (Lara Ledgerwood, RN) Accelerations: 15X15 (Lara Ledgerwood, RN) Decelerations: None (Lara Ledgerwood, RN) Pain Scale: 3 (Lara Ledgerwood, RN) Pain Presence: Constant (Lara Ledgerwood, RN) Pain Type: Sharp (Lara Ledgerwood, RN) Pain Location: Head (Lara Ledgerwood, RN) Pain Relief Measures: Pain Medication Given (Annotations: Tylenol 650 mg given) (Lara Ledgerwood, ZEENAT) Level of Consciousness: Fully Conscious (Lara Gilbert, ZEENAT) DTR's/Clonus: DTRs 2+ (Lara Gilbert RN) Headache: Generalized (Lara Gilbert RN) Breath Sounds, Left: Clear and Equal (Lara Gilbert RN) Breath Sounds, Right: Clear and Equal (Lara Gilbert RN) Nausea/Vomiting: Denies (Lara Gilbert RN) Magnesium/Antihypertensives: Magnesium Sulfate IV (Gm/hr) @ (Annotations: 2) (Lara Gilbert RN) Analgesics/Sedatives: Tylenol (mg) @ 650 (Lara Gilbert RN) Antibiotics: Penicillin IV (Units) @ [id number] (Lara Gilbert RN) LaborFlag: Labor (QS system process) Datetime: 10/16/2016 20:55 NBP Sys/Eda/Mean (mmHg): 108 (QS system process) : 60 (QS system process) : 79 (QS system process) Pulse: 77 (QS system process) LaborFlag: Labor (QS system process) Datetime: 10/16/2016 20:40 NBP Sys/Eda/Mean (mmHg): 107 (QS system process) : 58 (QS system process) : 78 (QS system process) Pulse: 74 (QS system process) LaborFlag: Labor (QS system process) Datetime: 10/16/2016 20:30 Monitor Mode: External (Lara Ledgerwood, RN) Frequency (min): none (Lara Ledgerwood, RN) Resting Tone (Palpate): Relaxed (Lara Ledgerwood, RN) Monitor Mode: External US (Lara Ledgerwood, RN) FHR Baseline Rate : 120 (Lara Ledgerwood, RN) FHR Baseline Changes: No Baseline Change (Lara Ledgerwood, RN) Variability: Moderate 6-25 bpm (Lara Ledgerwood, RN) Accelerations: None (Lara Ledgerwood, RN) Decelerations: None (Lara Ledgerwood, RN) Magnesium/Antihypertensives: Magnesium Sulfate IV (Gm/hr) @ (Annotations: 2) (Lara Ledgerwood, RN) Datetime: 10/16/2016 20:25 NBP Sys/Eda/Mean (mmHg): 106 (QS system process) : 61 (QS system process) : 79 (QS system process) Pulse: 75 (QS system process) LaborFlag: Labor (QS system process) Datetime: 10/16/2016 20:10 NBP Sys/Eda/Mean (mmHg): 109 (QS system process) : 64 (QS system process) : 80 (QS system process) Pulse: 74 (QS system process) LaborFlag: Labor (QS system process) Datetime: 10/16/2016 20:00 Monitor Mode: External (Lara Ledgerwood, RN) Frequency (min): none (Lara Ledgerwood, RN) Resting Tone (Palpate): Relaxed (Lara Ledgerwood, RN) Monitor Mode: External US (Lara Ledgerwood, RN) FHR Baseline Rate : 115 (Lara Ledgerwood, RN) FHR Baseline Changes: No Baseline Change (Lara Ledgerwood, RN) Variability: Moderate 6-25 bpm (Lara Ledgerwood, RN) Accelerations: 10X10 (Lara Ledgerwood, RN) Decelerations: None (Lara Gilbert RN) Level of Consciousness: Fully Conscious (Lara Gilbert RN) DTR's/Clonus: DTRs 2+; No Clonus (Lara Gilbert RN) Headache: Temporal (Lara Gilbert RN) Breath Sounds, Left: Clear and Equal (Lara Gilbert RN) Breath Sounds, Right: Clear and Equal (Lara Gilbert RN) Nausea/Vomiting: Denies (Lara Gilbert RN) RUQ Epigastric Pain: Denies (Lara Gilbert RN) Magnesium/Antihypertensives: Magnesium Sulfate IV (Gm/hr) @ (Annotations: 2) (Lara Gilbert RN)
[2016-10-17] MEDS: AZITHROMYCIN 250 MG TABLET PO SCH (10:26)
--- NOTE | 2016-10-17 10:46 | L&D Admission Assessment ---
LD ADM ASMT Datetime Report Generated by CPN: 10/17/2016 10:45 PATIENT ASSESSMENT Assessment Type: Ongoing Assessment (10/17/2016 08:27:Francine Ramos RN) Assessment Type: Ongoing Assessment (10/16/2016 19:25:Lara Gilbert RN) Assessment Type: Ongoing Assessment (10/16/2016 06:00:Filemon Ribeiro RN) Assessment Type: Admission Assessment (10/16/2016 05:00:Filemon Ribeiro RN) Assessment Type: Admission Assessment (10/16/2016 03:00:Filemon Ribeiro RN) WEIGHT Weight (lb): 183 (10/16/2016 02:38:QS system process) Weight (kg): 83.2 (10/16/2016 02:38:QS system process) PAIN Pain Scale: 3 (10/16/2016 21:00:Lara Gilbert RN) Pain Scale: 3 (10/16/2016 19:25:Lara Gilbert RN) Pain Scale: 1 (10/16/2016 11:30:Zamzam Bellavance, RNC) Pain Scale: 4 (10/16/2016 11:00:Zamzam Bellavance, RNC) Pain Scale: 0 (10/16/2016 10:30:Zamzam Bellavance, RNC) Pain Scale: 0 (10/16/2016 10:00:Zamzam Bellavance, RNC) Pain Scale: 0 (10/16/2016 09:30:Zamzam Bellavance, RNC) Pain Scale: 0 (10/16/2016 09:00:Zamzam Bellavance, RNC) Pain Scale: 0 (10/16/2016 08:30:Zamzam Bellavance, RNC) Pain Scale: 0 (10/16/2016 08:00:Zamzam Bellavance, RNC) Pain Scale: 0 (10/16/2016 07:30:Zamzam Bellavance, RNC) Pain Scale: 0 (10/16/2016 05:00:Filemon Ribeiro RN) Pain Scale: 2 (10/16/2016 03:00:Filemon Ribeiro RN) Pain Presence: Constant (10/16/2016 21:00:Lara Gilbert RN) Pain Presence: Constant (10/16/2016 19:25:Laar Gilbert RN) Pain Presence: Constant (10/16/2016 11:30:MICHELLE King) Pain Presence: Constant (10/16/2016 11:00:MICHELLE King) Pain Presence: None/Denies (10/16/2016 05:00:Filemon Ribeiro RN) Pain Presence: Intermittent (10/16/2016 03:00:Filemon Riberio RN) Pain Type: Sharp (10/16/2016 21:00:Lara Gilbert RN) Pain Type: Sharp (10/16/2016 19:25:Lara Gilbert RN) Pain Type: Ache (10/16/2016 11:30:MICHELLE King) Pain Type: Ache (10/16/2016 11:00:MICHELLE King) Pain Type: N/A (10/16/2016 05:00:Filemon Ribeiro RN) Pain Type: Cramping; Contraction (10/16/2016 03:00:Filemon Ribeiro RN) Pain Location: Head (10/16/2016 21:00:Lara Gilbert RN) Pain Location: Head (10/16/2016 19:25:Lara Gilbert RN) Pain Location: Head (10/16/2016 11:30:MICHELLE King) Pain Location: Head (10/16/2016 11:00:MICHELLE King) Pain Location: Abdomen; Back (10/16/2016 03:00:Filemon Ribeiro RN) Pain Goal: 0 (10/16/2016 11:30:MICHELLE King) Pain Goal: 0 (10/16/2016 11:00:MICHELLE King) Pain Goal: 0 (10/16/2016 03:00:Filemon Ribeiro RN) Pain Related to Contraction: Yes (10/16/2016 03:00:Filemon Ribeiro RN) Pain Comments: sleeping (10/16/2016 17:00:MICHELLE King) Pain Comments: nubain given for headache and patient states relief (10/16/2016 16:30:MICHELLE King) CONTRACTIONS Frequency (min): Pt denies (10/17/2016 09:00:Francine Ramos RN) Frequency (min): No ctxs noted/pt denies (10/17/2016 08:30:Francine Ramos RN) Frequency (min): No ctxs noted (10/17/2016 08:00:Francine Ramos RN) Frequency (min): No ctxs noted (10/17/2016 07:30:Francine Ramos RN) Frequency (min): none (10/17/2016 07:00:Lara Gilbert RN) Frequency (min): none (10/17/2016 06:30:Lara Gilbert RN) Frequency (min): none (10/17/2016 06:00:Lara Gilbert RN) Frequency (min): none (10/17/2016 05:30:Lara Gilbert RN) Frequency (min): none (10/17/2016 05:00:Lara Gilbert RN) Frequency (min): none (10/17/2016 04:30:Lara Gilbert RN) Frequency (min): none (10/17/2016 04:00:Lara Gilbert RN) Frequency (min): none (10/17/2016 03:30:Lara Gilbert RN) Frequency (min): none (10/17/2016 03:00:Lara [place], RN) Frequency (min): none (10/17/2016 02:30:Lara [place], RN) Frequency (min): none (10/17/2016 02:00:Lara [place], RN) Frequency (min): none (10/17/2016 01:30:Lara [place], RN) Frequency (min): none (10/17/2016 01:00:Lara [place], RN) Frequency (min): none (10/17/2016 00:30:Lara [place], RN) Frequency (min): none (10/17/2016 00:00:Lara [place], RN) Frequency (min): none (10/16/2016 23:30:Lara [place], RN) Frequency (min): none (10/16/2016 23:00:Lara [place], RN) Frequency (min): none (10/16/2016 22:30:Lara [place], RN) Frequency (min): none (10/16/2016 22:00:Lara [place], RN) Frequency (min): 0 (10/16/2016 21:30:Lina Berto, RN) Frequency (min): none (10/16/2016 21:00:Lara [place], RN) Frequency (min): none (10/16/2016 20:30:Lara [place], RN) Frequency (min): none (10/16/2016 20:00:Lara [place], RN) Frequency (min): none (10/16/2016 19:30:Lara [place], RN) Frequency (min): occassional (10/16/2016 19:00:Zamzam Bellavance, RNC) Frequency (min): occassional (10/16/2016 18:30:Zamzam Bellavance, RNC) Frequency (min): occassional (10/16/2016 18:00:Zamzam Bellavance, RNC) Frequency (min): occassional (10/16/2016 17:30:Zamzam Bellavance, RNC) Frequency (min): occassional (10/16/2016 17:00:Zamzam Bellavance, RNC) Frequency (min): occassional (10/16/2016 16:30:Zamzam Bellavance, RNC) Frequency (min): occassional (10/16/2016 16:00:Zamzam Bellavance, RNC) Frequency (min): occassional (10/16/2016 15:30:Zamzam Bellavance, RNC) Frequency (min): occassional (10/16/2016 15:00:Zamzam Bellavance, RNC) Frequency (min): occassional (10/16/2016 14:30:Zamzam Bellavance, RNC) Frequency (min): occassional (10/16/2016 14:00:Zamzam Bellavance, RNC) Frequency (min): occassional (10/16/2016 13:37:Zamzam Bellavance, RNC) Frequency (min): occassional (10/16/2016 13:00:Zamzam Bellavance, RNC) Frequency (min): occassional (10/16/2016 12:30:Zamzam Bellavance, RNC) Frequency (min): occassional (10/16/2016 12:00:Zamzam Bellavance, RNC) Frequency (min): 9-12 (10/16/2016 11:30:Zamzam Bellavance, RNC) Frequency (min): 9-12 (10/16/2016 11:00:Zamzam Bellavance, RNC) Frequency (min): occassional (10/16/2016 10:30:Zamzam Bellavance, RNC) Frequency (min): occassional (10/16/2016 10:00:Zamzam Bellavance, RNC) Frequency (min): occassional (10/16/2016 09:30:Zamzam Bellavance, RNC) Frequency (min): occassional (10/16/2016 09:00:Zamzam Bellavance, RNC) Frequency (min): occassional (10/16/2016 08:30:Zamzam Bellavance, RNC) Frequency (min): occassional (10/16/2016 08:00:Zamzam Bellavance, RNC) Frequency (min): occassional (10/16/2016 07:30:Zamzam Bellavance, RNC) Frequency (min): None (10/16/2016 07:00:Filemon Gema, RN) Frequency (min): None (10/16/2016 06:45:Filemon Gema, RN) Frequency (min): None (10/16/2016 06:30:Filemon Gema, RN) Frequency (min): None (10/16/2016 06:15:Filemon Gema, RN) Frequency (min): None (10/16/2016 06:00:Filemon Gema, RN) Frequency (min): None (10/16/2016 05:45:Filemon Gema, RN) Frequency (min): Unable to determine (10/16/2016 05:30:Filemon Gema, RN) Frequency (min): x1 (10/16/2016 05:15:Crystal Kay, RN) Frequency (min): x1 (10/16/2016 04:30:Crystal [place], RN) Frequency (min): x1 (10/16/2016 04:00:Crystal [place], RN) Frequency (min): x2 (10/16/2016 03:45:Crystal [place], RN) Frequency (min): 11 (10/16/2016 03:30:Crystal [place], RN) Frequency (min): 6 (10/16/2016 03:15:Crystal [place], RN) Duration (sec): 40 (10/16/2016 19:00:Zamzam Bellavance, RNC) Duration (sec): 40 (10/16/2016 18:30:Zamzam Bellavance, RNC) Duration (sec): 40 (10/16/2016 18:00:Zamzam Bellavance, RNC) Duration (sec): 40 (10/16/2016 17:30:Zamzam Bellavance, RNC) Duration (sec): 40 (10/16/2016 17:00:Zamzam Bellavance, RNC) Duration (sec): 40 (10/16/2016 16:30:Zamzam Bellavance, RNC) Duration (sec): 40 (10/16/2016 16:00:Zamzam Bellavance, RNC) Duration (sec): 40 (10/16/2016 15:30:Zamzam Bellavance, RNC) Duration (sec): 40 (10/16/2016 15:00:Zamzam Bellavance, RNC) Duration (sec): 40 (10/16/2016 14:30:Zamzam Bellavance, RNC) Duration (sec): 40 (10/16/2016 14:00:Zamzam Bellavance, RNC) Duration (sec): 40 (10/16/2016 13:37:Zamzam Bellavance, RNC) Duration (sec): 40 (10/16/2016 13:00:Zamzam Bellavance, RNC) Duration (sec): 40 (10/16/2016 12:30:Zamzam Bellavance, RNC) Duration (sec): 40 (10/16/2016 12:00:Zamzam Bellavance, RNC) Duration (sec): 50 (10/16/2016 11:30:Zamzam Bellavance, RNC) Duration (sec): 50 (10/16/2016 11:00:Zamzam Bellavance, RNC) Duration (sec): 100 (10/16/2016 05:15:Mary Villanueva RN) Duration (sec): 100 (10/16/2016 04:00:Mary Villanueva RN) Quality: Mild (10/17/2016 09:00:Francine Ramos RN) Quality: Mild (10/17/2016 08:30:Francine Ramos RN) Quality: Mild (10/17/2016 08:00:Francine Ramos RN) Quality: Mild (10/17/2016 07:30:Francine Ramos RN) Quality: Mild (10/16/2016 19:00:Zamzam Bellavance, RNC) Quality: Mild (10/16/2016 18:30:Zamzam Bellavance, RNC) Quality: Mild (10/16/2016 18:00:Zamzam Bellavance, RNC) Quality: Mild (10/16/2016 17:30:Zamzam Bellavance, RNC) Quality: Mild (10/16/2016 17:00:Zamzam Bellavance, RNC) Quality: Mild (10/16/2016 16:30:Zamzam Bellavance, RNC) Quality: Mild (10/16/2016 16:00:Zamzam Bellavance, RNC) Quality: Mild (10/16/2016 15:30:Zamzam Bellavance, RNC) Quality: Mild (10/16/2016 15:00:Zamzam Bellavance, RNC) Quality: Mild (10/16/2016 14:30:Zamzam Bellavance, RNC) Quality: Mild (10/16/2016 14:00:Zamzam Bellavance, RNC) Quality: Mild (10/16/2016 13:37:Zamzam Bellavance, RNC) Quality: Mild (10/16/2016 13:00:Zamzam Bellavance, RNC) Quality: Mild (10/16/2016 12:30:Zamzam Bellavance, RNC) Quality: Mild (10/16/2016 12:00:Zamzam Bellavance, RNC) Quality: Mild (10/16/2016 11:30:Zamzam Bellavance, RNC) Quality: Mild (10/16/2016 11:00:Zamzam Bellavance, RNC) Quality: Mild/Moderate (10/16/2016 04:00:Crystal Kay, RN) Quality: Mild/Moderate (10/16/2016 03:45:Crystal Kay, RN) Quality: Mild/Moderate (10/16/2016 03:30:Crystal [place], RN) Pattern: Normal: <= 5 Contractions in 10 Minutes (10/16/2016 19:00:Zamzam Bellavance, RNC) Pattern: Normal: <= 5 Contractions in 10 Minutes (10/16/2016 18:30:Zamzam Bellavance, RNC) Pattern: Normal: <= 5 Contractions in 10 Minutes (10/16/2016 18:00:Zamzam Bellavance, RNC) Pattern: Normal: <= 5 Contractions in 10 Minutes (10/16/2016 17:30:Zamzam Bellavance, RNC) Pattern: Normal: <= 5 Contractions in 10 Minutes (10/16/2016 17:00:Zamzam Bellavance, RNC) Pattern: Normal: <= 5 Contractions in 10 Minutes (10/16/2016 16:30:Zamzam Bellavance, RNC) Pattern: Normal: <= 5 Contractions in 10 Minutes (10/16/2016 16:00:Zamzam Bellavance, RNC) Pattern: Normal: <= 5 Contractions in 10 Minutes (10/16/2016 15:30:Zamzam Bellavance, RNC) Pattern: Normal: <= 5 Contractions in 10 Minutes (10/16/2016 15:00:Zamzam Bellavance, RNC) Pattern: Normal: <= 5 Contractions in 10 Minutes (10/16/2016 14:30:Zamzam Bellavance, RNC) Pattern: Normal: <= 5 Contractions in 10 Minutes (10/16/2016 14:00:Zamzam Bellavance, RNC) Pattern: Normal: <= 5 Contractions in 10 Minutes (10/16/2016 13:37:Zamzam Bellavance, RNC) Pattern: Normal: <= 5 Contractions in 10 Minutes (10/16/2016 13:00:Zamzam Bellavance, RNC) Pattern: Normal: <= 5 Contractions in 10 Minutes (10/16/2016 12:30:Zamzam Bellavance, RNC) Pattern: Normal: <= 5 Contractions in 10 Minutes (10/16/2016 12:00:Zamzam Bellavance, RNC) Pattern: Normal: <= 5 Contractions in 10 Minutes (10/16/2016 11:30:Zamzam Bellavance, RNC) Pattern: Normal: <= 5 Contractions in 10 Minutes (10/16/2016 11:00:Zamzam Bellavance, RNC) Resting Tone [place]: Relaxed (10/17/2016 09:00:Francine Ramos RN) Resting Tone [place]: Relaxed (10/17/2016 08:30:Francine Ramos RN) Resting Tone [place]: Relaxed (10/17/2016 08:00:Francine Ramos RN) Resting Tone [place]: Relaxed (10/17/2016 07:30:Francine [place], RN) Resting Tone [place]: Relaxed (10/17/2016 07:00:Lara Ofelia, RN) Resting Tone [place]: Relaxed (10/17/2016 06:30:Lara Ofelia, RN) Resting Tone [place]: Relaxed (10/17/2016 06:00:Lara Ofelia, RN) Resting Tone [place]: Relaxed (10/17/2016 05:30:Lara Ofelia, RN) Resting Tone [place]: Relaxed (10/17/2016 05:00:Lara Ofelia, RN) Resting Tone [place]: Relaxed (10/17/2016 04:30:Lara Ofelia, RN) Resting Tone [place]: Relaxed (10/17/2016 04:00:Lara Ofelia, RN) Resting Tone [place]: Relaxed (10/17/2016 03:30:Lara Ofelia, RN) Resting Tone [place]: Relaxed (10/17/2016 03:00:Lara Ofelia, RN) Resting Tone [place]: Non Relaxed (10/17/2016 02:30:Lara Ofelia, RN) Resting Tone [place]: Relaxed (10/17/2016 02:00:Lara Ofelia, RN) Resting Tone [place]: Relaxed (10/17/2016 01:30:Lara Ofelia, RN) Resting Tone [place]: Relaxed (10/17/2016 01:00:Lara Ofelia, RN) Resting Tone [place]: Relaxed (10/17/2016 00:30:Lara Ofelia, RN) Resting Tone [place]: Relaxed (10/17/2016 00:00:Lara Ofelia, RN) Resting Tone [place]: Relaxed (10/16/2016 23:30:Lara Ofelia, RN) Resting Tone [place]: Relaxed (10/16/2016 23:00:Lara Ofelia, RN) Resting Tone [place]: Relaxed (10/16/2016 22:30:Lara Ofelia, RN) Resting Tone [place]: Relaxed (10/16/2016 22:00:Lara Ofelia, RN) Resting Tone [place]: Relaxed (10/16/2016 21:30:Lina Thomson RN) Resting Tone [place]: Relaxed (10/16/2016 21:00:Lara Gilbert, RN) Resting Tone [place]: Relaxed (10/16/2016 20:30:Lara Gilbert, RN) Resting Tone [place]: Relaxed (10/16/2016 20:00:Lara Gilbert, RN) Resting Tone [place]: Relaxed (10/16/2016 19:30:Lara Gilbert, RN) Resting Tone [place]: Relaxed (10/16/2016 19:00:Zamzam Bellavance, RNC) Resting Tone [place]: Relaxed (10/16/2016 18:30:Zamzam Bellavance, RNC) Resting Tone [place]: Relaxed (10/16/2016 18:00:Zamzam Bellavance, RNC) Resting Tone [place]: Relaxed (10/16/2016 17:30:Zamzam Bellavance, RNC) Resting Tone [place]: Relaxed (10/16/2016 17:00:Zamzam Bellavance, RNC) Resting Tone [place]: Relaxed (10/16/2016 16:30:Zamzam Bellavance, RNC) Resting Tone [place]: Relaxed (10/16/2016 16:00:Zamzam Bellavance, RNC) Resting Tone [place]: Relaxed (10/16/2016 15:30:Zamzam Bellavance, RNC) Resting Tone [place]: Relaxed (10/16/2016 15:00:Zamzam Bellavance, RNC) Resting Tone [place]: Relaxed (10/16/2016 14:30:Zamzam Bellavance, RNC) Resting Tone [place]: Relaxed (10/16/2016 14:00:Zamzam Bellavance, RNC) Resting Tone [place]: Relaxed (10/16/2016 13:37:Zamzam Bellavance, RNC) Resting Tone [place]: Relaxed (10/16/2016 13:00:Zamzam Bellavance, RNC) Resting Tone [place]: Relaxed (10/16/2016 12:30:Zamzam Bellavance, RNC) Resting Tone [place]: Relaxed (10/16/2016 12:00:Zamzam Bellavance, RNC) Resting Tone [place]: Relaxed (10/16/2016 11:30:Zamzam Bellavance, RNC) Resting Tone [place]: Relaxed (10/16/2016 11:00:Zamzam Bellavance, RNC) Resting Tone [place]: Relaxed (10/16/2016 10:30:Zamzam Bellavance, RNC) Resting Tone [place]: Relaxed (10/16/2016 10:00:Zamzam Bellavance, RNC) Resting Tone [place]: Relaxed (10/16/2016 09:30:Zamzam Bellavance, RNC) Resting Tone [place]: Relaxed (10/16/2016 09:00:Zamzam Bellavance, RNC) Resting Tone [place]: Relaxed (10/16/2016 08:30:Zamzam Bellavance, RNC) Resting Tone [place]: Relaxed (10/16/2016 08:00:Zamzam Bellavance, RNC) Resting Tone [place]: Relaxed (10/16/2016 07:30:Zamzam Bellavance, RNC) Resting Tone [place]: Relaxed (10/16/2016 06:45:Filemon Ribeior RN) Resting Tone [place]: Relaxed (10/16/2016 05:30:Filemon Ribeiro RN) Resting Tone [place]: Relaxed (10/16/2016 05:15:Mary Villanueva RN) Resting Tone [place]: Relaxed (10/16/2016 04:00:Mary Villanueva RN) Resting Tone [place]: Relaxed (10/16/2016 03:45:Mary Villanueva RN) Resting Tone [place]: Relaxed (10/16/2016 03:30:Mary Villanueva RN) Resting Tone [place]: Relaxed (10/16/2016 03:15:Mary Villanueva RN) Contraction Comments: no contractions noted during palpation, pt reports of no contraction feeling (10/16/2016 19:30:Lara Gilbert RN) Contraction Comments: Pt denies feeling any contractions (10/16/2016 05:30:Filemon Ribeiro RN) NEURO Level of Consciousness: Fully Conscious (10/17/2016 08:27:Francine Ramos RN) Level of Consciousness: Fully Conscious (10/17/2016 07:00:Lara Gilbert RN) Level of Consciousness: Fully Conscious (10/17/2016 06:00:Lara Gilbert RN) Level of Consciousness: Fully Conscious (10/17/2016 05:00:Lara Gilbert RN) Level of Consciousness: Fully Conscious (10/17/2016 04:00:Lara Gilbert RN) Level of Consciousness: Fully Conscious (10/17/2016 03:00:Lara Gilbert RN) Level of Consciousness: Fully Conscious (10/17/2016 02:00:Lara Gilbert RN) Level of Consciousness: Fully Conscious (10/17/2016 01:00:Lara Gilbert RN) Level of Consciousness: Fully Conscious (10/17/2016 00:00:Lara Gilbert RN) Level of Consciousness: Fully Conscious (10/16/2016 23:00:Lara Gilbert RN) Level of Consciousness: Fully Conscious (10/16/2016 22:00:Lara Gilbert RN) Level of Consciousness: Fully Conscious (10/16/2016 21:00:Lara Gilbert RN) Level of Consciousness: Fully Conscious (10/16/2016 20:00:Lara Gilbert RN) Level of Consciousness: Fully Conscious (10/16/2016 19:25:Lara Gilbert RN) Level of Consciousness: Fully Conscious (10/16/2016 19:00:MICHELLE King) Level of Consciousness: Fully Conscious (10/16/2016 18:30:MICHELLE King) Level of Consciousness: Fully Conscious (10/16/2016 18:00:MICHELLE King) Level of Consciousness: Fully Conscious (10/16/2016 17:30:Zamzam Bellavance, RNC) Level of Consciousness: Fully Conscious (10/16/2016 17:00:Zamzam Bellavance, RNC) Level of Consciousness: Fully Conscious (10/16/2016 16:30:Zamzam Bellavance, RNC) Level of Consciousness: Fully Conscious (10/16/2016 10:30:Zamzam Bellavance, RNC) Level of Consciousness: Fully Conscious (10/16/2016 10:00:Zamzam Bellavance, RNC) Level of Consciousness: Fully Conscious (10/16/2016 09:30:Zamzam Bellavance, RNC) Level of Consciousness: Fully Conscious (10/16/2016 09:00:Zamzam Bellavance, RNC) Level of Consciousness: Fully Conscious (10/16/2016 08:30:Zamzam Bellavance, RNC) Level of Consciousness: Fully Conscious (10/16/2016 08:00:Zamzam Bellavance, RNC) Level of Consciousness: Fully Conscious (10/16/2016 07:30:Zamzam Bellavance, RNC) Level of Consciousness: Fully Conscious (10/16/2016 06:00:Filemon Ribeiro RN) Level of Consciousness: Fully Conscious (10/16/2016 05:00:Filemon Ribeiro RN) Level of Consciousness: Fully Conscious (10/16/2016 03:00:Filemon Ribeiro RN) DTR's/Clonus: DTRs 2+; No Clonus (10/17/2016 08:27:Francine Ramos RN) DTR's/Clonus: DTRs 2+; No Clonus (10/17/2016 07:00:Lara Gilbert RN) DTR's/Clonus: DTRs 2+; No Clonus (10/17/2016 06:00:Lara Gilbert RN) DTR's/Clonus: DTRs 2+; No Clonus (10/17/2016 05:00:Lara Gilbert RN) DTR's/Clonus: DTRs 2+; No Clonus (10/17/2016 04:00:Lara Gilbert RN) DTR's/Clonus: DTRs 2+; No Clonus (10/17/2016 03:00:Lara Gilbert RN) DTR's/Clonus: DTRs 2+; No Clonus (10/17/2016 02:00:Lara Gilbert RN) DTR's/Clonus: DTRs 2+; No Clonus (10/17/2016 01:00:Lara Gilbert RN) DTR's/Clonus: DTRs 2+; No Clonus (10/17/2016 00:00:Lara Gilbert RN) DTR's/Clonus: DTRs 2+ (10/16/2016 23:00:Lara Gilbert RN) DTR's/Clonus: DTRs 2+ (10/16/2016 22:00:Lara Gilbert RN) DTR's/Clonus: DTRs 2+ (10/16/2016 21:00:Lara Gilbert RN) DTR's/Clonus: DTRs 2+; No Clonus (10/16/2016 20:00:Lara Gilbert RN) DTR's/Clonus: DTRs 2+; No Clonus (10/16/2016 19:25:Lara Gilbert RN) DTR's/Clonus: DTRs 2+ (10/16/2016 19:00:MICHELLE King) DTR's/Clonus: DTRs 2+ (10/16/2016 18:30:MICHELLE King) DTR's/Clonus: DTRs 2+ (10/16/2016 18:00:MICHELLE King) DTR's/Clonus: DTRs 2+ (10/16/2016 17:30:MICHELLE King) DTR's/Clonus: DTRs 2+ (10/16/2016 17:00:MICHELLE King) DTR's/Clonus: DTRs 2+ (10/16/2016 16:30:MICHELLE King) DTR's/Clonus: DTRs 2+ (10/16/2016 10:30:MICHELLE King) DTR's/Clonus: DTRs 2+ (10/16/2016 10:00:Zamzam Ortiz, [facility]) DTR's/Clonus: DTRs 2+ (10/16/2016 09:30:Zamzam Ortiz [facility]) DTR's/Clonus: DTRs 2+ (10/16/2016 09:00:Zamzam Ortiz, [facility]) DTR's/Clonus: DTRs 2+ (10/16/2016 08:30:Zamzam Ortiz, [facility]) DTR's/Clonus: DTRs 2+ (10/16/2016 08:00:Zamzam Ortiz, [facility]) DTR's/Clonus: DTRs 2+ (10/16/2016 07:30:Zamzam Ortiz, [facility]) DTR's/Clonus: DTRs 1+; No Clonus (10/16/2016 06:00:Filemon Ribeiro RN) DTR's/Clonus: DTRs 1+; No Clonus (10/16/2016 05:00:Filemon Ribeiro RN) Headache: Generalized (10/17/2016 08:27:Francine Ramos RN) Headache: Generalized (10/17/2016 07:00:Lara Gilbert RN) Headache: Denies (10/17/2016 06:00:Lara Gilbert RN) Headache: Denies (10/17/2016 05:00:Lara Gilbert RN) Headache: Denies (10/17/2016 04:00:Lara Gilbert RN) Headache: Denies (10/17/2016 03:00:Lara Gilbert RN) Headache: Denies (10/17/2016 02:00:Lara Gilbert RN) Headache: Denies (10/17/2016 01:00:Lara Gilbert RN) Headache: Denies (10/17/2016 00:00:Lara Gilbert RN) Headache: Generalized (10/16/2016 23:00:Lara Gilbert RN) Headache: Generalized (10/16/2016 22:00:Lara Gilbert RN) Headache: Generalized (10/16/2016 21:00:Lara Gilbert RN) Headache: Temporal (10/16/2016 20:00:Lara Gilbert RN) Headache: Denies (10/16/2016 19:00:Zamzam Bellavance, RNC) Headache: Denies (10/16/2016 18:30:Zamzam Bellavance, RNC) Headache: Denies (10/16/2016 18:00:Zamzam Bellavance, RNC) Headache: Denies (10/16/2016 17:30:Zamzam Bellavance, RNC) Headache: Denies (10/16/2016 17:00:Zamzam Bellavance, RNC) Headache: Denies (10/16/2016 16:30:Zamzam Bellavance, RNC) Headache: Denies (10/16/2016 10:30:Zamzam Bellavance, RNC) Headache: Denies (10/16/2016 10:00:Zamzam Bellavance, RNC) Headache: Denies (10/16/2016 09:30:Zamzam Bellavance, RNC) Headache: Denies (10/16/2016 09:00:Zamzam Bellavance, RNC) Headache: Denies (10/16/2016 08:30:Zamzam Bellavance, RNC) Headache: Denies (10/16/2016 08:00:Zamzam Bellavance, RNC) Headache: Denies (10/16/2016 07:30:Zamzam Bellavance, RNC) Headache: Denies (10/16/2016 06:00:Filemon Ribeiro RN) Headache: Denies (10/16/2016 05:00:Filemon Ribeiro RN) Headache: Denies (10/16/2016 03:00:Filemon Ribeiro RN) Dizziness: No (10/17/2016 08:27:Francine Ramos RN) Dizziness: No (10/17/2016 07:00:Lara Gilbert RN) Dizziness: No (10/17/2016 06:00:Lara Gilbert RN) Dizziness: No (10/17/2016 05:00:Lara Gilbert RN) Dizziness: No (10/17/2016 04:00:Lara Gilbert RN) Dizziness: No (10/17/2016 03:00:Lara Gilbert RN) Dizziness: No (10/17/2016 02:00:Lara Gilbert RN) Dizziness: No (10/17/2016 01:00:Lara Gilbert RN) Dizziness: No (10/17/2016 00:00:Lara Gilbert RN) Dizziness: No (10/16/2016 23:00:Lara Gilbert RN) Dizziness: No (10/16/2016 22:00:Lara Gilbert RN) Dizziness: No (10/16/2016 21:00:Lara Gilbert RN) Dizziness: No (10/16/2016 20:00:Lara Gilbert RN) Dizziness: No (10/16/2016 06:00:Filemon Ribeiro RN) Dizziness: No (10/16/2016 05:00:Filemon Ribeiro RN) Dizziness: Yes (10/16/2016 03:00:Filemon Ribeiro RN) Blurred Vision: No (10/17/2016 08:27:Francine Ramos RN) Blurred Vision: No (10/17/2016 07:00:Lara Gilbert RN) Blurred Vision: No (10/17/2016 06:00:Lara Gilbert RN) Blurred Vision: No (10/17/2016 05:00:Lara Gilbert RN) Blurred Vision: No (10/17/2016 04:00:Lara Gilbert RN) Blurred Vision: No (10/17/2016 03:00:Lara Gilbert RN) Blurred Vision: No (10/17/2016 02:00:Lara Gilbert RN) Blurred Vision: No (10/17/2016 01:00:Lara Gilbert RN) Blurred Vision: No (10/17/2016 00:00:Lara Gilbert RN) Blurred Vision: No (10/16/2016 23:00:Lara Gilbert RN) Blurred Vision: No (10/16/2016 22:00:Lara Gilbert RN) Blurred Vision: No (10/16/2016 21:00:Lara Gilbert RN) Blurred Vision: No (10/16/2016 20:00:Lara Gilbert RN) Blurred Vision: No (10/16/2016 06:00:Filemon Ribeiro RN) Blurred Vision: No (10/16/2016 05:00:Filemon Ribeiro RN) Blurred Vision: No (10/16/2016 03:00:Filemon Ribeiro RN) Extremity Numbness/Tingling : None (10/17/2016 08:27:Francine Ramos RN) Extremity Numbness/Tingling : None (10/16/2016 19:25:Lara Gilbert RN) Extremity Numbness/Tingling : None (10/16/2016 06:00:Filemon Ribeiro RN) Extremity Numbness/Tingling : None (10/16/2016 05:00:Filemon Ribeiro RN) Extremity Numbness/Tingling : None (10/16/2016 03:00:Filemon Ribeiro RN) Extremity Movement: Full Range of Motion (10/17/2016 08:27:Francine Ramos RN) Extremity Movement: Full Range of Motion (10/16/2016 19:25:Lara Gilbert RN) Extremity Movement: Full Range of Motion (10/16/2016 06:00:Filemon Ribeiro RN) Extremity Movement: Full Range of Motion (10/16/2016 05:00:Filemon Ribeiro RN) Extremity Movement: Full Range of Motion (10/16/2016 03:00:Filemon Ribeiro RN) CARDIOVASCULAR Heart Rhythm: Regular (10/17/2016 08:27:Francine Ramos RN) Heart Rhythm: Regular (10/16/2016 06:00:Filemon Ribeiro RN) Heart Rhythm: Regular (10/16/2016 05:00:Filemon Ribeiro RN) Heart Rhythm: Regular (10/16/2016 03:00:Filemon Ribeiro RN) Nailbeds: [place] (10/17/2016 08:27:Francine Ramos RN) Nailbeds: [place] (10/16/2016 19:25:Lara Gilbert RN) Nailbeds: [place] (10/16/2016 06:00:Filemon Ribeiro RN) Nailbeds: [place] (10/16/2016 05:00:Filemon Ribeiro RN) Nailbeds: [place] (10/16/2016 03:00:Filemon Ribeiro RN) Capillary Refill: Less than 3 Seconds (10/17/2016 08:27:Francine Ramos RN) Capillary Refill: Less than 3 Seconds (10/16/2016 19:25:Lara Gilbert RN) Capillary Refill: Less than 3 Seconds (10/16/2016 06:00:Filemon Ribeiro RN) Capillary Refill: Less than 3 Seconds (10/16/2016 05:00:Filemon Ribeiro RN) Capillary Refill: Less than 3 Seconds (10/16/2016 03:00:Filemon Ribeiro RN) Lower Extremities Edema: None (10/17/2016 08:27:Francine Ramos RN) Lower Extremities Edema: None (10/17/2016 07:00:Lara Gilbert RN) Lower Extremities Edema: None (10/17/2016 06:00:Lara iGlbert RN) Lower Extremities Edema: None (10/17/2016 05:00:Lara Gilbert RN) Lower Extremities Edema: None (10/17/2016 04:00:Lara Gilbert RN) Lower Extremities Edema: None (10/17/2016 03:00:Lara Gilbert RN) Lower Extremities Edema: None (10/17/2016 02:00:Lara Gilbert RN) Lower Extremities Edema: None (10/17/2016 01:00:Lara Gilbert RN) Lower Extremities Edema: None (10/17/2016 00:00:Lara Gilbert RN) Lower Extremities Edema: None (10/16/2016 23:00:Lara Gilbert RN) Lower Extremities Edema: None (10/16/2016 22:00:Lara Gilbert RN) Lower Extremities Edema: None (10/16/2016 21:00:Lara Gilbert RN) Lower Extremities Edema: None (10/16/2016 20:00:Lara Gilbert RN) Lower Extremities Edema: None (10/16/2016 06:00:Filemon Ribeiro RN) Lower Extremities Edema: None (10/16/2016 05:00:Filemon Ribeiro RN) Lower Extremities Edema: None (10/16/2016 03:00:Filemon Ribeiro RN) Lower Extremities Edema Degree: None (10/17/2016 08:27:Francine Ramos RN) Lower Extremities Edema Degree: None (10/17/2016 07:00:Lara Gilbert RN) Lower Extremities Edema Degree: None (10/17/2016 06:00:Lara Gilbert RN) Lower Extremities Edema Degree: None (10/17/2016 05:00:Lara Gilbert RN) Lower Extremities Edema Degree: None (10/17/2016 04:00:Lara Gilbert RN) Lower Extremities Edema Degree: None (10/17/2016 03:00:Lara Gilbert RN) Lower Extremities Edema Degree: None (10/17/2016 02:00:Lara Gilbert RN) Lower Extremities Edema Degree: None (10/17/2016 01:00:Lara Gilbert RN) Lower Extremities Edema Degree: None (10/17/2016 00:00:Lara Gilbert RN) Lower Extremities Edema Degree: None (10/16/2016 23:00:Lara Gilbert RN) Lower Extremities Edema Degree: None (10/16/2016 22:00:Lara Gilbert RN) Lower Extremities Edema Degree: None (10/16/2016 21:00:Lara Gilbert RN) Lower Extremities Edema Degree: None (10/16/2016 20:00:Lara Gilbert RN) Lower Extremities Edema Degree: None (10/16/2016 05:00:Filemon Ribeiro RN) Lower Extremities Edema Degree: None (10/16/2016 03:00:Filemon Ribeiro RN) Upper Extremities Edema: None (10/17/2016 08:27:Francine Ramos RN) Upper Extremities Edema: None (10/17/2016 07:00:Lara Gilbert RN) Upper Extremities Edema: None (10/17/2016 06:00:Lara Gilbert RN) Upper Extremities Edema: None (10/17/2016 05:00:Lara Gilbert RN) Upper Extremities Edema: None (10/17/2016 04:00:Lara Gilbert RN) Upper Extremities Edema: None (10/17/2016 03:00:Lara Gilbert RN) Upper Extremities Edema: None (10/17/2016 02:00:Lara Gilbert RN) Upper Extremities Edema: None (10/17/2016 01:00:Lara Gilbert RN) Upper Extremities Edema: None (10/17/2016 00:00:Lara Gilbert RN) Upper Extremities Edema: None (10/16/2016 23:00:Lara Gilbert RN) Upper Extremities Edema: None (10/16/2016 22:00:Lara Gilbert RN) Upper Extremities Edema: None (10/16/2016 21:00:Lara Gilbert RN) Upper Extremities Edema: None (10/16/2016 20:00:Lara Gilbert RN) Upper Extremities Edema: None (10/16/2016 06:00:Filemon Ribeiro RN) Upper Extremities Edema: None (10/16/2016 05:00:Filemon Ribeiro RN) Upper Extremities Edema: None (10/16/2016 03:00:Filemon Ribeiro RN) Upper Extremities Edema Degree: None (10/17/2016 08:27:Francine Ramos RN) Upper Extremities Edema Degree: None (10/17/2016 07:00:Lara Gilbert RN) Upper Extremities Edema Degree: None (10/17/2016 06:00:Lara Gilbert RN) Upper Extremities Edema Degree: None (10/17/2016 05:00:Lara Gilbert RN) Upper Extremities Edema Degree: None (10/17/2016 04:00:Lara Gilbert RN) Upper Extremities Edema Degree: None (10/17/2016 03:00:Lara Gilbert RN) Upper Extremities Edema Degree: None (10/17/2016 02:00:Lara Gilbert RN) Upper Extremities Edema Degree: None (10/17/2016 01:00:Lara Gilbert RN) Upper Extremities Edema Degree: None (10/17/2016 00:00:Lara Gilbert RN) Upper Extremities Edema Degree: None (10/16/2016 23:00:Lara Gilbert RN) Upper Extremities Edema Degree: None (10/16/2016 22:00:Lara Gilbert RN) Upper Extremities Edema Degree: None (10/16/2016 21:00:Lara Gilbert RN) Upper Extremities Edema Degree: None (10/16/2016 20:00:Lara Gilbert RN) Upper Extremities Edema Degree: None (10/16/2016 06:00:Filemon Ribeiro RN) Upper Extremities Edema Degree: None (10/16/2016 05:00:Filemon Ribeiro RN) Facial Edema: None (10/17/2016 08:27:Francine Ramos RN) Facial Edema: None (10/17/2016 07:00:Lara Gilbert RN) Facial Edema: None (10/17/2016 06:00:Lara Gilbert RN) Facial Edema: None (10/17/2016 05:00:Lara Gilbert RN) Facial Edema: None (10/17/2016 04:00:Lara Gilbert RN) Facial Edema: None (10/17/2016 03:00:Lara Gilbert RN) Facial Edema: None (10/17/2016 02:00:Lara Gilbert RN) Facial Edema: None (10/17/2016 01:00:Lara Gilbert RN) Facial Edema: None (10/17/2016 00:00:Lara Gilbert RN) Facial Edema: None (10/16/2016 23:00:Lara Gilbert RN) Facial Edema: None (10/16/2016 22:00:Lara Gilbert RN) Facial Edema: None (10/16/2016 21:00:Lara Gilbert RN) Facial Edema: None (10/16/2016 20:00:Lara Gilbert RN) Facial Edema: None (10/16/2016 19:25:Lara Gilbert RN) Facial Edema: None (10/16/2016 06:00:Filemon Ribeiro RN) Facial Edema: None (10/16/2016 05:00:Filemon Ribeiro RN) Facial Edema: None (10/16/2016 03:00:Filemon Ribeiro RN) Sasha's Sign Left Leg: Negative (10/17/2016 08:27:Francine Ramos RN) Sasha's Sign Left Leg: Negative (10/16/2016 19:25:Lara Gilbert RN) Sasha's Sign Left Leg: Negative (10/16/2016 06:00:Filemon Ribeiro RN) Sasha's Sign Left Leg: Negative (10/16/2016 05:00:Filemon Ribeiro RN) Sasha's Sign Right Leg: Negative (10/17/2016 08:27:Francine Ramos RN) Sasha's Sign Right Leg: Negative (10/16/2016 19:25:Lara Gilbert RN) Sasha's Sign Right Leg: Negative (10/16/2016 06:00:Filemon Ribeiro RN) Sasha's Sign Right Leg: Negative (10/16/2016 05:00:Filemon Ribeiro RN) DVT RISK ASSESSMENT DVT Risk Age: Age less than 41 years (10/17/2016 08:27:Francine Ramos RN) DVT Risk Age: Age less than 41 years (10/16/2016 03:00:Filemon Ribeiro RN) DVT Risk BMI: BMI<31 (10/17/2016 08:27:Francine Ramos RN) DVT Risk BMI: BMI<31 (10/16/2016 03:00:Filemon Ribeiro RN) DVT Risk Surgery: None Applicable (10/17/2016 08:27:Francine Ramos RN) DVT Risk Surgery: None Applicable (10/16/2016 03:00:Filemon Ribeiro RN) DVT Risk Other: Women Only- or (<1 month) (10/17/2016 08:27:Francine Ramos RN) DVT Risk Other: None Applicable (10/16/2016 03:00:Filemon Ribeiro RN) DVT Risk Total: 1 (10/17/2016 08:27:QS system process) DVT Risk Total: 0 (10/16/2016 03:00:QS system process) DVT Risk Text: Low Risk (<10%) No specific measures, early ambulation (10/17/2016 08:27:QS system process) DVT Risk Text: Low Risk (<10%) No specific measures, early ambulation (10/16/2016 03:00:QS system process) RESPIRATORY Respiratory Effort: Unlabored; Regular Rhythm; Equal Expansion (10/17/2016 08:27:Francine Ramos RN) Respiratory Effort: Unlabored; Regular Rhythm; Equal Expansion (10/16/2016 19:25:Lara Gilbert RN) Respiratory Effort: Unlabored; Regular Rhythm; Equal Expansion (10/16/2016 05:00:Filemon Ribeiro RN) Respiratory Effort: Unlabored; Regular Rhythm; Equal Expansion (10/16/2016 03:00:Filemon Ribeiro RN) Breath Sounds, Left: Clear and Equal (10/17/2016 08:27:Francine Ramos RN) Breath Sounds, Left: Clear and Equal (10/17/2016 07:00:Lararacheal Gilbert, RN) Breath Sounds, Left: Clear and Equal (10/17/2016 06:00:Lararacheal Gilbert, RN) Breath Sounds, Left: Clear and Equal (10/17/2016 05:00:Lararacheal Gilbert, RN) Breath Sounds, Left: Clear and Equal (10/17/2016 04:00:Lararacheal Gilbert, RN) Breath Sounds, Left: Clear and Equal (10/17/2016 02:00:Lararacheal Gilbert, RN) Breath Sounds, Left: Clear and Equal (10/17/2016 01:00:Lara Gilbert, RN) Breath Sounds, Left: Clear and Equal (10/17/2016 00:00:Lara Gauravgerwood, RN) Breath Sounds, Left: Clear and Equal (10/16/2016 23:00:Lararacheal Gilbert, RN) Breath Sounds, Left: Clear and Equal (10/16/2016 22:00:Lara Grazynawood, RN) Breath Sounds, Left: Clear and Equal (10/16/2016 21:00:Lara Ofelia, RN) Breath Sounds, Left: Clear and Equal (10/16/2016 20:00:Lararacheal Gilbert, RN) Breath Sounds, Left: Clear and Equal (10/16/2016 19:25:Lara Gauravgerwood, RN) Breath Sounds, Left: Clear and Equal (10/16/2016 19:00:Zamzam Bellavance, RNC) Breath Sounds, Left: Clear and Equal (10/16/2016 18:30:Zamzam Bellavance, RNC) Breath Sounds, Left: Clear and Equal (10/16/2016 18:00:Zamzam Bellavance, RNC) Breath Sounds, Left: Clear and Equal (10/16/2016 17:30:Zamzam Bellavance, RNC) Breath Sounds, Left: Clear and Equal (10/16/2016 17:00:Zamzam Bellavance, RNC) Breath Sounds, Left: Clear and Equal (10/16/2016 16:30:Zamzam Bellavance, RNC) Breath Sounds, Left: Clear and Equal (10/16/2016 10:30:Zamzam Bellavance, RNC) Breath Sounds, Left: Clear and Equal (10/16/2016 10:00:Zamzam Bellavance, RNC) Breath Sounds, Left: Clear and Equal (10/16/2016 09:30:Zamzam Bellavance, RNC) Breath Sounds, Left: Clear and Equal (10/16/2016 09:00:Zamzam Bellavance, RNC) Breath Sounds, Left: Clear and Equal (10/16/2016 08:30:Zamzam Bellavance, RNC) Breath Sounds, Left: Clear and Equal (10/16/2016 08:00:Zamzam Bellavance, RNC) Breath Sounds, Left: Clear and Equal (10/16/2016 07:30:Zamzam Bellavance, RNC) Breath Sounds, Left: Clear and Equal (10/16/2016 05:00:Filemon Ribeiro RN) Breath Sounds, Right: Clear and Equal (10/17/2016 08:27:Francine Ramos RN) Breath Sounds, Right: Clear and Equal (10/17/2016 07:00:Lara Gilbert RN) Breath Sounds, Right: Clear and Equal (10/17/2016 06:00:Lara Gilbert RN) Breath Sounds, Right: Clear and Equal (10/17/2016 05:00:Lara Gilbert RN) Breath Sounds, Right: Clear and Equal (10/17/2016 04:00:Lara Gilbert RN) Breath Sounds, Right: Clear and Equal (10/17/2016 03:00:Lara Gilbert RN) Breath Sounds, Right: Clear and Equal (10/17/2016 02:00:Lara Gilbert RN) Breath Sounds, Right: Clear and Equal (10/17/2016 01:00:Lara Gilbert RN) Breath Sounds, Right: Clear and Equal (10/17/2016 00:00:Lara Gilbert RN) Breath Sounds, Right: Clear and Equal (10/16/2016 23:00:Lara Gilbert, RN) Breath Sounds, Right: Clear and Equal (10/16/2016 22:00:Lara Gilbert, RN) Breath Sounds, Right: Clear and Equal (10/16/2016 21:00:Lararacheal Gilbert, RN) Breath Sounds, Right: Clear and Equal (10/16/2016 20:00:Lara Gilbert, RN) Breath Sounds, Right: Clear and Equal (10/16/2016 19:25:Lara Gilbert, RN) Breath Sounds, Right: Clear and Equal (10/16/2016 10:30:Zamzam Bellavance, RNC) Breath Sounds, Right: Clear and Equal (10/16/2016 10:00:Zamzam Bellavance, RNC) Breath Sounds, Right: Clear and Equal (10/16/2016 09:30:Zamzam Bellavance, RNC) Breath Sounds, Right: Clear and Equal (10/16/2016 09:00:Zamzam Bellavance, RNC) Breath Sounds, Right: Clear and Equal (10/16/2016 08:30:Zamzam Bellavance, RNC) Breath Sounds, Right: Clear and Equal (10/16/2016 08:00:Zamzam Bellavance, RNC) Breath Sounds, Right: Clear and Equal (10/16/2016 07:30:Zamzam Bellavance, RNC) Breath Sounds, Right: Clear and Equal (10/16/2016 05:00:Filemon Ribeiro RN) Cough Productivity: None (10/17/2016 08:27:Francine Ramos RN) Cough Productivity: None (10/16/2016 19:25:Lara Gilbert RN) Cough Productivity: None (10/16/2016 05:00:Filemon Ribeiro RN) Cough Productivity: None (10/16/2016 03:00:Filemon Ribeiro RN) GASTROINTESTINAL Nausea/Vomiting: Denies (10/17/2016 08:27:Francine Ramos RN) Nausea/Vomiting: Denies (10/17/2016 07:00:Lara Gilbert RN) Nausea/Vomiting: Denies (10/17/2016 06:00:Lara Gilbert RN) Nausea/Vomiting: Denies (10/17/2016 05:00:Lara Gilbert RN) Nausea/Vomiting: Denies (10/17/2016 04:00:Lara Gilbert RN) Nausea/Vomiting: Denies (10/17/2016 03:00:Lara Gilbert RN) Nausea/Vomiting: Denies (10/17/2016 02:00:Lara Gilbert RN) Nausea/Vomiting: Denies (10/17/2016 01:00:Lara Gilbert RN) Nausea/Vomiting: Denies (10/17/2016 00:00:Lara Gilbert RN) Nausea/Vomiting: Denies (10/16/2016 23:00:Lara Gilbert RN) Nausea/Vomiting: Denies (10/16/2016 22:00:Lara Gilbert RN) Nausea/Vomiting: Denies (10/16/2016 21:00:Lara Gilbert RN) Nausea/Vomiting: Denies (10/16/2016 20:00:Lara Gilbert RN) Nausea/Vomiting: Denies (10/16/2016 19:25:Lara Gilbert RN) Nausea/Vomiting: Denies (10/16/2016 19:00:MICHELLE King) Nausea/Vomiting: Denies (10/16/2016 18:30:MICHELLE King) Nausea/Vomiting: Denies (10/16/2016 18:00:MICHELLE King) Nausea/Vomiting: Denies (10/16/2016 17:30:Zamzam Aylance, RNC) Nausea/Vomiting: Denies (10/16/2016 17:00:Zamzam Aylance, RNC) Nausea/Vomiting: Denies (10/16/2016 16:30:Zamzam Bellavance, RNC) Nausea/Vomiting: Denies (10/16/2016 10:30:Zamzam Bellavance, RNC) Nausea/Vomiting: Denies (10/16/2016 10:00:Zamzam Bellavance, RNC) Nausea/Vomiting: Denies (10/16/2016 09:30:Zamzam Bellavance, RNC) Nausea/Vomiting: Denies (10/16/2016 09:00:Zamzam Felicitaavance, RNC) Nausea/Vomiting: Denies (10/16/2016 08:30:Zamzam Bellavance, RNC) Nausea/Vomiting: Denies (10/16/2016 08:00:Zamzambrandon Aguilance RNC) Nausea/Vomiting: Denies (10/16/2016 07:30:Zamzam Aylance, RNC) Nausea/Vomiting: Denies (10/16/2016 06:00:Filemon Ribeiro RN) Nausea/Vomiting: Denies (10/16/2016 05:00:Filemon Ribeiro RN) Nausea/Vomiting: Denies (10/16/2016 03:00:Filemon Ribeiro RN) Bowel Sounds: Normoactive (10/17/2016 08:27:Francine Ramos RN) Bowel Sounds: Normoactive; All Quadrants (10/16/2016 19:25:Lara Gilbert RN) RUQ Epigastric Pain: Denies (10/17/2016 08:27:Francine Ramos RN) RUQ Epigastric Pain: Denies (10/17/2016 07:00:Lara Gilbert RN) RUQ Epigastric Pain: Denies (10/17/2016 06:00:Lara Gilbert RN) RUQ Epigastric Pain: Denies (10/17/2016 05:00:Lara Gilbert RN) RUQ Epigastric Pain: Denies (10/17/2016 04:00:Lara Gilbert RN) RUQ Epigastric Pain: Denies (10/17/2016 03:00:Lara Gilbert RN) RUQ Epigastric Pain: Denies (10/17/2016 02:00:Lara Gilbert RN) RUQ Epigastric Pain: Denies (10/17/2016 01:00:Lara Gilbert RN) RUQ Epigastric Pain: Denies (10/17/2016 00:00:Lara Gilbert RN) RUQ Epigastric Pain: Denies (10/16/2016 23:00:Lara Gilbert RN) RUQ Epigastric Pain: Denies (10/16/2016 22:00:Lara Gilbert RN) RUQ Epigastric Pain: Denies (10/16/2016 20:00:Lara Gilbert RN) RUQ Epigastric Pain: Denies (10/16/2016 19:25:Lara Gilbert RN) RUQ Epigastric Pain: Denies (10/16/2016 19:00:MICHELLE King) RUQ Epigastric Pain: Denies (10/16/2016 18:30:MICHELLE King) RUQ Epigastric Pain: Denies (10/16/2016 18:00:MICHELLE King) RUQ Epigastric Pain: Denies (10/16/2016 17:30:MICHELLE King) RUQ Epigastric Pain: Denies (10/16/2016 17:00:MICHELLE King) RUQ Epigastric Pain: Denies (10/16/2016 16:30:MICHELLE King) RUQ Epigastric Pain: Denies (10/16/2016 10:30:MICHELLE King) RUQ Epigastric Pain: Denies (10/16/2016 10:00:MICHELLE King) RUQ Epigastric Pain: Denies (10/16/2016 09:30:MICHELLE King) RUQ Epigastric Pain: Denies (10/16/2016 09:00:MICHELLE King) RUQ Epigastric Pain: Denies (10/16/2016 08:30:MICHELLE King) RUQ Epigastric Pain: Denies (10/16/2016 08:00:MICHELLE King) RUQ Epigastric Pain: Denies (10/16/2016 07:30:MICHELLE King) RUQ Epigastric Pain: Denies (10/16/2016 06:00:Filemon Ribeiro RN) RUQ Epigastric Pain: Denies (10/16/2016 05:00:Filemon Ribeiro RN) Bowel Patterns: Soft, Formed Stool (10/17/2016 08:27:Francine Ramos RN) Bowel Patterns: Soft, Formed Stool (10/16/2016 03:00:Filemon Ribeiro RN) Hemorrhoids: None (10/17/2016 08:27:Francine Ramos RN) Hemorrhoids: None (10/16/2016 03:00:Filemon Ribeiro RN) Diet Type: Regular diet (10/17/2016 08:27:Francine Ramos RN) Diet Type: Regular diet (10/16/2016 03:00:Filemon Ribeiro RN) GENITOURINARY Bladder: Nondistended (10/17/2016 08:27:Francine Ramos RN) Bladder: Nondistended (10/16/2016 19:25:Lara Gilbert RN) Catheter: [place] to Bedside Bag (10/16/2016 19:25:Lara Gilbert RN) Catheter: [place] to Bedside Bag (10/16/2016 06:00:Filemon Ribeiro RN) Catheter: [place] to Bedside Bag (10/16/2016 05:00:Filemon Ribeiro RN) Frequency of Urination: No (10/17/2016 08:27:Francine Ramos RN) Frequency of Urination: No (10/16/2016 19:25:Lara Gilbert RN) Urination Burning: No (10/17/2016 08:27:Francine Ramos RN) Urination Burning: No (10/16/2016 19:25:Lara Gilbert RN) CVA Tenderness: No (10/17/2016 08:27:Francine Ramos RN) CVA Tenderness: No (10/16/2016 19:25:Lara Gilbert RN) Vaginal Bleeding: None (10/16/2016 19:25:Lara Gilbert RN) Vaginal Discharge Amount: None (10/16/2016 03:00:Filemon Ribeiro RN) Vaginal Discharge Color: N/A (10/16/2016 19:25:Lara Gilbert RN) Vaginal Discharge Color: N/A (10/16/2016 03:00:Filemon Ribeiro RN) INTEGUMENTARY Skin Color: Normal for Race (10/17/2016 08:27:Francine Ramos RN) Skin Color: Normal for Race (10/16/2016 19:25:Lara Gilbert RN) Skin Color: Normal for Race (10/16/2016 06:00:Filemon Ribeiro RN) Skin Color: Normal for Race (10/16/2016 05:00:Filemon Ribeiro RN) Skin Color: Normal for Race (10/16/2016 03:00:Filemon Ribeiro RN) Skin Temperature: Warm (10/17/2016 08:27:Franicne Ramos RN) Skin Temperature: Warm (10/16/2016 19:25:Lara Gilbert RN) Skin Temperature: Warm (10/16/2016 06:00:Filemon Ribeiro RN) Skin Temperature: Warm (10/16/2016 05:00:Filemon Ribeiro RN) Skin Temperature: Warm (10/16/2016 03:00:Filemon Ribeiro RN) Skin Moisture: Dry (10/17/2016 08:27:Francine Ramos RN) Skin Moisture: Dry (10/16/2016 19:25:Lara Gilbert RN) Skin Moisture: Dry (10/16/2016 06:00:Filemon Ribeiro RN) Skin Moisture: Dry (10/16/2016 05:00:Filemon Ribeiro RN) Skin Moisture: Dry (10/16/2016 03:00:Filemon Ribeiro RN) Surgical Scars: None (10/16/2016 03:00:Filemon Ribeiro RN) MARK SKIN ASSESSMENT Mark Scale Sensory Perception: No Impairment- Responds to verbal commands. Has no sensory deficit which would limit ability to feel or voice pain or discomfort (10/17/2016 08:27:Francine Ramos RN) Mark Scale Sensory Perception: No Impairment- Responds to verbal commands. Has no sensory deficit which would limit ability to feel or voice pain or discomfort (10/16/2016 19:25:Lara Gilbert RN) Mark Scale Sensory Perception: No Impairment- Responds to verbal commands. Has no sensory deficit which would limit ability to feel or voice pain or discomfort (10/16/2016 05:00:Filemon Riebiro RN) Mark Scale Moisture: Rarely Moist- Skin is usually dry. Linen only requires changing at routine intervals (10/17/2016 08:27:Francine Ramos RN) Mark Scale Moisture: Rarely Moist- Skin is usually dry. Linen only requires changing at routine intervals (10/16/2016 19:25:Lara Gilbert RN) Mark Scale Moisture: Rarely Moist- Skin is usually dry. Linen only requires changing at routine intervals (10/16/2016 05:00:Filemon Ribeiro RN) Mark Scale Activity: Bedfast- Confined to bed. (10/17/2016 08:27:Francine Ramos RN) Mark Scale Activity: Walks Frequently- Walks outside the room at least twice a day and inside room at least every 2 hours during the day. (10/16/2016 19:25:Lara Gilbert RN) Mark Scale Mobility: No Limitations- Makes major and frequent changes in position without assistance (10/17/2016 08:27:Francnie Ramos RN) Mark Scale Mobility: No Limitations- Makes major and frequent changes in position without assistance (10/16/2016 19:25:Lara Gilbert RN) Mark Scale Nutrition: Adequate- Eats over half of most meals. Eats a total of 4 servings of protein (meat, dairy products) each day. Occasionally will refuse a meal but will usually take a supplement if offered OR is on a tube feeding or TPN regimen which probably meets most of nutritional needs (10/17/2016 08:27:Francine Ramos RN) Mark Scale Nutrition: Excellent- Eats most of every meal. Never refuses a meal. Usually eats a total of 4 or more servings of meat and dairy products. Occasionally eats between meals. Does not require supplementation (10/16/2016 19:25:Lara Gilbert RN) Mark Scale Friction and Shear: No Apparent Problem- Moves in bed and in chair independently and has sufficient muscle strength to lift up completely during move. Maintains good position in bed or chair at all times (10/17/2016 08:27:Francine Ramos RN) Mark Scale Friction and Shear: No Apparent Problem- Moves in bed and in chair independently and has sufficient muscle strength to lift up completely during move. Maintains good position in bed or chair at all times (10/16/2016 19:25:Lara Gilbert RN) Mark Scale Total: 19 (10/17/2016 08:27:QS system process) Mark Scale Total: 23 (10/16/2016 19:25:QS system process) Mark Scale Risk: No Risk of Pressure Ulcer Noted at this Time (10/17/2016 08:27:QS system process) Mark Scale Risk: No Risk of Pressure Ulcer Noted at this Time (10/16/2016 19:25:QS system process) SUPPORT Family Support: Significant Other supportive, at bedside frequently (10/17/2016 08:27:Francine Ramos RN) Family Support: Significant Other supportive, at bedside frequently; Family supportive (10/16/2016 19:25:Lara Gilbert RN) Family Support: Family supportive (10/16/2016 05:00:Filemon Ribeiro RN) Family Support: Family supportive (Annotations: Mother in law at bedside) (10/16/2016 03:00:Filemon Ribeiro RN) Emotional State: Calm/Relaxed (10/17/2016 08:27:Francine Ramos RN) Emotional State: Calm/Relaxed (10/16/2016 19:25:Lara Gilbert RN) Emotional State: Calm/Relaxed (10/16/2016 05:00:Filemon Ribeiro RN) Emotional State: Calm/Relaxed (10/16/2016 03:00:Filemon Ribeiro RN) SAFETY Call Mims Within Reach: Yes (10/17/2016 08:27:Francine Ramos RN) Call Mims Within Reach: Yes (10/16/2016 19:25:Lara Gilbert RN) Call Mims Within Reach: Yes (10/16/2016 06:00:Filemon Ribeiro RN) Call Mims Within Reach: Yes (10/16/2016 05:00:Filemon Ribeiro RN) Call Mims Within Reach: Yes (10/16/2016 03:00:Filemon Ribeiro RN) Side Rails Up: Yes (10/17/2016 08:27:Francine Ramos RN) Side Rails Up: Yes (10/16/2016 19:25:Lara Gilbert RN) Side Rails Up: Yes (10/16/2016 06:00:Filemon Ribeiro RN) Side Rails Up: Yes (10/16/2016 05:00:Filemon Ribeiro RN) Side Rails Up: Yes (10/16/2016 03:00:Filemon Ribeiro RN) Bed Wheels Locked: Yes (10/17/2016 08:27:Francine Ramos RN) Bed Wheels Locked: Yes (10/16/2016 19:25:Lara Gilbert RN) Bed Wheels Locked: Yes (10/16/2016 06:00:Filemon Ribeiro RN) Bed Wheels Locked: Yes (10/16/2016 05:00:Filemon Ribeiro RN) Bed Wheels Locked: Yes (10/16/2016 03:00:Filemon Ribeiro RN) Arm Bands Present: Yes (10/17/2016 08:27:Francine Ramos RN) Arm Bands Present: Yes (10/16/2016 19:25:Lara Gilbert RN) Arm Bands Present: Yes (10/16/2016 06:00:Filemon Ribeiro RN) Arm Bands Present: Yes (10/16/2016 05:00:Filemon Ribeiro RN) Arm Bands Present: Yes (10/16/2016 03:00:Filemon Ribeiro RN) Isolation: [place] (10/17/2016 08:27:Francine Ramos RN) Isolation: [place] (10/16/2016 06:00:Filemon Ribeiro RN) Isolation: [place] (10/16/2016 05:00:Filemon Ribeiro RN) Isolation: [place] (10/16/2016 03:00:Filemon Ribeiro RN) FALL SCREEN Fall Risk History of Falling: (0) No (10/17/2016 08:27:Francine Ramos RN) Fall Risk History of Falling: (0) No (10/16/2016 19:25:Lara Gilbert RN) Fall Risk History of Falling: (0) No (10/16/2016 03:00:Filemon Ribeiro RN) Fall Risk Secondary Diagnosis: (0) No (10/17/2016 08:27:Francine Ramos RN) Fall Risk Secondary Diagnosis: (0) No (10/16/2016 19:25:Lara Gilbert RN) Fall Risk Ambulatory Aid: (0) None/Bedrest/Wheelchair/Nurse Assist (10/17/2016 08:27:Francine Ramos RN) Fall Risk Ambulatory Aid: (0) None/Bedrest/Wheelchair/Nurse Assist (10/16/2016 19:25:Lara Gilbert RN) Fall Risk IV Therapy: (20) Yes (10/17/2016 08:27:Francine Ramos RN) Fall Risk IV Therapy: (0) No (10/16/2016 19:25:Lara Gilbert RN) Fall Risk Gait: (0) Normal/Bedrest/Immobile (10/17/2016 08:27:Francine Ramos RN) Fall Risk Gait: (0) Normal/Bedrest/Immobile (10/16/2016 19:25:Lara Gilbert RN) Fall Risk Mental Status: (0) Oriented to Own Ability (10/17/2016 08:27:Francine Ramos RN) Fall Risk Mental Status: (0) Oriented to Own Ability (10/16/2016 19:25:Lara Gilbert RN) Fall Risk Score: 20 (10/17/2016 08:27:QS system process) Fall Risk Score: 0 (10/16/2016 19:25:QS system process) Fall Risk Score Definition: No Risk: No action required (10/17/2016 08:27:QS system process) Fall Risk Score Definition: No Risk: No action required (10/16/2016 19:25:QS system process) RECENT TRAVEL/INFECTIOUS DISEASE Recent Exp Communicable Disease: No (10/17/2016 08:27:Francine Ramos RN) Recent Exp Communicable Disease: No (10/16/2016 03:00:Filemon Ribeiro RN) Cough or Fever: No (10/17/2016 08:27:Francine Ramos RN) Cough or Fever: No (10/16/2016 03:00:Filemon Ribeiro RN) Foreign Travel Past 10 Days: No (10/17/2016 08:27:Francine Ramos RN) Foreign Travel Past 10 Days: No (10/16/2016 03:00:Filemon Ribeiro RN) Open Wounds or Sores: No (10/17/2016 08:27:Francine Ramos RN) Open Wounds or Sores: No (10/16/2016 03:00:Filemon Ribeiro RN) Prior Antibiotic Resistance Tx: No (10/17/2016 08:27:Francine Ramos RN) Prior Antibiotic Resistance Tx: No (10/16/2016 03:00:Filemon Ribeiro RN) Cultures Obtained: Not Applicable (10/17/2016 08:27:Francine Ramos RN) Cultures Obtained: Not Applicable (10/16/2016 03:00:Filemon Ribeiro RN) Isolation Initiated: No (10/17/2016 08:27:Francine Ramos RN) Isolation Initiated: No (10/16/2016 03:00:Filemon Ribeiro RN) Pt/Family Education: Not Applicable (10/17/2016 08:27:Francine Ramos RN) Pt/Family Education: Not Applicable (10/16/2016 03:00:Filemon Ribeiro RN) BABY A FHR Baseline Rate (bpm) Baby A: 125 (10/17/2016 09:00:Francine Ramos RN) FHR Baseline Rate (bpm) Baby A: 130 (10/17/2016 08:30:Francine Ramos RN) FHR Baseline Rate (bpm) Baby A: 130 (10/17/2016 08:00:Francine Ramos RN) FHR Baseline Rate (bpm) Baby A: 130 (10/17/2016 07:30:Francine Ramos RN) FHR Baseline Rate (bpm) Baby A: 125 (10/17/2016 07:00:Lara Gilbert RN) FHR Baseline Rate (bpm) Baby A: 125 (10/17/2016 06:30:Lara Gilbert RN) FHR Baseline Rate (bpm) Baby A: 125 (10/17/2016 06:00:Lara Gilbert RN) FHR Baseline Rate (bpm) Baby A: 125 (10/17/2016 05:30:Lara Gilbert RN) FHR Baseline Rate (bpm) Baby A: 135 (10/17/2016 05:00:Lara Gilbert RN) FHR Baseline Rate (bpm) Baby A: 125 (10/17/2016 04:30:Lara Gilbert RN) FHR Baseline Rate (bpm) Baby A: 125 (10/17/2016 04:00:Lara Gilbert RN) FHR Baseline Rate (bpm) Baby A: 120 (10/17/2016 03:30:Lara Gilbert RN) FHR Baseline Rate (bpm) Baby A: 120 (10/17/2016 03:00:Lara Gilbert RN) FHR Baseline Rate (bpm) Baby A: 125 (10/17/2016 02:30:Lara Gilbert RN) FHR Baseline Rate (bpm) Baby A: 120 (10/17/2016 02:00:Lara Gilbert RN) FHR Baseline Rate (bpm) Baby A: 120 (10/17/2016 01:30:Lara Gilbert RN) FHR Baseline Rate (bpm) Baby A: 120 (10/17/2016 01:00:Lara Gilbert RN) FHR Baseline Rate (bpm) Baby A: 120 (10/17/2016 00:30:Lara Gilbert RN) FHR Baseline Rate (bpm) Baby A: 120 (10/17/2016 00:00:Lara Gilbert RN) FHR Baseline Rate (bpm) Baby A: 120 (10/16/2016 23:30:Lara Gilbert RN) FHR Baseline Rate (bpm) Baby A: 120 (10/16/2016 23:00:Lara Gilbert RN) FHR Baseline Rate (bpm) Baby A: 120 (10/16/2016 22:30:Lara Gilbert RN) FHR Baseline Rate (bpm) Baby A: 120 (10/16/2016 22:00:Lara Gilbert RN) FHR Baseline Rate (bpm) Baby A: 130 (10/16/2016 21:30:Lina Thomson RN) FHR Baseline Rate (bpm) Baby A: 120 (10/16/2016 21:00:Lara Gilbert RN) FHR Baseline Rate (bpm) Baby A: 120 (10/16/2016 20:30:Lara Gilbert RN) FHR Baseline Rate (bpm) Baby A: 115 (10/16/2016 20:00:Lara Gilbert RN) FHR Baseline Rate (bpm) Baby A: 115 (10/16/2016 19:30:Lara Gilbert RN) FHR Baseline Rate (bpm) Baby A: 120 (10/16/2016 19:00:MICHELLE King) FHR Baseline Rate (bpm) Baby A: 120 (10/16/2016 18:30:MICHELLE King) FHR Baseline Rate (bpm) Baby A: 120 (10/16/2016 18:00:MICHELLE King) FHR Baseline Rate (bpm) Baby A: 120 (10/16/2016 17:30:MICHELLE King) FHR Baseline Rate (bpm) Baby A: 120 (10/16/2016 17:00:MICHELLE King) FHR Baseline Rate (bpm) Baby A: 120 (10/16/2016 16:30:MICHELLE King) FHR Baseline Rate (bpm) Baby A: 120 (10/16/2016 16:00:MICHELLE King) FHR Baseline Rate (bpm) Baby A: 120 (10/16/2016 15:30:Zamzam Bellavance, RNC) FHR Baseline Rate (bpm) Baby A: 120 (10/16/2016 15:00:Zamzambrandon Aguilance RNC) FHR Baseline Rate (bpm) Baby A: 120 (10/16/2016 14:30:Zamzambrandon Aguilance RNC) FHR Baseline Rate (bpm) Baby A: 120 (10/16/2016 14:00:Zamzambrandon Aguilance, RNC) FHR Baseline Rate (bpm) Baby A: 120 (10/16/2016 13:37:Zamzambrandon Aguilance RNC) FHR Baseline Rate (bpm) Baby A: 120 (10/16/2016 13:00:Zamzam Felicitaavance RNC) FHR Baseline Rate (bpm) Baby A: 120 (10/16/2016 12:30:Zamzambrandon Aguilance RNC) FHR Baseline Rate (bpm) Baby A: 120 (10/16/2016 12:00:Zamzambrandon Ortiz RNC) FHR Baseline Rate (bpm) Baby A: 120 (10/16/2016 11:30:Zamzambrandon Aguilance RNC) FHR Baseline Rate (bpm) Baby A: 120 (10/16/2016 11:00:Zamzambrandon Aguilance, RNC) FHR Baseline Rate (bpm) Baby A: 120 (10/16/2016 10:30:Zamzambrandon Aguilance RNC) FHR Baseline Rate (bpm) Baby A: 120 (10/16/2016 10:00:Zamzambrandon Aguilance RNC) FHR Baseline Rate (bpm) Baby A: 120 (10/16/2016 09:30:Zamzambrandon Aguilance RNC) FHR Baseline Rate (bpm) Baby A: 120 (10/16/2016 09:00:Zamzam Felicitaavance, RNC) FHR Baseline Rate (bpm) Baby A: 120 (10/16/2016 08:30:Zamzam Aylance RNC) FHR Baseline Rate (bpm) Baby A: 120 (10/16/2016 08:00:Zamzambrandon Mimsavance, RNC) FHR Baseline Rate (bpm) Baby A: 120 (10/16/2016 07:30:Zamzambrandon Aguilance RNC) FHR Baseline Rate (bpm) Baby A: 150 (10/16/2016 07:00:Filemon Ribeiro RN) FHR Baseline Rate (bpm) Baby A: 140 (10/16/2016 06:45:Filemon Ribeiro RN) FHR Baseline Rate (bpm) Baby A: 130 (10/16/2016 06:30:Filemon Ribeiro RN) FHR Baseline Rate (bpm) Baby A: 130 (10/16/2016 06:15:Filemon Ribeiro RN) FHR Baseline Rate (bpm) Baby A: 130 (10/16/2016 06:00:Filemon Ribeiro RN) FHR Baseline Rate (bpm) Baby A: 130 (10/16/2016 05:45:Filemon Ribeiro RN) FHR Baseline Rate (bpm) Baby A: 135 (10/16/2016 05:30:Filemon Ribeiro RN) FHR Baseline Rate (bpm) Baby A: 130 (10/16/2016 05:15:Mary Villanueva RN) FHR Baseline Rate (bpm) Baby A: 135 (10/16/2016 05:00:Mary Villanueva RN) FHR Baseline Rate (bpm) Baby A: 135 (10/16/2016 04:45:Mary Villanueva RN) FHR Baseline Rate (bpm) Baby A: 135 (10/16/2016 04:30:Mary Villanueva RN) FHR Baseline Rate (bpm) Baby A: 135 (10/16/2016 04:15:Mary Villanueva RN) FHR Baseline Rate (bpm) Baby A: 135 (10/16/2016 04:00:Mary Villanueva RN) FHR Baseline Rate (bpm) Baby A: 130 (10/16/2016 03:45:Mray Villanueva RN) FHR Baseline Rate (bpm) Baby A: 130 (10/16/2016 03:30:Mary Villanueva RN) FHR Baseline Rate (bpm) Baby A: 135 (10/16/2016 03:15:Mary Villanueva RN) Variability Baby A: Moderate 6-25 bpm (10/17/2016 09:00:Francine Ramos RN) Variability Baby A: Moderate 6-25 bpm (10/17/2016 08:30:Francine Ramos RN) Variability Baby A: Moderate 6-25 bpm (10/17/2016 08:00:Francine Ramos RN) Variability Baby A: Moderate 6-25 bpm (10/17/2016 07:30:Francine Ramos RN) Variability Baby A: Moderate 6-25 bpm (10/17/2016 07:00:Lararacheal Gilbert, RN) Variability Baby A: Minimal - Undetectable to <=5 bpm (10/17/2016 06:30:Lararacheal Gilbert RN) Variability Baby A: Moderate 6-25 bpm (10/17/2016 06:00:Lara Ofelia, RN) Variability Baby A: Moderate 6-25 bpm (10/17/2016 05:30:Lara Ofelia, RN) Variability Baby A: Moderate 6-25 bpm (10/17/2016 05:00:Lara Ofelia, RN) Variability Baby A: Moderate 6-25 bpm (10/17/2016 04:30:Lararacheal Gilbert RN) Variability Baby A: Moderate 6-25 bpm (10/17/2016 04:00:Lara Ofelia, RN) Variability Baby A: Moderate 6-25 bpm (10/17/2016 03:30:Lararacheal Gilbert, RN) Variability Baby A: Minimal - Undetectable to <=5 bpm (10/17/2016 03:00:Lara Ofelia, RN) Variability Baby A: Moderate 6-25 bpm (10/17/2016 02:30:Lara Ofelia, RN) Variability Baby A: Moderate 6-25 bpm (10/17/2016 02:00:Lara Ofelia RN) Variability Baby A: Moderate 6-25 bpm (10/17/2016 01:30:Lara Ledgerwood, RN) Variability Baby A: Moderate 6-25 bpm (10/17/2016 01:00:Lara Ledgerwood, RN) Variability Baby A: Moderate 6-25 bpm (10/17/2016 00:30:Lara Ledgerwood, RN) Variability Baby A: Moderate 6-25 bpm (10/17/2016 00:00:Lara Grazynawood, RN) Variability Baby A: Moderate 6-25 bpm (10/16/2016 23:30:Lara Ledgerwood, RN) Variability Baby A: Moderate 6-25 bpm (10/16/2016 23:00:Lara Gilbert RN) Variability Baby A: Moderate 6-25 bpm (10/16/2016 22:30:Lara Gilbert RN) Variability Baby A: Moderate 6-25 bpm (10/16/2016 22:00:Lara Gilbert, RN) Variability Baby A: Moderate 6-25 bpm (10/16/2016 21:30:Lina Thomson RN) Variability Baby A: Moderate 6-25 bpm (10/16/2016 21:00:Lara Gilbert RN) Variability Baby A: Moderate 6-25 bpm (10/16/2016 20:30:Lara Gilbert RN) Variability Baby A: Moderate 6-25 bpm (10/16/2016 20:00:Lara Gilbert RN) Variability Baby A: Moderate 6-25 bpm (10/16/2016 19:30:Lara Gilbert RN) Variability Baby A: Moderate 6-25 bpm (10/16/2016 19:00:Zamzambrandon Aguilance, RNC) Variability Baby A: Moderate 6-25 bpm (10/16/2016 18:30:Zamzam Aylance, RNC) Variability Baby A: Moderate 6-25 bpm (10/16/2016 18:00:Zamzam Felicitaavance, RNC) Variability Baby A: Moderate 6-25 bpm (10/16/2016 17:30:Zamzam Bellavance, RNC) Variability Baby A: Moderate 6-25 bpm (10/16/2016 17:00:Zamzam Felicitaavance, RNC) Variability Baby A: Moderate 6-25 bpm (10/16/2016 16:30:Zamzam Bellavance, RNC) Variability Baby A: Moderate 6-25 bpm (10/16/2016 16:00:Zamzam Bellavance, RNC) Variability Baby A: Moderate 6-25 bpm (10/16/2016 15:30:Zamzam Bellavance, RNC) Variability Baby A: Moderate 6-25 bpm (10/16/2016 15:00:Zamzam Bellavance, RNC) Variability Baby A: Moderate 6-25 bpm (10/16/2016 14:30:Zamzam Bellavance, RNC) Variability Baby A: Moderate 6-25 bpm (10/16/2016 14:00:Zamzam Bellavance, RNC) Variability Baby A: Moderate 6-25 bpm (10/16/2016 13:37:Zamzam Bellavance, RNC) Variability Baby A: Moderate 6-25 bpm (10/16/2016 13:00:Zamzam Bellavance, RNC) Variability Baby A: Moderate 6-25 bpm (10/16/2016 12:30:Zamzam Bellavance, RNC) Variability Baby A: Moderate 6-25 bpm (10/16/2016 12:00:Zamzam Bellavance, RNC) Variability Baby A: Moderate 6-25 bpm (10/16/2016 11:30:Zamzam Bellavance, RNC) Variability Baby A: Moderate 6-25 bpm (10/16/2016 11:00:Zamzam Bellavance, RNC) Variability Baby A: Moderate 6-25 bpm (10/16/2016 10:30:Zamzam Bellavance, RNC) Variability Baby A: Moderate 6-25 bpm (10/16/2016 10:00:Zamzam Bellavance, RNC) Variability Baby A: Moderate 6-25 bpm (10/16/2016 09:30:Zamzam Bellavance, RNC) Variability Baby A: Moderate 6-25 bpm (10/16/2016 09:00:Zamzam Bellavance, RNC) Variability Baby A: Moderate 6-25 bpm (10/16/2016 08:30:Zamzam Bellavance, RNC) Variability Baby A: Moderate 6-25 bpm (10/16/2016 08:00:Zamzam Bellavance, RNC) Variability Baby A: Moderate 6-25 bpm (10/16/2016 07:30:Zamzam Bellavance, RNC) Variability Baby A: Moderate 6-25 bpm (10/16/2016 07:00:Filemon Ribeiro RN) Variability Baby A: Moderate 6-25 bpm (10/16/2016 06:45:Filemon Ribeiro RN) Variability Baby A: Moderate 6-25 bpm (10/16/2016 06:30:Filemon Ribeiro RN) Variability Baby A: Moderate 6-25 bpm (10/16/2016 06:15:Filemon Ribeiro RN) Variability Baby A: Moderate 6-25 bpm (10/16/2016 06:00:Filemon Ribeiro RN) Variability Baby A: Moderate 6-25 bpm (10/16/2016 05:45:Filemon Ribeiro RN) Variability Baby A: Moderate 6-25 bpm (10/16/2016 05:30:Filemon Ribeiro RN) Variability Baby A: Moderate 6-25 bpm (10/16/2016 05:15:Mary Villanueva RN) Variability Baby A: Moderate 6-25 bpm (10/16/2016 05:00:Mary Villanueva RN) Variability Baby A: Moderate 6-25 bpm (10/16/2016 04:45:Mary Villanueva RN) Variability Baby A: Moderate 6-25 bpm (10/16/2016 04:30:Mary Villanueva RN) Variability Baby A: Moderate 6-25 bpm (10/16/2016 04:15:Mary Villanueva RN) Variability Baby A: Moderate 6-25 bpm (10/16/2016 04:00:Mary Villanueva RN) Variability Baby A: Moderate 6-25 bpm (10/16/2016 03:45:Mary Villanueva RN) Variability Baby A: Moderate 6-25 bpm (10/16/2016 03:30:Mary Villanueva RN) Variability Baby A: Moderate 6-25 bpm (10/16/2016 03:15:Mary Villanueva RN) Accelerations Baby A: 15X15 (10/17/2016 09:00:Francine Ramos RN) Accelerations Baby A: 15X15 (10/17/2016 08:30:Francine Ramos RN) Accelerations Baby A: 15X15 (10/17/2016 08:00:Francine Ramos RN) Accelerations Baby A: 15X15 (10/17/2016 07:30:Francine Ramos RN) Accelerations Baby A: None (10/17/2016 07:00:Lara Gilbert RN) Accelerations Baby A: None (10/17/2016 06:30:Lara Gilbert RN) Accelerations Baby A: 10X10 (10/17/2016 06:00:Lara Gilbert RN) Accelerations Baby A: 15X15 (10/17/2016 05:30:Lara Gilbert RN) Accelerations Baby A: 15X15 (10/17/2016 05:00:Lara Gilbert RN) Accelerations Baby A: 15X15 (10/17/2016 04:30:Lara Gilbert RN) Accelerations Baby A: 15X15 (10/17/2016 04:00:Lara Gilbert RN) Accelerations Baby A: 15X15 (10/17/2016 03:30:Lara Gilbert RN) Accelerations Baby A: None (10/17/2016 03:00:Lara Gilbert RN) Accelerations Baby A: 15X15 (10/17/2016 02:30:Lara Gilbert RN) Accelerations Baby A: 15X15 (10/17/2016 02:00:Lara Gilbert RN) Accelerations Baby A: 15X15 (10/17/2016 01:30:Lara Gilbert RN) Accelerations Baby A: 15X15 (10/17/2016 01:00:Lara Gilbert RN) Accelerations Baby A: 15X15 (10/17/2016 00:30:Lara Gilbert RN) Accelerations Baby A: 15X15 (10/17/2016 00:00:Lara Gilbert RN) Accelerations Baby A: 15X15 (10/16/2016 23:30:Lara Glibert RN) Accelerations Baby A: 15X15 (10/16/2016 23:00:Lara Gilbert RN) Accelerations Baby A: 15X15 (10/16/2016 22:30:Lara Gilbert RN) Accelerations Baby A: 15X15 (10/16/2016 22:00:Lara Gilbert RN) Accelerations Baby A: 15X15 (10/16/2016 21:30:Lina Thomson RN) Accelerations Baby A: 15X15 (10/16/2016 21:00:Lara Gilbert RN) Accelerations Baby A: None (10/16/2016 20:30:Lara Gilbert RN) Accelerations Baby A: 10X10 (10/16/2016 20:00:Lara Gilbert RN) Accelerations Baby A: 15X15 (10/16/2016 19:30:Lara Gilbert, RN) Accelerations Baby A: 15X15 (10/16/2016 19:00:Zamzam Bellavance, RNC) Accelerations Baby A: 15X15 (10/16/2016 18:30:Zamzam Bellavance, RNC) Accelerations Baby A: 15X15 (10/16/2016 18:00:Zamzam Bellavance, RNC) Accelerations Baby A: 15X15 (10/16/2016 17:30:Zamzam Bellavance, RNC) Accelerations Baby A: 15X15 (10/16/2016 17:00:Zamzam Bellavance, RNC) Accelerations Baby A: 15X15 (10/16/2016 16:30:Zamzam Bellavance, RNC) Accelerations Baby A: 15X15 (10/16/2016 16:00:Zamzam Bellavance, RNC) Accelerations Baby A: 15X15 (10/16/2016 15:30:Zamzam Bellavance, RNC) Accelerations Baby A: 15X15 (10/16/2016 15:00:Zamzam Bellavance, RNC) Accelerations Baby A: 15X15 (10/16/2016 14:30:Zamzam Bellavance, RNC) Accelerations Baby A: 15X15 (10/16/2016 14:00:Zamzam Bellavance, RNC) Accelerations Baby A: 15X15 (10/16/2016 13:37:Zamzam Bellavance, RNC) Accelerations Baby A: 15X15 (10/16/2016 13:00:Zamzam Bellavance, RNC) Accelerations Baby A: 15X15 (10/16/2016 12:30:Zamzam Bellavance, RNC) Accelerations Baby A: 15X15 (10/16/2016 12:00:Zamzam Bellavance, RNC) Accelerations Baby A: 15X15 (10/16/2016 11:30:Zamzam Bellavance, RNC) Accelerations Baby A: 15X15 (10/16/2016 11:00:Zamzam Bellavance, RNC) Accelerations Baby A: 15X15 (10/16/2016 10:30:Zamzam Bellavance, RNC) Accelerations Baby A: 15X15 (10/16/2016 10:00:Zamzam Bellavance, RNC) Accelerations Baby A: 15X15 (10/16/2016 09:30:Zamzam Bellavance, RNC) Accelerations Baby A: 15X15 (10/16/2016 09:00:Zamzam Bellavance, RNC) Accelerations Baby A: 15X15 (10/16/2016 08:30:Zamzam Bellavance, RNC) Accelerations Baby A: 15X15 (10/16/2016 08:00:Zamzam Bellavance, RNC) Accelerations Baby A: 15X15 (10/16/2016 07:30:Zamzam Bellavance, RNC) Accelerations Baby A: 15X15 (10/16/2016 07:00:Filemon Ribeiro RN) Accelerations Baby A: 10X10 (10/16/2016 06:45:Filemon Ribeiro RN) Accelerations Baby A: 15X15 (10/16/2016 06:30:Filemon Ribeiro RN) Accelerations Baby A: 10X10 (10/16/2016 06:15:Filemon Ribeiro RN) Accelerations Baby A: None (10/16/2016 06:00:Filemon Ribeiro RN) Accelerations Baby A: 10X10 (10/16/2016 05:45:Filemon Ribeiro RN) Accelerations Baby A: 15X15 (10/16/2016 05:30:Filemon Ribeiro RN) Accelerations Baby A: 15X15 (10/16/2016 05:15:Mary Villanueva RN) Accelerations Baby A: 15X15 (10/16/2016 04:45:Mary Villanueva RN) Accelerations Baby A: 15X15 (10/16/2016 04:30:Mary Villanueva RN) Accelerations Baby A: 15X15 (10/16/2016 04:00:Mary Villanueva RN) Accelerations Baby A: 15X15 (10/16/2016 03:45:Mary Villanueva RN) Accelerations Baby A: 15X15 (10/16/2016 03:30:Mary Villanueva RN) Decelerations Baby A: None (10/17/2016 09:00:Francine Ramos RN) Decelerations Baby A: None (10/17/2016 08:30:Francine Ramos RN) Decelerations Baby A: None (10/17/2016 08:00:Francine Ramos RN) Decelerations Baby A: None (10/17/2016 07:30:Francine Ramos RN) Decelerations Baby A: None (10/17/2016 07:00:Lara Gilbert RN) Decelerations Baby A: None (10/17/2016 06:30:Lara Gilbert RN) Decelerations Baby A: None (10/17/2016 06:00:Lara Gilbert RN) Decelerations Baby A: None (10/17/2016 05:30:Lara Gilbert RN) Decelerations Baby A: None (10/17/2016 05:00:Lara Gilbert RN) Decelerations Baby A: None (10/17/2016 04:30:Lara Gilbert RN) Decelerations Baby A: None (10/17/2016 04:00:Lara Gilbert RN) Decelerations Baby A: None (10/17/2016 03:30:Lara Gilbert RN) Decelerations Baby A: None (10/17/2016 03:00:Lara Gilbert RN) Decelerations Baby A: None (10/17/2016 02:30:Lara Gilbert RN) Decelerations Baby A: None (10/17/2016 02:00:Lara Gilbert RN) Decelerations Baby A: None (10/17/2016 01:30:Lara Gilbert RN) Decelerations Baby A: None (10/17/2016 01:00:Lara Gilbert RN) Decelerations Baby A: None (10/17/2016 00:30:Lara Gilbert RN) Decelerations Baby A: None (10/17/2016 00:00:Lara Gilbert RN) Decelerations Baby A: None (10/16/2016 23:30:Lara Gilbert RN) Decelerations Baby A: None (10/16/2016 23:00:Lara Gilbert RN) Decelerations Baby A: None (10/16/2016 22:30:Lara Gilbert RN) Decelerations Baby A: Early (10/16/2016 22:00:Lara Gilbert RN) Decelerations Baby A: None (10/16/2016 21:30:Lina Thomson RN) Decelerations Baby A: None (10/16/2016 21:00:Lara Gilbert RN) Decelerations Baby A: None (10/16/2016 20:30:Lara Gilbert RN) Decelerations Baby A: None (10/16/2016 20:00:Lara Gilbert RN) Decelerations Baby A: None (10/16/2016 19:30:Lara Gilbert RN) Decelerations Baby A: None (10/16/2016 19:00:MICHELLE King) Decelerations Baby A: None (10/16/2016 18:30:MICHELLE King) Decelerations Baby A: None (10/16/2016 18:00:MICHELLE King) Decelerations Baby A: None (10/16/2016 17:30:MICHELLE King) Decelerations Baby A: None (10/16/2016 17:00:MICHELLE King) Decelerations Baby A: None (10/16/2016 16:30:MICHELLE King) Decelerations Baby A: None (10/16/2016 16:00:MICHELLE King) Decelerations Baby A: None (10/16/2016 15:30:MICHELLE King) Decelerations Baby A: None (10/16/2016 15:00:Zamzam Bellavance, RNC) Decelerations Baby A: None (10/16/2016 14:30:Zamzam Bellavance, RNC) Decelerations Baby A: None (10/16/2016 14:00:Zamzam Bellavance, RNC) Decelerations Baby A: None (10/16/2016 13:37:Zamzam Bellavance, RNC) Decelerations Baby A: None (10/16/2016 13:00:Zamzam Bellavance, RNC) Decelerations Baby A: None (10/16/2016 12:30:Zamzam Bellavance, RNC) Decelerations Baby A: None (10/16/2016 12:00:Zamzam Bellavance, RNC) Decelerations Baby A: None (10/16/2016 11:30:Zamzam Bellavance, RNC) Decelerations Baby A: None (10/16/2016 11:00:Zamzam Bellavance, RNC) Decelerations Baby A: None (10/16/2016 10:30:Zamzam Bellavance, RNC) Decelerations Baby A: None (10/16/2016 10:00:Zamzam Bellavance, RNC) Decelerations Baby A: None (10/16/2016 09:30:Zamzam Bellavance, RNC) Decelerations Baby A: None (10/16/2016 09:00:Zamzam Bellavance, RNC) Decelerations Baby A: None (10/16/2016 08:30:Zamzam Bellavance, RNC) Decelerations Baby A: None (10/16/2016 08:00:Zamzam Bellavance, RNC) Decelerations Baby A: None (10/16/2016 07:30:Zamzam Bellavance, RNC) ADDITIONAL COMMENTS Assessment Flag: Admission Assessment (10/16/2016 05:00:QS system process) Assessment Flag: Admission Assessment (10/16/2016 03:00:QS system process)
--- NOTE | 2016-10-17 10:46 | L&D General Admission ---
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[employer] (10/16/2016 02:29:Filemon Ribeiro RN) Height (in): 65 (10/16/2016 02:38:QS system process) ALLERGIES Medication Allergy: No (10/16/2016 02:29:Filemon Ribeiro RN) Medication Allergies: No Known Allergies (09/25/2014) (11/09/2014 12:58:QS system process) Latex Allergy: No Latex Allergies (10/16/2016 02:29:Filemon Ribeiro RN) Food Allergies: None (10/16/2016 02:29:Filemon Ribeiro RN) Environmental Allergies: None (10/16/2016 02:29:Filemon Ribeiro RN) COMMUNICATION Primary Language: Azeri (10/16/2016 02:29:Filemon Ribeiro RN) DEMOGRAPHICS Address: [address] [place] [phone] (10/16/2016 02:27:QS system process) Address: [address] [place] [id number] (02/21/2016 14:02:QS system process) Address: [address] [place] [address] (01/27/2015 16:42:QS system process) Address: [address] [place] [address] (11/09/2014 12:58:QS system process) Zipcode: [id number] (02/21/2016 14:02:QS system process) Zipcode: [phone] (01/27/2015 16:42:QS system process) Zipcode: [id number] (11/09/2014 12:58:QS system process) Home (10/16/2016 02:27:QS system process) Home (01/27/2015 16:42:QS system process) Home (11/09/2014 12:58:QS system process) Work (10/16/2016 02:27:QS system process) N: [phone] (11/09/2014 12:58:QS system process) Next of Kin Name: HENRY GOODEN (11/09/2014 12:58:QS system process) Next of Kin (10/16/2016 02:27:QS system process) Next of Kin (01/27/2015 16:42:QS system process) Next of Kin (11/09/2014 12:58:QS system process) Next of Kin Relationship: SPO (11/09/2014 12:58:QS system process) Date of : 1990 (11/09/2014 12:58:QS system process) Marital Status: (11/09/2014 12:58:QS system process) Sex: Female (11/09/2014 12:58:QS system process) Race: (11/09/2014 12:58:QS system process) Ethnicity: Non- or (11/09/2014 12:58:QS system process) Religious: None (11/09/2014 12:58:QS system process) DRUG AND ALCOHOL USE Alcohol: No (10/16/2016 02:29:Filemon Ribeiro RN) Cigarettes: Never Smoker. [id number] (10/16/2016 02:29:Filemon Ribeiro RN) Marijuana: No (10/16/2016 02:29:Filemon Ribeiro RN) Cocaine: No (10/16/2016 02:29:Filemon Ribeiro RN) Other Illicit Drugs: No (10/16/2016 02:29:Filemon Ribeiro RN) VACCINE HISTORY Influenza Vaccine: No (10/16/2016 02:29:Filemon Ribeiro RN) Pneumococcal Vaccine: No (10/16/2016 02:29:Filemon Ribeiro RN) Tetanus Vaccine: Uncertain (10/16/2016 02:29:Filemon Ribeiro RN) Tdap Vaccine: Yes (10/16/2016 02:29:Filemon Ribeiro RN) Tdap Date: 10-01-2016 (10/16/2016 02:29:Filemon Ribeiro RN) Hepatitis B Vaccine: Uncertain (10/16/2016 02:29:Filemon Ribeiro RN) Hr Analyst: [facility] (10/16/2016 02:29:Filemon Ribeiro RN) Feeding Preference: Formula (10/16/2016 02:29:Filemon Ribeiro RN) Benefit of Breast Feed Discussed: Yes (10/16/2016 02:29:Filemon Ribeiro RN) Circumcision: N/A (10/16/2016 02:29:Filemon Ribeiro RN) Classes Attended: No (10/16/2016 02:29:Filemon Ribeiro RN) Tubal Ligation: No (10/16/2016 02:29:Filemon Ribeiro RN) Tubal Authorization Signed: N/A (10/16/2016 02:29:Filemon Ribeiro RN) Consent: N/A (10/16/2016 02:29:Fielmon Ribeiro RN) Consent Signed: N/A (10/16/2016 02:29:Filemon Ribeiro RN) Pain Management Plans: Epidural (10/16/2016 02:29:Filemon Ribeiro RN) Plans for Labor and Delivery: None (10/16/2016 02:29:Filemon Ribeiro RN) Cultural/Spritual Practice: No (10/16/2016 02:29:Filemon Ribeiro RN) Spir/Cult Dietary Needs: No (10/16/2016 02:29:Filemon Ribeiro RN) LIVING SITUATION/DISCHARGE PLAN Living Arrangements: House (10/16/2016 02:29:Filemon Ribeiro RN) Adequate Access to:: Electric; Heat; Refrigeration; Plumbing/Running water; Phone; Transportation (10/16/2016 02:29:Filemon Ribeiro RN) WIC Program: No (10/16/2016 02:29:Filemon Ribeiro RN) Currently Using Commun Resources: No (10/16/2016 02:29:Filemon Ribeiro RN) Outside Agency/Veterinarian Helper: No (10/16/2016 02:29:Filemon Ribeiro RN) Car Seat for Discharge: Yes (10/16/2016 02:29:Filemon Ribeiro RN) Adoption Requested: No (10/16/2016 02:29:Filemon Ribeiro RN) Pt Contact w/ Post : N/A (10/16/2016 02:29:Filemon Ribeiro RN) LABS Blood Type: A Positive (10/16/2016 02:29:Lara Gilbert RN) Hemoglobin: 10.1 L (10/17/2016 06:53:QS system process) Hemoglobin: 11.3 L (10/16/2016 03:49:QS system process) Hemoglobin: 13.5 (05/05/2016 11:30:QS system process) Hemoglobin: 13.4 (07/28/2015 11:55:QS system process) Hematocrit: 30.6 L (10/17/2016 06:53:QS system process) Hematocrit: 34.4 L (10/16/2016 03:49:QS system process) Hematocrit: 40.4 (05/05/2016 11:30:QS system process) Hematocrit: 40.4 (07/28/2015 11:55:QS system process) MCV: 80 (10/17/2016 06:53:QS system process) MCV: 80 (10/16/2016 03:49:QS system process) MCV: 83 (05/05/2016 11:30:QS system process) MCV: 81 (07/28/2015 11:55:QS system process) Group Beta Strep: negative (10/16/2016 02:29:Lara Gilbert RN) Rubella: Immune (10/16/2016 02:29:Lara Gilbert RN) MEDICAL HISTORY Med Hx Hypertension: Yes (10/16/2016 02:29:Lara Gilbert RN)
--- NOTE | 2016-10-17 10:46 | L&D Flow Sheet ---
LD Flowsheet Datetime Report Generated by CPN: 10/17/2016 10:45 Datetime: 10/17/2016 09:05 Patient Care Comments: Monitors removed. Pt to be transferred to 2S via wheelchair (Francine Marhefka, RN) Datetime: 10/17/2016 09:00 Monitor Mode: External (Francine Marhefka, RN) Frequency (min): Pt denies (Francine Marhefka, RN) Quality: Mild (Francine Marhefka, RN) Resting Tone (Palpate): Relaxed (Francine Marhefka, RN) Monitor Mode: External US (Francine Marhefka, RN) FHR Baseline Rate : 125 (Francine Marhefka, RN) FHR Baseline Changes: No Baseline Change (Francine Marhefka, RN) Variability: Moderate 6-25 bpm (Francine Marhefka, RN) Accelerations: 15X15 (Francine Marhefka, RN) Decelerations: None (Francine Marhefka, RN) Datetime: 10/17/2016 08:55 NBP Sys/Eda/Mean (mmHg): 122 (QS system process) : 78 (QS system process) : 95 (QS system process) Pulse: 87 (QS system process) LaborFlag: Labor (QS system process) Datetime: 10/17/2016 08:40 NBP Sys/Eda/Mean (mmHg): 115 (QS system process) : 70 (QS system process) : 87 (QS system process) Pulse: 98 (QS system process) LaborFlag: Labor (QS system process) Datetime: 10/17/2016 08:30 Monitor Mode: External (Francine Marhefka, RN) Frequency (min): No ctxs noted/pt denies (Francine Marhefka, RN) Quality: Mild (Francine Marhefka, RN) Resting Tone (Palpate): Relaxed (Francine Marhefka, RN) Monitor Mode: External US (Francine Marhefka, RN) FHR Baseline Rate : 130 (Francine Marhefka, RN) FHR Baseline Changes: No Baseline Change (Francine Marhefka, RN) Variability: Moderate 6-25 bpm (Francine Marhefka, RN) Accelerations: 15X15 (Francine Marhefka, RN) Decelerations: None (Francine Marhefka, RN) Datetime: 10/17/2016 08:27 Level of Consciousness: Fully Conscious (Francine Marhefka, RN) DTR's/Clonus: DTRs 2+; No Clonus (Francine Marhefka, RN) Headache: Generalized (Francine Marhefka, RN) Breath Sounds, Left: Clear and Equal (Francine Marciscofka, RN) Breath Sounds, Right: Clear and Equal (Francine Marhefka, RN) Nausea/Vomiting: Denies (Francine Marciscofka, RN) RUQ Epigastric Pain: Denies (Francine Stacyfka, RN) Datetime: 10/17/2016 08:25 NBP Sys/Eda/Mean (mmHg): 113 (QS system process) : 70 (QS system process) : 87 (QS system process) Pulse: 88 (QS system process) LaborFlag: Labor (QS system process) Datetime: 10/17/2016 08:22 I/O Interventions: [place] Discontinued (Francine Stacyfka, RN) Datetime: 10/17/2016 08:10 NBP Sys/Eda/Mean (mmHg): 112 (QS system process) : 67 (QS system process) : 85 (QS system process) Pulse: 90 (QS system process) LaborFlag: Labor (QS system process) Datetime: 10/17/2016 08:00 Monitor Mode: External (Francine Marhefka, RN) Frequency (min): No ctxs noted (Francine Marhefka, RN) Quality: Mild (Francine Marhefka, RN) Resting Tone (Palpate): Relaxed (Francine Marhefka, RN) Monitor Mode: External US (Francine Marhefka, RN) FHR Baseline Rate : 130 (Francine Marhefka, RN) FHR Baseline Changes: No Baseline Change (Francine Marhefka, RN) Variability: Moderate 6-25 bpm (Francine Marhefka, RN) Accelerations: 15X15 (Francine Marhefka, RN) Decelerations: None (Francine Marhefka, RN) Datetime: 10/17/2016 07:55 NBP Sys/Eda/Mean (mmHg): 111 (QS system process) : 65 (QS system process) : 82 (QS system process) Pulse: 82 (QS system process) LaborFlag: Labor (QS system process) Datetime: 10/17/2016 07:47 Monitor Interventions for FHR: Ultrasound Adjusted (Francine Marhefka, RN) Comments: RN @ bedside adjusting ultrasound (Francine Marciscofka, RN) Datetime: 10/17/2016 07:45 Magnesium/Antihypertensives: Magnesium Sulfate Discontinued (Francine Marhefka, RN) Datetime: 10/17/2016 07:43 Communication Comments: Order received to turn patient's Magnesium Sulfate off and transfer to the floor. (Francine Ramos RN) Datetime: 10/17/2016 07:40 NBP Sys/Eda/Mean (mmHg): 97 (QS system process) : 56 (QS system process) : 71 (QS system process) Pulse: 83 (QS system process) LaborFlag: Labor (QS system process) Datetime: 10/17/2016 07:30 Monitor Mode: External; Palpation (Francine Ramos RN) Frequency (min): No ctxs noted (Francine Ramos RN) Quality: Mild (Francine Ramos RN) Resting Tone (Palpate): Relaxed (Francine Marhefka, RN) Monitor Mode: External US (Francine Marhefka, RN) FHR Baseline Rate : 130 (Francine Marhefka, RN) FHR Baseline Changes: No Baseline Change (Francine Marhefka, RN) Variability: Moderate 6-25 bpm (Francine Marhefka, RN) Accelerations: 15X15 (Francine Marhefka, RN) Decelerations: None (Francine Marhefka, RN) Datetime: 10/17/2016 07:25 NBP Sys/Eda/Mean (mmHg): 102 (QS system process) : 60 (QS system process) : 76 (QS system process) Pulse: 85 (QS system process) LaborFlag: Labor (QS system process) Datetime: 10/17/2016 07:20 Communication: Report Given to @ R Rachel RN (Lara Gilbert RN) Datetime: 10/17/2016 07:10 NBP Sys/Eda/Mean (mmHg): 106 (QS system process) : 64 (QS system process) : 80 (QS system process) Pulse: 82 (QS system process) LaborFlag: Labor (QS system process) Datetime: 10/17/2016 07:00 Monitor Mode: External (Lara Ledgerwood, RN) Frequency (min): none (Lara Ledgerwood, RN) Resting Tone (Palpate): Relaxed (Lara Ledgerwood, RN) Monitor Mode: External US (Lara Ledgerwood, RN) FHR Baseline Rate : 125 (Lara Ledgerwood, RN) FHR Baseline Changes: No Baseline Change (Lara Ledgerwood, RN) Variability: Moderate 6-25 bpm (Lara Ledgerwood, RN) Accelerations: None (Lara Ledgerwood, RN) Decelerations: None (Lara Ledgerwood, RN) Level of Consciousness: Fully Conscious (Lara Ledgerwood, RN) DTR's/Clonus: DTRs 2+; No Clonus (Lara Ledgerwood, RN) Headache: Generalized (Lara Ledgerwood, RN) Breath Sounds, Left: Clear and Equal (Lara Ledgerwood, RN) Breath Sounds, Right: Clear and Equal (Lara Ledgerwood, RN) Nausea/Vomiting: Denies (Lara Ledgerwood, RN) RUQ Epigastric Pain: Denies (Lara Nolascogerwood, RN) Datetime: 10/17/2016 06:55 NBP Sys/Eda/Mean (mmHg): 114 (QS system process) : 69 (QS system process) : 87 (QS system process) Pulse: 86 (QS system process) Respirations: 14 (Lara Gilbert, RN) LaborFlag: Labor (QS system process) Datetime: 10/17/2016 06:40 NBP Sys/Eda/Mean (mmHg): 109 (QS system process) : 64 (QS system process) : 82 (QS system process) Pulse: 82 (QS system process) LaborFlag: Labor (QS system process) Datetime: 10/17/2016 06:30 Monitor Mode: External (Lara Ledgerwood, RN) Frequency (min): none (Lara Ledgerwood, RN) Resting Tone (Palpate): Relaxed (Lara Ledgerwood, RN) Monitor Mode: External US (Lara Ledgerwood, RN) FHR Baseline Rate : 125 (Lara Ledgerwood, RN) FHR Baseline Changes: No Baseline Change (Lara Ledgerwood, RN) Variability: Minimal - Undetectable to <=5 bpm (Lara Ledgerwood, RN) Accelerations: None (Lara Ledgerwood, RN) Decelerations: None (Lara Ledgerwood, RN) Magnesium/Antihypertensives: Magnesium Sulfate IV (Gm/hr) @ 2 (Lara Ledgerwood, RN) Datetime: 10/17/2016 06:25 NBP Sys/Eda/Mean (mmHg): 119 (QS system process) : 74 (QS system process) : 92 (QS system process) Pulse: 82 (QS system process) LaborFlag: Labor (QS system process) Datetime: 10/17/2016 06:20 Medication Comments: Azithromycin 500 mg/250 ml given. (Lara Ledgerwood, RN) Datetime: 10/17/2016 06:10 NBP Sys/Eda/Mean (mmHg): 121 (QS system process) : 74 (QS system process) : 93 (QS system process) Pulse: 82 (QS system process) Temperature (F): 97.4 (Lara Ledgerwood, RN) Temperature (C): 36.3 (QS system process) Temperature Route: Oral (Lara Ledgerwood, RN) LaborFlag: Labor (QS system process) Datetime: 10/17/2016 06:00 Monitor Mode: External (Lara Ledgerwood, RN) Frequency (min): none (Lara Ledgerwood, RN) Resting Tone (Palpate): Relaxed (Lara Ledgerwood, RN) Monitor Mode: External US (Lara Ledgerwood, RN) FHR Baseline Rate : 125 (Lara Ledgerwood, RN) FHR Baseline Changes: No Baseline Change (Lara Ledgerwood, RN) Variability: Moderate 6-25 bpm (Lara Ledgerwood, RN) Accelerations: 10X10 (Lara Ledgerwood, RN) Decelerations: None (Lara Ledgerwood, RN) Level of Consciousness: Fully Conscious (Lara Ledgerwood, RN) DTR's/Clonus: DTRs 2+; No Clonus (Lara Ledgerwood, RN) Headache: Denies (Lara Ledgerwood, RN) Breath Sounds, Left: Clear and Equal (Lara Ledgerwood, RN) Breath Sounds, Right: Clear and Equal (Lara Ledgerwood, RN) Nausea/Vomiting: Denies (Lara Ledgerwood, RN) RUQ Epigastric Pain: Denies (Lara Ledgerwood, RN) Magnesium/Antihypertensives: Magnesium Sulfate IV (Gm/hr) @ (Annotations: 2) (Lara Gauravgerwood, RN) Datetime: 10/17/2016 05:55 NBP Sys/Eda/Mean (mmHg): 119 (QS system process) : 71 (QS system process) : 90 (QS system process) Pulse: 80 (QS system process) LaborFlag: Labor (QS system process) Datetime: 10/17/2016 05:40 NBP Sys/Eda/Mean (mmHg): 112 (QS system process) : 66 (QS system process) : 84 (QS system process) Pulse: 75 (QS system process) LaborFlag: Labor (QS system process) Datetime: 10/17/2016 05:30 Monitor Mode: External (Lara Ledgerwood, RN) Frequency (min): none (Lara Ledgerwood, RN) Resting Tone (Palpate): Relaxed (Lara Ledgerwood, RN) Monitor Mode: External US (Lara Ledgerwood, RN) FHR Baseline Rate : 125 (Lara Ledgerwood, RN) FHR Baseline Changes: No Baseline Change (Lara Ledgerwood, RN) Variability: Moderate 6-25 bpm (Lara Ledgerwood, RN) Accelerations: 15X15 (Lara Ledgerwood, RN) Decelerations: None (Lara Ledgerwood, RN) Magnesium/Antihypertensives: Magnesium Sulfate IV (Gm/hr) @ (Annotations: 2) (Lara Ledgerwood, RN) Datetime: 10/17/2016 05:25 NBP Sys/Eda/Mean (mmHg): 115 (QS system process) : 70 (QS system process) : 88 (QS system process) Pulse: 77 (QS system process) LaborFlag: Labor (QS system process) Datetime: 10/17/2016 05:10 NBP Sys/Eda/Mean (mmHg): 116 (QS system process) : 69 (QS system process) : 87 (QS system process) Pulse: 75 (QS system process) LaborFlag: Labor (QS system process) Datetime: 10/17/2016 05:00 Monitor Mode: External (Lara Ledgerwood, RN) Frequency (min): none (Lara Ledgerwood, RN) Resting Tone (Palpate): Relaxed (Lararacheal Gilbert, RN) Monitor Mode: External US (Lara Ofelia, RN) FHR Baseline Rate : 135 (Lara Ledgerwood, RN) FHR Baseline Changes: No Baseline Change (Lara Ledgerwood, RN) Variability: Moderate 6-25 bpm (Lara Ledgerwood, RN) Accelerations: 15X15 (Lara Ledgerwood, RN) Decelerations: None (Lara Ledgerwood, RN) Level of Consciousness: Fully Conscious (Lara Ledgerwood, RN) DTR's/Clonus: DTRs 2+; No Clonus (Lara Ledgerwood, RN) Headache: Denies (Lara Ledgerwood, RN) Breath Sounds, Left: Clear and Equal (Lara Ledgerwood, RN) Breath Sounds, Right: Clear and Equal (Lara Ledgerwood, RN) Nausea/Vomiting: Denies (Lara Ledgerwood, RN) RUQ Epigastric Pain: Denies (Lara Ledgerwood, RN) Magnesium/Antihypertensives: Magnesium Sulfate IV (Gm/hr) @ (Annotations: 2) (Lara Ledgerwood, RN) Datetime: 10/17/2016 04:55 NBP Sys/Eda/Mean (mmHg): 118 (QS system process) : 72 (QS system process) : 90 (QS system process) Pulse: 77 (QS system process) LaborFlag: Labor (QS system process) Datetime: 10/17/2016 04:40 NBP Sys/Eda/Mean (mmHg): 126 (QS system process) : 77 (QS system process) : 97 (QS system process) Pulse: 88 (QS system process) Respirations: 15 (Lara Gilbert, ZEENAT) LaborFlag: Labor (QS system process) Datetime: 10/17/2016 04:31 Steroids: Celestone 12mg IM - Dose 2 (Lara Gilbert, RN) Antibiotics: Penicillin IV (Units) @ [id number] (Lara Gilbert, ZEENAT) Medication Comments: R Hip (Lara Gilbert, RN) Datetime: 10/17/2016 04:30 Monitor Mode: External (Lara Gilbert, RN) Frequency (min): none (Lara Gilbert, RN) Resting Tone (Palpate): Relaxed (Lara Gilbert, ZEENAT) Monitor Mode: External US (Lara Ledgerwood, RN) FHR Baseline Rate : 125 (Lara Ledgerwood, RN) FHR Baseline Changes: No Baseline Change (Lara Ledgerwood, RN) Variability: Moderate 6-25 bpm (Lara Ledgerwood, RN) Accelerations: 15X15 (Lara Ledgerwood, RN) Decelerations: None (Lara Ledgerwood, RN) Magnesium/Antihypertensives: Magnesium Sulfate IV (Gm/hr) @ (Annotations: 2) (Lara Ledgerwood, RN) Datetime: 10/17/2016 04:25 NBP Sys/Eda/Mean (mmHg): 122 (QS system process) : 73 (QS system process) : 93 (QS system process) Pulse: 78 (QS system process) LaborFlag: Labor (QS system process) Datetime: 10/17/2016 04:10 NBP Sys/Eda/Mean (mmHg): 120 (QS system process) : 67 (QS system process) : 89 (QS system process) Pulse: 78 (QS system process) LaborFlag: Labor (QS system process) Datetime: 10/17/2016 04:00 Monitor Mode: External (Lara Ledgerwood, RN) Frequency (min): none (Lara Ledgerwood, RN) Resting Tone (Palpate): Relaxed (Lara Ledgerwood, RN) Monitor Mode: External US (Lara Ledgerwood, RN) FHR Baseline Rate : 125 (Lara Ledgerwood, RN) FHR Baseline Changes: No Baseline Change (Lara Ledgerwood, RN) Variability: Moderate 6-25 bpm (Lara Ledgerwood, RN) Accelerations: 15X15 (Lara Ledgerwood, RN) Decelerations: None (Lara Ledgerwood, RN) Level of Consciousness: Fully Conscious (Lara Ledgerwood, RN) DTR's/Clonus: DTRs 2+; No Clonus (Lara Ledgerwood, RN) Headache: Denies (Lara Ledgerwood, RN) Breath Sounds, Left: Clear and Equal (Lara Ledgerwood, RN) Breath Sounds, Right: Clear and Equal (Lara Ledgerwood, RN) Nausea/Vomiting: Denies (Lara Ledgerwood, RN) RUQ Epigastric Pain: Denies (Lara Ledgerwood, RN) Magnesium/Antihypertensives: Magnesium Sulfate IV (Gm/hr) @ (Annotations: 2) (Lara Ledgerwood, RN) Datetime: 10/17/2016 03:55 NBP Sys/Eda/Mean (mmHg): 118 (QS system process) : 67 (QS system process) : 87 (QS system process) Pulse: 75 (QS system process) LaborFlag: Labor (QS system process) Datetime: 10/17/2016 03:40 NBP Sys/Eda/Mean (mmHg): 115 (QS system process) : 69 (QS system process) : 87 (QS system process) Pulse: 75 (QS system process) LaborFlag: Labor (QS system process) Datetime: 10/17/2016 03:30 Monitor Mode: External (Lara Ledgerwood, RN) Frequency (min): none (Lara Ledgerwood, RN) Resting Tone (Palpate): Relaxed (Lararacheal Nolascogerbrandon, RN) Monitor Mode: External US (Lara Gauravgerwood, RN) FHR Baseline Rate : 120 (Lara Ledgerwood, RN) FHR Baseline Changes: No Baseline Change (Lara Ledgerwood, RN) Variability: Moderate 6-25 bpm (Lara Ledgerwood, RN) Accelerations: 15X15 (Lara Ledgerwood, RN) Decelerations: None (Lara Ledgerwood, RN) Magnesium/Antihypertensives: Magnesium Sulfate IV (Gm/hr) @ (Annotations: 2) (Lara Ledgerwood, RN) Datetime: 10/17/2016 03:25 NBP Sys/Eda/Mean (mmHg): 124 (QS system process) : 74 (QS system process) : 94 (QS system process) Pulse: 80 (QS system process) LaborFlag: Labor (QS system process) Datetime: 10/17/2016 03:10 NBP Sys/Eda/Mean (mmHg): 121 (QS system process) : 73 (QS system process) : 92 (QS system process) Pulse: 81 (QS system process) LaborFlag: Labor (QS system process) Datetime: 10/17/2016 03:00 Monitor Mode: External (Lara Ledgerwood, RN) Frequency (min): none (Lara Ledgerwood, RN) Resting Tone (Palpate): Relaxed (Lara Ledgerwood, RN) Monitor Mode: External US (Lara Ledgerwood, RN) FHR Baseline Rate : 120 (Lara Ledgerwood, RN) FHR Baseline Changes: No Baseline Change (Lara Ledgerwood, RN) Variability: Minimal - Undetectable to <=5 bpm (Lara Ledgerwood, RN) Accelerations: None (Lara Ledgerwood, RN) Decelerations: None (Lara Ledgerwood, RN) Level of Consciousness: Fully Conscious (Lara Ledgerwood, RN) DTR's/Clonus: DTRs 2+; No Clonus (Lara Ledgerwood, RN) Headache: Denies (Lara Ledgerwood, RN) Breath Sounds, Right: Clear and Equal (Lara Ledgerwood, RN) Nausea/Vomiting: Denies (Lara Ledgerwood, RN) RUQ Epigastric Pain: Denies (Lara Ledgerwood, RN) Magnesium/Antihypertensives: Magnesium Sulfate IV (Gm/hr) @ (Annotations: 2) (Lara Ledgerwood, RN) Datetime: 10/17/2016 02:55 NBP Sys/Eda/Mean (mmHg): 116 (QS system process) : 68 (QS system process) : 87 (QS system process) Pulse: 77 (QS system process) LaborFlag: Labor (QS system process) Datetime: 10/17/2016 02:40 NBP Sys/Eda/Mean (mmHg): 119 (QS system process) : 70 (QS system process) : 89 (QS system process) Pulse: 80 (QS system process) Temperature (F): 97.8 (Lara Ledgerwood, RN) Temperature (C): 36.6 (QS system process) Temperature Route: Oral (Lara Ledgerwood, RN) LaborFlag: Labor (QS system process) Datetime: 10/17/2016 02:30 Monitor Mode: External (Lara Ledgerwood, RN) Frequency (min): none (Lara Ledgerwood, RN) Resting Tone (Palpate): Non Relaxed (Lara Ledgerwood, RN) Monitor Mode: External US (Lara Gilbert, RN) FHR Baseline Rate : 125 (Lara Ledgerwood, RN) FHR Baseline Changes: No Baseline Change (Lara Ledgerwood, RN) Variability: Moderate 6-25 bpm (Lara Ledgerwood, RN) Accelerations: 15X15 (Lara Ledgerwood, RN) Decelerations: None (Lara Ledgerwood, RN) Magnesium/Antihypertensives: Magnesium Sulfate IV (Gm/hr) @ (Annotations: 2) (Lara Ledgerwood, RN) Datetime: 10/17/2016 02:25 NBP Sys/Eda/Mean (mmHg): 113 (QS system process) : 69 (QS system process) : 85 (QS system process) Pulse: 73 (QS system process) LaborFlag: Labor (QS system process) Datetime: 10/17/2016 02:10 NBP Sys/Eda/Mean (mmHg): 111 (QS system process) : 73 (QS system process) : 86 (QS system process) Pulse: 71 (QS system process) LaborFlag: Labor (QS system process) Datetime: 10/17/2016 02:00 Monitor Mode: External (Lara Ledgerwood, RN) Frequency (min): none (Lara Ledgerwood, RN) Resting Tone (Palpate): Relaxed (Lara Ledgerwood, RN) Monitor Mode: External US (Lara Ledgerwood, RN) FHR Baseline Rate : 120 (Lara Ledgerwood, RN) FHR Baseline Changes: No Baseline Change (Lara Ledgerwood, RN) Variability: Moderate 6-25 bpm (Lara Ledgerwood, RN) Accelerations: 15X15 (Lara Ledgerwood, RN) Decelerations: None (Lara Ledgerwood, RN) Level of Consciousness: Fully Conscious (Lara Ledgerwood, RN) DTR's/Clonus: DTRs 2+; No Clonus (Lara Ledgerwood, RN) Headache: Denies (Lara Ledgerwood, RN) Breath Sounds, Left: Clear and Equal (Lara Ledgerwood, RN) Breath Sounds, Right: Clear and Equal (Lara Ledgerwood, RN) Nausea/Vomiting: Denies (Lara Ledgerwood, RN) RUQ Epigastric Pain: Denies (Lara Ledgerwood, RN) Magnesium/Antihypertensives: Magnesium Sulfate IV (Gm/hr) @ (Annotations: 2) (Lara Ledgerwood, RN) Datetime: 10/17/2016 01:55 NBP Sys/Eda/Mean (mmHg): 115 (QS system process) : 78 (QS system process) : 92 (QS system process) Pulse: 75 (QS system process) LaborFlag: Labor (QS system process) Datetime: 10/17/2016 01:40 NBP Sys/Eda/Mean (mmHg): 115 (QS system process) : 69 (QS system process) : 87 (QS system process) Pulse: 73 (QS system process) LaborFlag: Labor (QS system process) Datetime: 10/17/2016 01:30 Monitor Mode: External (Lara Ofelia, RN) Frequency (min): none (Lara Ofelia, RN) Resting Tone (Palpate): Relaxed (Lara Gilbert, RN) Monitor Mode: External US (Lara Ledgerwood, RN) FHR Baseline Rate : 120 (Lara Ledgerwood, RN) FHR Baseline Changes: No Baseline Change (Lara Ledgerwood, RN) Variability: Moderate 6-25 bpm (Lara Ledgerwood, RN) Accelerations: 15X15 (Lara Ledgerwood, RN) Decelerations: None (Lara Ledgerwood, RN) Magnesium/Antihypertensives: Magnesium Sulfate IV (Gm/hr) @ (Annotations: 2) (Lara Ledgerwood, RN) Datetime: 10/17/2016 01:25 NBP Sys/Eda/Mean (mmHg): 116 (QS system process) : 69 (QS system process) : 88 (QS system process) Pulse: 73 (QS system process) LaborFlag: Labor (QS system process) Datetime: 10/17/2016 01:10 NBP Sys/Eda/Mean (mmHg): 117 (QS system process) : 72 (QS system process) : 89 (QS system process) Pulse: 77 (QS system process) LaborFlag: Labor (QS system process) Datetime: 10/17/2016 01:00 Monitor Mode: External (Lara Ledgerwood, RN) Frequency (min): none (Lara Ledgerwood, RN) Resting Tone (Palpate): Relaxed (Lara Ledgerwood, RN) Monitor Mode: External US (Lara Ledgerwood, RN) FHR Baseline Rate : 120 (Lara Ledgerwood, RN) FHR Baseline Changes: No Baseline Change (Lara Ledgerwood, RN) Variability: Moderate 6-25 bpm (Lara Ledgerwood, RN) Accelerations: 15X15 (Lara Ledgerwood, RN) Decelerations: None (Lara Ledgerwood, RN) Level of Consciousness: Fully Conscious (Lara Ledgerwood, RN) DTR's/Clonus: DTRs 2+; No Clonus (Lara Ledgerwood, RN) Headache: Denies (Lara Ledgerwood, RN) Breath Sounds, Left: Clear and Equal (Lara Ledgerwood, RN) Breath Sounds, Right: Clear and Equal (Lara Ledgerwood, RN) Nausea/Vomiting: Denies (Lara Ledgerwood, RN) RUQ Epigastric Pain: Denies (Lara Ledgerwood, RN) Magnesium/Antihypertensives: Magnesium Sulfate IV (Gm/hr) @ (Annotations: 2) (Lara Ledgerwood, RN) Antibiotics: Penicillin IV (Units) @ [id number] (Lara Ledgerwood, RN) Datetime: 10/17/2016 00:55 NBP Sys/Eda/Mean (mmHg): 117 (QS system process) : 70 (QS system process) : 88 (QS system process) Pulse: 71 (QS system process) LaborFlag: Labor (QS system process) Datetime: 10/17/2016 00:40 NBP Sys/Eda/Mean (mmHg): 119 (QS system process) : 70 (QS system process) : 91 (QS system process) Pulse: 80 (QS system process) LaborFlag: Labor (QS system process) Datetime: 10/17/2016 00:30 Monitor Mode: External (Lara Ledgerwood, RN) Frequency (min): none (Lara Ledgerwood, RN) Resting Tone (Palpate): Relaxed (Lara Ledgerwood, RN) Monitor Mode: External US (Lara Ledgerwood, RN) FHR Baseline Rate : 120 (Lara Ledgerwood, RN) FHR Baseline Changes: No Baseline Change (Lara Ledgerwood, RN) Variability: Moderate 6-25 bpm (Lara Ledgerwood, RN) Accelerations: 15X15 (Lara Ledgerwood, RN) Decelerations: None (Lara Ledgerwood, RN) Magnesium/Antihypertensives: Magnesium Sulfate IV (Gm/hr) @ (Annotations: 2) (Lara Ledgerwood, RN) Datetime: 10/17/2016 00:25 NBP Sys/Eda/Mean (mmHg): 117 (QS system process) : 72 (QS system process) : 89 (QS system process) Pulse: 79 (QS system process) LaborFlag: Labor (QS system process) Datetime: 10/17/2016 00:10 NBP Sys/Eda/Mean (mmHg): 111 (QS system process) : 68 (QS system process) : 84 (QS system process) Pulse: 71 (QS system process) LaborFlag: Labor (QS system process) Datetime: 10/17/2016 00:00 Monitor Mode: External (Lara Ledgerwood, RN) Frequency (min): none (Lara Ledgerwood, RN) Resting Tone (Palpate): Relaxed (Lara Ledgerwood, RN) Monitor Mode: External US (Lara Ledgerwood, RN) FHR Baseline Rate : 120 (Lara Ledgerwood, RN) FHR Baseline Changes: No Baseline Change (Lara Ledgerwood, RN) Variability: Moderate 6-25 bpm (Lara Ledgerwood, RN) Accelerations: 15X15 (Lara Ledgerwood, RN) Decelerations: None (Lara Ledgerwood, RN) Level of Consciousness: Fully Conscious (Lara Ledgerwood, RN) DTR's/Clonus: DTRs 2+; No Clonus (Lara Ledgerwood, RN) Headache: Denies (Lara Ledgerwood, RN) Breath Sounds, Left: Clear and Equal (Lara Ledgerwood, RN) Breath Sounds, Right: Clear and Equal (Lara Ledgerwood, RN) Nausea/Vomiting: Denies (Lara Ledgerwood, RN) RUQ Epigastric Pain: Denies (Lara Ledgerwood, RN) Magnesium/Antihypertensives: Magnesium Sulfate IV (Gm/hr) @ (Annotations: 2) (Lara Ledgerwood, RN) Datetime: 10/16/2016 23:55 NBP Sys/Eda/Mean (mmHg): 114 (QS system process) : 71 (QS system process) : 87 (QS system process) Pulse: 72 (QS system process) LaborFlag: Labor (QS system process) Datetime: 10/16/2016 23:40 NBP Sys/Eda/Mean (mmHg): 116 (QS system process) : 74 (QS system process) : 91 (QS system process) Pulse: 67 (QS system process) LaborFlag: Labor (QS system process) Datetime: 10/16/2016 23:30 Monitor Mode: External (Lara Gilbert, RN) Frequency (min): none (Lararacheal Gilbert, RN) Resting Tone (Palpate): Relaxed (Lara Gilbert, RN) Monitor Mode: External US (Lara Ledgerwood, RN) FHR Baseline Rate : 120 (Lara Ledgerwood, RN) FHR Baseline Changes: No Baseline Change (Lara Ledgerwood, RN) Variability: Moderate 6-25 bpm (Lara Ledgerwood, RN) Accelerations: 15X15 (Lara Ledgerwood, RN) Decelerations: None (Lara Ledgerwood, RN) Magnesium/Antihypertensives: Magnesium Sulfate IV (Gm/hr) @ (Annotations: 2) (Lara Ledgerwood, RN) Datetime: 10/16/2016 23:26 NBP Sys/Eda/Mean (mmHg): 125 (QS system process) : 76 (QS system process) : 96 (QS system process) Pulse: 78 (QS system process) LaborFlag: Labor (QS system process) Datetime: 10/16/2016 23:23 Analgesics/Sedatives: Ambien (mg) @ 10 (Lara Ledgerwood, RN) Datetime: 10/16/2016 23:19 Patient Position/Activity: Right Lateral (Lara Ledgerwood, RN) Datetime: 10/16/2016 23:10 NBP Sys/Eda/Mean (mmHg): 108 (QS system process) : 63 (QS system process) : 80 (QS system process) Pulse: 72 (QS system process) LaborFlag: Labor (QS system process) Datetime: 10/16/2016 23:00 Monitor Mode: External (Lara Gauravgerwood, RN) Frequency (min): none (Lara Ledgerwood, RN) Resting Tone (Palpate): Relaxed (Lara Gauravgerwood, RN) Monitor Mode: External US (Lara Gauravgerwood, RN) FHR Baseline Rate : 120 (Lara Gauravgerbrandon, RN) FHR Baseline Changes: No Baseline Change (Lara Nolascogerbrandon, RN) Variability: Moderate 6-25 bpm (Lara Ledgerwood, RN) Accelerations: 15X15 (Lara Ledgerwood, RN) Decelerations: None (Lara Gauravgerbrandon, RN) Level of Consciousness: Fully Conscious (Lara Nolascogerbrandon, RN) DTR's/Clonus: DTRs 2+ (Lara Gilbert, RN) Headache: Generalized (Lara Gilbert, RN) Breath Sounds, Left: Clear and Equal (Lara Gilbert, RN) Breath Sounds, Right: Clear and Equal (Lara Gilbert, RN) Nausea/Vomiting: Denies (Lara Gilbert, RN) RUQ Epigastric Pain: Denies (Lara Gilbert, RN) Magnesium/Antihypertensives: Magnesium Sulfate IV (Gm/hr) @ (Annotations: 2) (Lara Gilbert, RN) Datetime: 10/16/2016 22:55 NBP Sys/Eda/Mean (mmHg): 112 (QS system process) : 63 (QS system process) : 83 (QS system process) Pulse: 77 (QS system process) LaborFlag: Labor (QS system process)
--- NOTE | 2016-10-17 10:46 | L&D Current Admission ---
Current Admit Datetime Report Generated by CPN: 10/17/2016 10:45 ADMISSION INFORMATION Current Admit Date/Time: 10/16/2016 03:00 (10/16/2016 03:00:Filemon Ribeiro RN) Other Reason for Admission: Suspected ROM (10/16/2016 03:00:Filemon Ribeiro RN) Chief Complaint: Suspected Rupture of Membranes (10/16/2016 03:00:Filemon Ribeiro RN) Medications During : Methyldopa (Aldomet); Labetolol; Acetaminophen (Tylenol); Ondansetron (Zofran) (10/16/2016 03:00:Filemon Ribeiro RN) EGA per Dates: 32.2 (10/16/2016 03:00:QS system process) Method of Arrival: Wheelchair (10/16/2016 03:00:Filemon Ribeiro RN) Admitted From: Home (10/16/2016 03:00:Filemon Ribeiro RN) Records Available: Yes (10/16/2016 03:00:Filemon Ribeiro RN) General Admission Information: Reviewed (10/16/2016 03:00:Filemon Ribeiro RN) BELONGINGS/ADVANCED DIRECTIVES Valuables/Personal Effects: Cell Phone; Eyeglasses (10/16/2016 03:00:Filemon Ribeiro RN) Disposition of Belongings: Kept with Patient (10/16/2016 03:00:Filemon Ribeiro RN) Advance Direct for Healthcare: No, and Wants No Information (10/16/2016 03:00:Filemon Ribeiro RN) Durable Power of Welder Gas: No (10/16/2016 03:00:Filemon Ribeiro RN) Living Will: No (10/16/2016 03:00:Filemon Ribeiro RN) Organ Donor: Yes (10/16/2016 03:00:Filemon Ribeiro RN) Pt Rights Information Given: Yes (10/16/2016 03:00:Filemon Ribeiro RN) Pt Understands Pt Rights: Yes (10/16/2016 03:00:Filemon Ribeiro RN) LEARNING ASSESSMENT Knowledge Level: Understands L_D Process; Understands Care Activities; Had Pre-Hospital Education; Understands Diagnosis (10/16/2016 03:00:Filemon Ribeiro RN) Barriers to Learning: None (10/16/2016 03:00:Filemon Ribeiro RN) Learning Readiness: Motivated (10/16/2016 03:00:Filemon Ribeiro RN) Learns Best By: Demonstration (10/16/2016 03:00:Filemon Ribeiro RN) Learning Needs: Labor and Delivery Process; Pain Management; Symptoms to Report; Treatment Plan; Medication; Diagnosis; Nutrition; Equipment; Infant Care (10/16/2016 03:00:Filemon Ribeiro RN) DOMESTIC VIOLANCE SCREENING Dom Viol Threatened/Hurt: No (10/16/2016 03:00:Filemon Ribeiro RN) Hx of Abuse/Neglect past 2yrs: No (10/16/2016 03:00:Filemon Ribeiro RN) Feel Unsafe Going Home: No (10/16/2016 03:00:Filemon Ribeiro RN) Addt'l Observ Indicating Abuse: No (10/16/2016 03:00:Filemon Ribeiro RN) Reason Unable to Complete Screen: N/A, Screen Completed (10/16/2016 03:00:Filemon Ribeiro RN) Considered Personal Harm/Suicide: No (10/16/2016 03:00:Filemon Ribeiro RN) NUTRITIONAL/FUNCTIONAL SCREENING Problem with Appetite >5 Days: No (10/16/2016 03:00:Filemon Ribeiro RN) Chew/Swallow Difficulties: No (10/16/2016 03:00:Filemon Ribeiro RN) Inappropriate Wt Gain/Loss: No (10/16/2016 03:00:Filemon Ribeiro RN) Presence Skin Breakdown/Ulcer: No (10/16/2016 03:00:Filemon Ribeiro RN) Special Diet: No (10/16/2016 03:00:Filemon Ribeiro RN) Pt Requests Singing Teacher Visit: No (10/16/2016 03:00:Filemon Ribeiro RN) Hx of Any of the Following?: N/A (10/16/2016 03:00:Filemon Ribeiro RN) New Diagnosis of: N/A (10/16/2016 03:00:Filemon Ribeiro RN) Requires Assist w/Ambulation: No (10/16/2016 03:00:Filemon Ribeiro RN) Uses Assist Device to Ambulate: No (10/16/2016 03:00:Filemon Ribeiro RN) Pt Requires Help w/ADL's: No (10/16/2016 03:00:Filemon Ribeiro RN)
--- NOTE | 2016-10-17 10:47 | L&D Discharge Summary ---
OB Discharge Summary Datetime Report Generated by CPN: 10/17/2016 10:45 DISCHARGE DIAGNOSIS Gestation: 32.2 Parity: 2
[2016-10-17] MEDS: AMOXICILLIN TRIHYD 250 MG CAPSULE PO SCH ×2 (14:18→21:25)
[2016-10-17] MEDS: ACETAMINOPHEN 325 MG TABLET PO PRN (14:18)
[2016-10-17] MEDS ORDERED: BUTALB/ACETAMINOPHEN/CAFFEINE 1 TAB EACH PO PRN (22:05)
[2016-10-18] MEDS: AMOXICILLIN TRIHYD 250 MG CAPSULE PO SCH (06:25)
[2016-10-18] MEDS ORDERED: RINGERS SOLUTION,LACTATED 500 ML IV ONE (06:30)
[2016-10-18] MEDS ORDERED: METHYLDOPA 250 MG TABLET ONE (07:57)
--- NOTE | 2016-10-18 08:01 | L&D Flow Sheet ---
LD Flowsheet Datetime Report Generated by CPN: 10/18/2016 08:00 Datetime: 10/18/2016 07:45 NBP Sys/Eda/Mean (mmHg): 144 (QS system process) : 103 (QS system process) : 120 (QS system process) Pulse: 74 (QS system process) LaborFlag: Labor (QS system process) Datetime: 10/18/2016 07:30 NBP Sys/Eda/Mean (mmHg): 139 (QS system process) : 97 (QS system process) : 114 (QS system process) Pulse: 74 (QS system process) LaborFlag: Labor (QS system process) Datetime: 10/18/2016 07:17 NBP Sys/Eda/Mean (mmHg): 139 (QS system process) : 96 (QS system process) : 114 (QS system process) Pulse: 71 (QS system process) LaborFlag: Labor (QS system process) Datetime: 10/18/2016 07:11 Communication Comments: handoff report received from [facility] RN ([facility], RN) Datetime: 10/18/2016 07:10 Communication Comments: Report to RN Leta. Care relinquished. (Allie Dias RN) Datetime: 10/18/2016 07:02 NBP Sys/Eda/Mean (mmHg): 148 (QS system process) : 103 (QS system process) : 122 (QS system process) Pulse: 73 (QS system process) LaborFlag: Labor (QS system process) Datetime: 10/18/2016 07:01 Monitor Mode: External; Palpation (Allie Dias RN) Monitor Interventions for UA: [place] Adjusted (Allie Dias RN) Frequency (min): 8-10 (Allie Dias RN) Quality: Mild (Allie Dias RN) Duration (sec): 50-60 (Allie Dias RN) Resting Tone (Palpate): Relaxed (Allie Dias RN) Contraction Comments: toco adjusted, RN at bedside and utilized palpation in association of determing contractions (Allie Dias RN) Monitor Mode: External US (Allie Dias RN) FHR Baseline Rate : 140 (Allie Dias, RN) Variability: Moderate 6-25 bpm (Allie Dias, RN) Accelerations: 10X10 (Allie Dias, RN) Decelerations: None (Alliegerald Dias, RN) Datetime: 10/18/2016 06:54 Membranes Ruptured Date/Time: 10/16/2016 01:30 (Allie Dias, ZEENAT) Membranes Rupture Method: Spontaneous (Allie Dias, ZEENAT) Amniotic Fluid Color: Clear (Allie Dias, RN) Amniotic Fluid Amount: Small (Allie Dias, RN) Amniotic Fluid Odor: Normal (Allie Dias, RN) Vaginal Bleeding: None (Allie Dias, RN) Datetime: 10/18/2016 06:45 Level of Consciousness: Fully Conscious (Allie Dias RN) DTR's/Clonus: DTRs 2+; No Clonus (Allie Dias RN) Headache: Denies (Allie Dias RN) Breath Sounds, Left: Clear and Equal (Allie Dias RN) Breath Sounds, Right: Clear and Equal (Allie Dias RN) Nausea/Vomiting: Denies (Allie Dias RN) RUQ Epigastric Pain: Denies (Allie Dias, ZEENAT) Datetime: 10/18/2016 06:44 NBP Sys/Eda/Mean (mmHg): 140 (QS system process) : 98 (QS system process) : 114 (QS system process) Pulse: 64 (QS system process) Respirations: 16 (Allie Dias RN) Temperature (F): 97.7 (Allie Dias RN) Temperature (C): 36.5 (QS system process) Temperature Route: Oral (Allie Dias RN) Pain Scale: 4 (Allie Dias RN) Pain Presence: Intermittent (Allie Dias RN) Pain Type: Contraction (Allie Dias RN) Pain Location: Abdomen; Back (Allie Dias RN) Pain Relief Measures: Comfort Measures (Allie Dias RN) Pain Coping: Talking Through Contractions; Breathing Through Contractions (Allie Dias RN) LaborFlag: Labor (QS system process) Datetime: 10/18/2016 06:25 Communication Comments: Dr. Sutton aware of contractions 7-9 minutes, mild on palpation, no evidence of distress noted. Patient received fluid bolus on . MD states to have patient transfered to for close monitoring. (Allie Dias RN) Datetime: 10/18/2016 06:15 Monitor Mode: External; Palpation (Allie Dias RN) Monitor Interventions for UA: [place] Adjusted (Allie Dias RN) Frequency (min): 1.5-9 (Allie Dias RN) Quality: Mild (Allie Dias RN) Duration (sec): 40-120 (Allie Dias RN) Resting Tone (Palpate): Relaxed (Allie Dias RN) Monitor Mode: External US (Allie Dias RN) FHR Baseline Rate : 135 (Allie Disa RN) FHR Baseline Changes: No Baseline Change (Allie Dias RN) Variability: Moderate 6-25 bpm (Allie Dias RN) Accelerations: 15X15 (Allie Dias RN) Decelerations: None (Allie Dias RN) Datetime: 10/18/2016 05:40 Procedures: Requested at bedside for evaluation of patient on . Patient states that she is having irregular contractions that woke her at 0400. Currently on monitor. Abdomen soft to palpation. Patient does not appear to be in acute distress. [place] monitor adjusted and contraction palpated as mild. No bleeding, patient states still having clear fluid. Will monitor on toco for another 30 minutes and then reevaluate. (Allie Dias RN)
[2016-10-18] MEDS ORDERED: NIFEDIPINE 10 MG CAPSULE PO PRN (08:27)
[2016-10-18] MEDS ORDERED: NIFEDIPINE 10 MG CAPSULE ONE (08:32)
[2016-10-18] MEDS ORDERED: ONDANSETRON HCL INJ/PF 4 MG/2 ML SDV IV ONE (08:58)
[2016-10-18] MEDS ORDERED: ONDANSETRON HCL INJ/PF 4 MG/2 ML SDV ONE (08:58)
[2016-10-18] MEDS ORDERED: HYDROXYZINE PAMOATE 50 MG CAPSULE ONE (08:58)
[2016-10-18] MEDS ORDERED: HYDROXYZINE PAMOATE 50 MG CAPSULE PO ONE (08:58)
[2016-10-18] MEDS ORDERED: LIDOCAINE 1% INJ-PF (10 MG/ML) 30 ML SDV ONE (09:27)
[2016-10-18] MEDS ORDERED: BUPIVACAINE HCL 0.25 % INJ/PF (2.5 MG/1 ML) 30 ML VIAL ONE (09:27)
[2016-10-18] MEDS ORDERED: MISOPROSTOL 0.2 MG TABLET ONE (09:27)
[2016-10-18] MEDS ORDERED: OXYTOCIN/NORMAL SALINE 20 UNIT/1,000 ML RTUINJ ONE (09:27)
[2016-10-18] MEDS ORDERED: FENTANYL/BUPIVACAINE/NS/PF 200 MCG/100 ML RTUINJ EPI ONE (09:27)
[2016-10-18] MEDS ORDERED: EPHEDRINE SULFATE INJ 50 MG/1 ML AMPULE ONE (09:27)
[2016-10-18] MEDS ORDERED: BUPIVACAINE HCL 0.25 % INJ/PF (2.5 MG/1 ML) 30 ML VIAL INFIL ONE (09:41)
[2016-10-18] MEDS ORDERED: EPHEDRINE SULFATE INJ 50 MG/1 ML AMPULE IV PRN (09:41)
[2016-10-18] MEDS ORDERED: FENTANYL/BUPIVACAINE/NS/PF 100 ML EPI PRN (09:41)
[2016-10-18] MEDS ORDERED: ACETAMINOPHEN WITH CODEINE #3 TABLET ONE (10:11)
[2016-10-18] MEDS ORDERED: IBUPROFEN 800 MG TABLET ONE (10:12)
[2016-10-18 10:18] LABS: CHLAM PCR NOT DETECTED (NOT DETECT)
[2016-10-18] MEDS ORDERED: MEASLES,MUMPS&RUBELLA VACC/PF 0.5 ML VIAL SUBCUT PRN (10:19)
[2016-10-18] MEDS ORDERED: ZOLPIDEM TARTRATE 5 MG TABLET PO PRN (10:19)
[2016-10-18] MEDS ORDERED: DIBUCAINE 1% OINTMENT 28 GM TP PRN (10:19)
[2016-10-18] MEDS ORDERED: OXYTOCIN/NORMAL SALINE 1,000 ML IV PRN (10:19)
[2016-10-18] MEDS ORDERED: DIPH/PERTUSS(ACELL)/TETANUS VAC/PF 0.5 ML SYR (>=10YO) IM PRN (10:19)
[2016-10-18] MEDS ORDERED: ACETAMINOPHEN WITH CODEINE #3 TABLET PO PRN ×2 (10:19)
[2016-10-18] MEDS ORDERED: BENZOCAINE/MENTHOL AEROSOL SPRAY 56 ML TOP PRN (10:19)
--- NOTE | 2016-10-18 11:20 | Delivery Summary ---
Del Sum A-C Datetime Report Generated by CPN: 10/18/2016 11:20 ADMISSION DATA Chief Complaint: Suspected Ruptured Membranes Indication for Induction: Not Applicable Admission Impression: , Intrauterine ; No Active Labor; Ruptured Membranes; Obstetrical Complication Admit Provider Comments: d/w pt POC w/ RNs present. voices understanding for need for prolonged hospitalization until delivery which would be preferably at 34 wks due to very premature ROM. counseled on need for ACS protocol w/ betamethazone for lung maturity however, this would not guarantee positive outcome. Will begin Antibiotics for latency. DELIVERY PERSONNEL Delivery Doctor:: Audra Lassiter MD Labor and Delivery Nurse:: Valentina Gillette RNdredge pumper Nurse:: Kerrie Suero RN Neonatal Nurse Practitioner:: HUSSEIN Ochoa Nursery Nurse:: ZEENAT Chowdhury Tech/HIGH SCHOOL DIRECTOR: Sukhdeep Durbin, OPHTHALMIC TECHNICIAN APPRENTICE MATERNAL INFORMATION Delivery Anesthesia: None Medications After Delivery: Pitocin Bolus-Please Comment Meds After Delivery Comment: Pitocin 20 units in 1000mL NS Maternal Complications: Premature Rupture of Membranes LABOR SUMMARY EDC: 12/09/2016 00:00 No. Babies in Womb: 1 Attempted: No Labor Anesthesia: None LABOR INFORMATION Reason for Induction: Not Applicable Onset of Labor: 10/18/2016 09:00 Complete Dilatation: 10/18/2016 09:54 Oxytocin: N/A Group B Beta Strep: negative Antibiotics # of Doses: 0 Steroids Given: Full Course; > 24 Hours before Delivery Reason Steroids Not Administered: Indication MEMBRANES Membranes Rupture Method: Spontaneous Rupture of Membranes: 10/16/2016 01:30 Length of Rupture (hr): 56.42 Amniotic Fluid Color: Clear Amniotic Fluid Amount: Small Amniotic Fluid Odor: Normal STAGES OF LABOR Stage 1 hr: 0 Stage 1 min: 54 Stage 2 hr: 0 Stage 2 min: 1 Stage 3 hr: 0 Stage 3 min: 3 Total Time in Labor hr: 0 Total Time in Labor min: 58 VAGINAL DELIVERY Episiotomy: None Laceration Extension: N/A Laceration Type: None Laceration Repair: Not Applicable Sponge Count Correct: Yes Sharps Count Correct: Yes CSECTION DELIVERY Primary Indication: N/A Secondary Indication: N/A CSection Incidence: N/A Labor: N/A Elective: N/A CSection Incision: N/A BABY A INFORMATION Delivery Date/Time: 10/18/2016 09:55 Method of Delivery: Vaginal Born in Route : No : N/A Forceps: N/A Vacuum Extraction: N/A Shoulder Dystocia : No PRESENTATION/POSITION BABY A Presentation: Cephalic Cephalic Presentation: Vertex Vertex Position: Left Occipital Anterior Breech Presentation: Complete PLACENTA INFORMATION BABY A Placenta Delivery Time : 10/18/2016 09:58 Placenta Method of Delivery: Spontaneous Placenta Status: Delivered SCORES BABY A Heart Rate 1 min: >100 bpm Resp Effort 1 min: Good Cry Reflex Irritability 1 min: Cough or Sneeze or Pulls Away Muscle Tone 1 min: Active Motion Color 1 min: Blue/Pale Resuscitation Effort 1 min: Tactile Stimulation SCORE 1 MIN: 8 Heart Rate 5 min: >100 bpm Resp Effort 5 min: Good Cry Reflex Irritability 5 min: Cough or Sneeze or Pulls Away Muscle Tone 5 min: Active Motion Color 5 min: Body [place], Extremities Blue SCORE 5 MIN: 9 INFORMATION BABY A Gestational Age at Delivery: 32.4 Gestational Status: - <34 Weeks Outcome : Liveborn Condition : Stable Infant Sex: Female IDENTIFICATION BABY A Verification Date/Time: 10/18/2016 10:56 ID Band Number: [id number] Mother's Name Verified: Yes Infant RN Verifying Infant: B Baidy RN/T Ramakrishna OPHTHALMIC TECHNICIAN APPRENTICE WEIGHT/LENGTH BABY A Birthweight (gm): 1771 Infant Weight (lb): 3 Infant Weight (oz): 14 Infant Length (in): 16.50 Length (cm): 41.91 CORD INFORMATION BABY A No. Cord Vessels: 3 Nuchal Cord : N/A Cord Blood Taken: Yes-For Storage (Mom's Blood type +) Infant Suction: Mouth; Nose ASSESSMENT BABY A Complications: None Physical Findings at Delivery: Within Normal Limits Infant Respirations: Appears Normal Skin to Skin: Yes Skin to Skin Time (min): 2 Assembler Equipment/ALS Called : Yes Infant Care By: Kailey Jacobson WILDLIFE ECOLOGIST Transferred To: NICU BABY B INFORMATION : N/A SIGNATURES Signature: with User ID: [email or web address]
--- NOTE | 2016-10-18 12:03 | Admission Physical ---
Datetime Report Generated by CPN: 10/18/2016 12:03 CURRENT ADMISSION Chief Complaint: Suspected Ruptured Membranes Indication for Induction: Not Applicable Admit Plan: Admit to Unit; Initiate Labor Protocol Admit Plan- Other: tocolysis, ACS protocol, management until 34 wks then deliver ALLERGIES Medication Allergies: No Medication Allergies: No Known Allergies (09/25/2014) Latex: No Latex Allergies Food Allergies: None Environmental Allergies: None OBSTETRICAL HISTORY EDC: 12/09/2016 00:00 : 5 Para: 2 SAB: 2 IAB: 0 Livin Gestational Diabetes: No Rh Sensitization: No Incompetent Cervix: No GOPI: No Infertility: No ART Treatment: No Uterine Anomaly: No IUGR: No Hx Previous C/S: No Macrosomia: No Hx Loss/Stillborn: No PIH: No Hx : No Placenta Previa/Abruption: No Depression/PP Depression: No PTL/PROM: Yes Post Hemorrhage: No Current Procedures: Ultrasound; NST Obstetrical History Comments: G1: 2009 6 weeks SAB G2: 2009 6 weeks SAB G3: 2010 38 weeks 6 lbs 5 oz: toxemia, HTN G4: 2013 37.4 6 lbs 7 oz, HTN- on Aldomet SEE RECORDS Alcohol: No Marijuana : No Cocaine: No Other Illicit Drugs: No Cigarettes: Never Smoker. 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 Heart Disease: No Hosp/Surgery: No Autoimmune Disorder: No Anesthetic Complications: No Kidney Disease: No Abnormal Pap Smear: No Neuro/Epilepsy: No Psychiatric Disorders: No Other Medical Diseases: No Hepatitis/Liver Disease: No Significant Family History: No Varicosities/Phlebitis: No Trauma/Violence : No Thyroid Dysfunction: No Medical History Comments: CHTN since first was on lisinopril, seld d/c'd meds INFECTIOUS HISTORY Gonorrhea: No Genital Herpes: No Chlamydia: No Tuberculosis: No Syphilis: No Hepatitis: No HIV/AIDS Exposure: No Rash or Viral Illness: No HPV: No PHYSICAL EXAM General: Normal HEENT: Normal Neurologic: Normal Thyroid: Normal Heart: Normal Lungs: Normal Breast: Normal Back: Normal Abdomen: Normal Genitourinary Exam: Normal Extremities: Normal DTRs: Normal Pelvic Type: Adequate Vital Signs: Reviewed MEMBRANES Pooling: Positive Membranes: Ruptured Amniotic Fluid Color: Clear FETUS A EGA: 32.2 Monitoring: External US FHR- Baseline: 130 Variability: Moderate 6-25bpm Accelerations: 10X10 Decelerations: None FHR Category: Category I Estimated Weight (gm): 2200 Admit Comment: d/w pt POC w/ RNs present. voices understanding for need for prolonged hospitalization until delivery which would be preferably at 34 wks due to very premature ROM. counseled on need for ACS protocol w/ betamethazone for lung maturity however, this would not guarantee positive outcome. Will begin Antibiotics for latency. PLANS FOR LABOR AND DELIVERY Labor and Delivery: None Pain Management: Epidural Feeding Preference: Formula Benefit of Breast Feed Discussed: Yes Circumcision: N/A INFORMED CONSENT Signature: with User ID: [email or web address]
[2016-10-18] MEDS: METHYLDOPA 250 MG TABLET PO SCH ×2 (13:40→22:26)
[2016-10-18] MEDS: AZITHROMYCIN 250 MG TABLET PO SCH (13:40)
[2016-10-18] MEDS: FERROUS SULFATE 325 MG TABLET PO SCH (17:05)
[2016-10-18] MEDS: DOCUSATE SODIUM 100 MG CAPSULE PO SCH (17:05)
[2016-10-18] MEDS ORDERED: IBUPROFEN 800 MG TABLET PO SCH (18:00)
--- NOTE | 2016-10-18 19:00 | L&D Flow Sheet ---
LD Flowsheet Datetime Report Generated by CPN: 10/18/2016 19:00 Datetime: 10/18/2016 11:30 NBP Sys/Eda/Mean (mmHg): 123 (QS system process) : 83 (QS system process) : 99 (QS system process) Pulse: 64 (QS system process) Pain Scale: 0 (Valentina Gillette RN) Pain Presence: None/Denies (Valentina Gillette RN) Pain Type: N/A (Valentina Gillette, RN) Datetime: 10/18/2016 11:15 NBP Sys/Eda/Mean (mmHg): 134 (QS system process) : 88 (QS system process) : 106 (QS system process) Pulse: 60 (QS system process) Datetime: 10/18/2016 11:00 NBP Sys/Eda/Mean (mmHg): 148 (QS system process) : 93 (QS system process) : 115 (QS system process) Pulse: 69 (QS system process) Datetime: 10/18/2016 10:45 NBP Sys/Eda/Mean (mmHg): 140 (QS system process) : 87 (QS system process) : 108 (QS system process) Pulse: 67 (QS system process) Temperature (F): 98.8 (Valentina Gillette RN) Temperature (C): 37.1 (QS system process) Temperature Route: Axillary (Valentina Gillette RN) Pain Scale: 0 (Valentina Gillette RN) Pain Presence: None/Denies (Valentina Gillette RN) Pain Type: N/A (Valentina Gillette RN) Datetime: 10/18/2016 10:30 NBP Sys/Eda/Mean (mmHg): 155 (QS system process) : 91 (QS system process) : 119 (QS system process) Pulse: 66 (QS system process) Datetime: 10/18/2016 10:15 NBP Sys/Eda/Mean (mmHg): 152 (QS system process) : 91 (QS system process) : 116 (QS system process) Pulse: 81 (QS system process) Datetime: 10/18/2016 10:12 Pain Scale: 4 (Valentina Baidy, RN) Pain Presence: Constant (Valentina Gillette RN) Pain Type: Cramping (Valentina Gillette RN) Pain Location: Abdomen (Valentina Gillette RN) Pain Goal: 1 (Valentina Gillette RN) Pain Relief Measures: Pain Medication Given (Valentina Gillette RN) Datetime: 10/18/2016 10:02 NBP Sys/Eda/Mean (mmHg): 139 (QS system process) : 89 (QS system process) : 106 (QS system process) Pulse: 77 (QS system process) Datetime: 10/18/2016 10:00 NBP Sys/Eda/Mean (mmHg): 140 (QS system process) : 77 (QS system process) : 103 (QS system process) Pulse: 70 (QS system process) Datetime: 10/18/2016 09:58 Stage of : Recovery (Valentina Gillette, ZEENAT) Pain Scale: 1 (Valentina Gillette, RN) Pain Presence: Intermittent (Valentina Gillette RN) Pain Type: Cramping (Valentina Gillette, RN) Pain Location: Abdomen (Valentina Gillette, RN) Pain Goal: 1 (Valentina Gillette, RN) Pain Relief Measures: Comfort Measures (Valentina Gillette, RN) Datetime: 10/18/2016 09:55 Monitor Mode: External; Palpation (Valentina Gillette, RN) Frequency (min): 1-3 (Valentina Gillette, RN) Quality: Moderate (Valentina Gillette, RN) Duration (sec): 60-90 (Valentina Gillette, RN) Duration Criteria: Less than Two 120 Second Contractions (Valentina Gillette, RN) Pattern: Normal: <= 5 Contractions in 10 Minutes (Valentina Gillette, RN) Resting Tone (Palpate): Relaxed (Valentina Gillette, RN) Monitor Mode: External US (Valentina Gillette, RN) FHR Baseline Rate : 150 (Valentina Gillette, RN) Variability: Moderate 6-25 bpm (Valentina Gillette, RN) Accelerations: 15X15 (Valentina Leta, RN) Decelerations: None (Valentina Gillette, RN) Datetime: 10/18/2016 09:54 Pushing: Urge to Push; Involuntary Pushing (Valentina Gillette, RN) Communication Comments: Dr Lassiter called to bedside for delivery (Valentina Gillette, RN) Datetime: 10/18/2016 09:51 Patient Care Comments: pt sitting up for epidural. (Valentina Gillette, RN) Datetime: 10/18/2016 09:42 Dilatation (cm): 6.5 (Valentina Gillette RN) Effacement (%): 90 (Valentina Gillette RN) Station: 0 (Valentina Gillette RN) Exam by: Dr Lassiter (Valentina Gillette, RN) Datetime: 10/18/2016 09:41 Anesthesia Comments: Dr Jah notified of pt request for epidural. (Valentina Gillette, RN) Datetime: 10/18/2016 09:35 I/O Interventions: Bedpan Given (Valentina Gillette, RN) Datetime: 10/18/2016 09:31 NBP Sys/Eda/Mean (mmHg): 126 (QS system process) : 80 (QS system process) : 98 (QS system process) Pulse: 92 (QS system process) Communication Comments: Dr Lassiter at bedside to perform US. (Valentina Gillette RN) LaborFlag: Labor (QS system process) Datetime: 10/18/2016 09:30 Monitor Mode: External; Palpation (Valentina Gillette RN) Frequency (min): 1.5-6 (Valentina Gillette RN) Quality: Mild (Valentina Gillette RN) Duration (sec): 60-80 (Valentina Gillette RN) Duration Criteria: Less than Two 120 Second Contractions (Valentina Gillette, RN) Pattern: Normal: <= 5 Contractions in 10 Minutes (Valentina Gillette, RN) Resting Tone (Palpate): Relaxed (Valentina Gillette, RN) Contraction Comments: ctx palpate mild pt visually uncomfortable. (Valentina Gillette, RN) Monitor Mode: External US (Valentina Gillette, RN) FHR Baseline Rate : 150 (Valentina Gillette, RN) Variability: Moderate 6-25 bpm (Valentina Gillette, RN) Accelerations: 15X15 (Valentina Gillette, RN) Decelerations: None (Valentina Gillette, RN) Datetime: 10/18/2016 09:29 Dilatation (cm): 4.0 (Valentina Baidy, RN) Effacement (%): 80 (Valentina Baidy, RN) Station: 0 (Valentina Baidy, RN) Exam by: Dr Maikol (Valentina Baidy, RN) Datetime: 10/18/2016 09:28 Communication Comments: Dr Maikol at bedside to perform SVE. (Valentina Baidy, RN) Datetime: 10/18/2016 09:26 Patient Care Comments: pt feeling pressure (Valentina Baidy, RN) Datetime: 10/18/2016 09:19 Patient Care Comments: pt very uncomfortable and requesting epidural. Dr Maikol notified of pt request, orders received to wait for epidural. (Valentina Baidy, RN) Datetime: 10/18/2016 09:16 NBP Sys/Eda/Mean (mmHg): 138 (QS system process) : 95 (QS system process) : 112 (QS system process) Pulse: 106 (QS system process) LaborFlag: Labor (QS system process) Datetime: 10/18/2016 09:08 Antiemetics/Antacids: Vistaril (mg) @ 50 (Valentina Baidy, RN) Datetime: 10/18/2016 09:05 Antiemetics/Antacids: Zofran IV (mg) @ 8 (Valentina Gillette RN) Datetime: 10/18/2016 09:01 NBP Sys/Eda/Mean (mmHg): 130 (QS system process) : 95 (QS system process) : 108 (QS system process) Pulse: 90 (QS system process) LaborFlag: Labor (QS system process) Datetime: 10/18/2016 09:00 Monitor Mode: External; Palpation (Valentina Gillette RN) Frequency (min): 5-7 (Valentina Gillette RN) Quality: Mild (Valentina Gillette RN) Duration (sec): 60-70 (Valentina Gillette RN) Duration Criteria: Less than Two 120 Second Contractions (Valentina Baidy, RN) Pattern: Normal: <= 5 Contractions in 10 Minutes (Valentina Gillette, RN) Resting Tone (Palpate): Relaxed (Valentina Gillette, RN) Monitor Mode: External US (Valentina Gillette RN) FHR Baseline Rate : 145 (Valentina Gillette, RN) Variability: Moderate 6-25 bpm (Valentina Bairomie, RN) Accelerations: None (Valentina Gillette, RN) Decelerations: None (Valentina Gillette, RN) Datetime: 10/18/2016 08:53 IV/Blood Work: IV Started; IV Bolus Started (Valentina Gillette, RN) Datetime: 10/18/2016 08:50 Communication Comments: Dr Lassiter at bedside, orders received for vistaril 50mg bolus 1L LR and then run @ 125mL/hr. (Valentina Gillette, RN) Datetime: 10/18/2016 08:49 Communication Comments: Dr Maikol notified of pt complaint of feeling more uncomfortable and asked to come eval pt. (Valentina Gillette, RN) Datetime: 10/18/2016 08:46 Patient Position/Activity: Right Lateral (Valentina Gillette, RN) Datetime: 10/18/2016 08:45 NBP Sys/Eda/Mean (mmHg): 129 (QS system process) : 85 (QS system process) : 103 (QS system process) Pulse: 68 (QS system process) LaborFlag: Labor (QS system process) Datetime: 10/18/2016 08:35 Monitor Interventions for UA: [place] Adjusted (Valentina Gillette RN) Datetime: 10/18/2016 08:32 Tocolytics: Procardia PO (mg) @ 10 (Valentina Gillette RN) Datetime: 10/18/2016 08:30 NBP Sys/Eda/Mean (mmHg): 133 (QS system process) : 87 (QS system process) : 106 (QS system process) Pulse: 72 (QS system process) Monitor Mode: External; Palpation (Valentina Gillette RN) Frequency (min): 5-7 (Valentina Gillette RN) Quality: Mild (Valentina Gillette RN) Duration (sec): 60-70 (Valentina Gillette RN) Duration Criteria: Less than Two 120 Second Contractions (Valentina Gillette RN) Pattern: Normal: <= 5 Contractions in 10 Minutes (Valentina Gillette RN) Resting Tone (Palpate): Relaxed (Valentina Gillette RN) Monitor Mode: External US (Valentina Gillette RN) FHR Baseline Rate : 145 (Valentina Gillette RN) Variability: Moderate 6-25 bpm (Valentina Gillette RN) Accelerations: 15X15 (Valentina Gillette RN) Decelerations: None (Valentina Gillette RN) LaborFlag: Labor (QS system process) Datetime: 10/18/2016 08:24 Communication: Report Given to @ Dr Lassiter (Valentina Gillette RN) Notification Reason: Status Update; Labor Status; Uterine Activity (Valentina Gillette RN) Communication Comments: orders received for procardia 10mg q6 prn. (Valentina Gillette RN) Datetime: 10/18/2016 08:19 Respirations: 17 (Valentina Baidy, RN) Temperature (F): 99.0 (Valentina Gillette, RN) Temperature (C): 37.2 (QS system process) LaborFlag: Labor (QS system process) Datetime: 10/18/2016 08:15 NBP Sys/Eda/Mean (mmHg): 136 (QS system process) : 86 (QS system process) : 106 (QS system process) Pulse: 75 (QS system process) LaborFlag: Labor (QS system process) Datetime: 10/18/2016 08:09 Monitor Interventions for UA: [place] Adjusted (Valentina Gillette, RN) Datetime: 10/18/2016 08:08 Patient Care Comments: pt states that she is feeling ctx still, toco not picking them up and abd palpates soft. [place] adjusted. (Valentina Baidy, RN) Datetime: 10/18/2016 08:00 Monitor Mode: External; Palpation (Valentina Baidy, RN) Frequency (min): irregular (Valentina Baidy, RN) Quality: Mild (Valentina Baidy, RN) Duration Criteria: Less than Two 120 Second Contractions (Valentina Baidy, RN) Pattern: Normal: <= 5 Contractions in 10 Minutes (Valentina Baidy, RN) Resting Tone (Palpate): Relaxed (Valentina Baidy, RN) Monitor Mode: External US (Valentina Baidy, RN) FHR Baseline Rate : 140 (Valentina Baidy, RN) Variability: Moderate 6-25 bpm (Valentina Baidy, RN) Accelerations: 15X15 (Valentina Baidy, RN) Decelerations: None (Valentina Baidy, RN) Datetime: 10/18/2016 07:59 I/O Interventions: Up to BR (Valentina Gillette RN) Datetime: 10/18/2016 07:45 NBP Sys/Eda/Mean (mmHg): 144 (QS system process) : 103 (QS system process) : 120 (QS system process) Pulse: 74 (QS system process) LaborFlag: Labor (QS system process) Datetime: 10/18/2016 07:30 NBP Sys/Eda/Mean (mmHg): 139 (QS system process) : 97 (QS system process) : 114 (QS system process) Pulse: 74 (QS system process) Monitor Mode: External; Palpation (Valentina Gillette RN) Frequency (min): 7-8 (Valentina Gillette RN) Quality: Mild (Valentina Gillette RN) Duration (sec): 60-70 (Valentina Gillette RN) Duration Criteria: Less than Two 120 Second Contractions (Valentina Gillette RN) Pattern: Normal: <= 5 Contractions in 10 Minutes (Valentina Gillette RN) Resting Tone (Palpate): Relaxed (Valentina Baidy, RN) Monitor Mode: External US (Valentina Gillette, RN) FHR Baseline Rate : 140 (Valentina Gillette, RN) Variability: Moderate 6-25 bpm (Valentina Gillette, RN) Accelerations: 15X15 (Valentina Gillette, RN) Decelerations: None (Valentina Gillette, RN) LaborFlag: Labor (QS system process) Datetime: 10/18/2016 07:17 NBP Sys/Eda/Mean (mmHg): 139 (QS system process) : 96 (QS system process) : 114 (QS system process) Pulse: 71 (QS system process) LaborFlag: Labor (QS system process) Datetime: 10/18/2016 07:11 Communication Comments: handoff report received from Israel Morales RN (Valentina Gillette, ZEENAT) Datetime: 10/18/2016 07:10 Communication Comments: Report to RN Leta. Care relinquished. (Allie Dias RN) Datetime: 10/18/2016 07:02 NBP Sys/Eda/Mean (mmHg): 148 (QS system process) : 103 (QS system process) : 122 (QS system process) Pulse: 73 (QS system process) LaborFlag: Labor (QS system process) Datetime: 10/18/2016 07:01 Monitor Mode: External; Palpation (Allie Dias RN) Monitor Interventions for UA: [place] Adjusted (Allie Dias RN) Frequency (min): 8-10 (Allie Dias RN) Quality: Mild (Allie Dias RN) Duration (sec): 50-60 (Allie Dias RN) Resting Tone (Palpate): Relaxed (Allie Dias RN) Contraction Comments: marley jones RN at bedside and utilized palpation in association of determing contractions (Allie Dias RN) Monitor Mode: External US (Allie Dias RN) FHR Baseline Rate : 140 (Allie Dias RN) Variability: Moderate 6-25 bpm (Allie Dias RN) Accelerations: 10X10 (Allie Dias RN) Decelerations: None (Allie Dias RN) Datetime: 10/18/2016 07:00 Monitor Mode: External; Palpation (Valentina Gillette RN) Frequency (min): 8 (Valentina Gillette RN) Quality: Mild (Valentina Gillette RN) Duration (sec): 60-70 (Valentina Gillette RN) Duration Criteria: Less than Two 120 Second Contractions (Valentina Gillette RN) Pattern: Normal: <= 5 Contractions in 10 Minutes (Valentina Gillette RN) Resting Tone (Palpate): Relaxed (Valentina Gillette RN) Monitor Mode: External US (Valentina Gillette RN) FHR Baseline Rate : 140 (Valentina Gillette RN) Variability: Moderate 6-25 bpm (Valentina Gillette RN) Accelerations: 15X15 (Valentina Gillette RN) Decelerations: None (Valentina Gillette RN)
[2016-10-18] MEDS: IBUPROFEN 800 MG TABLET PO SCH (22:22)
--- NOTE | 2016-10-19 06:01 | L&D General Admission ---
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: [employer] (10/16/2016 02:29:Filemon Ribeiro RN) Prepregnancy Weight (lb): 170 (10/16/2016 02:29:Filemon Ribeiro RN) Prepregnancy Weight (kg): 77.3 (10/16/2016 02:29:QS system process) Height (in): 65 (10/16/2016 02:38:QS system process) ALLERGIES Medication Allergy: No (10/16/2016 02:29:Filemon Ribeiro RN) Medication Allergies: No Known Allergies (09/25/2014) (11/09/2014 12:58:QS system process) Latex Allergy: No Latex Allergies (10/16/2016 02:29:Filemon Ribeiro RN) Food Allergies: None (10/16/2016 02:29:Filemon Ribeiro RN) Environmental Allergies: None (10/16/2016 02:29:Filemon Ribeiro RN) COMMUNICATION Primary Language: Sammarinese (10/16/2016 02:29:Filemon Ribeiro RN) Medical Tx Preferred Language: Sammarinese (10/16/2016 02:29:Valentina Gillette RN) DEMOGRAPHICS Address: [address] [place] [id number] (10/16/2016 02:27:QS system process) Zipcode: [id number] (02/21/2016 14:02:QS system process) Home (10/16/2016 02:27:QS system process) Work (10/16/2016 02:27:QS system process) SSN: [id number] (11/09/2014 12:58:QS system process) Next of Kin Name: HENRY QUINN (11/09/2014 12:58:QS system process) Next of Kin (10/16/2016 02:27:QS system process) Next of Kin Relationship: SPO (11/09/2014 12:58:QS system process) Date of : 1990 (11/09/2014 12:58:QS system process) Marital Status: (11/09/2014 12:58:QS system process) Sex: Female (11/09/2014 12:58:QS system process) Race: (11/09/2014 12:58:QS system process) Ethnicity: Non- or (11/09/2014 12:58:QS system process) Zoroastrian: None (11/09/2014 12:58:QS system process) DRUG AND ALCOHOL USE Alcohol: No (10/16/2016 02:29:Filemon Ribeiro RN) Cigarettes: Never Smoker. [id number] (10/16/2016 02:29:Filemon Ribeiro RN) Marijuana: No (10/16/2016 02:29:Filemon Ribeiro RN) Cocaine: No (10/16/2016 02:29:Filemon Ribeiro RN) Other Illicit Drugs: No (10/16/2016 02:29:Filemon Ribeiro RN) VACCINE HISTORY Influenza Vaccine: No (10/16/2016 02:29:Filemon Ribeiro RN) Pneumococcal Vaccine: No (10/16/2016 02:29:Filemon Ribeiro RN) Tetanus Vaccine: Uncertain (10/16/2016 02:29:Filemon Ribeiro RN) Tdap Vaccine: Yes (10/16/2016 02:29:Filemon Ribeiro RN) Tdap Date: 10-01-2016 (10/16/2016 02:29:Filemon Ribeiro RN) Hepatitis B Vaccine: Uncertain (10/16/2016 02:29:Filemon Ribeiro RN) Air Conditioning Unit Tester: [facility] (10/16/2016 02:29:Filemon Ribeiro RN) Feeding Preference: Formula (10/16/2016 02:29:Filemon Ribeiro RN) Benefit of Breast Feed Discussed: Yes (10/16/2016 02:29:Filemon Ribeiro RN) Circumcision: N/A (10/16/2016 02:29:Filemon Ribeiro RN) Classes Attended: No (10/16/2016 02:29:Filemon Ribeiro RN) Tubal Ligation: No (10/16/2016 02:29:Filemon Ribeiro RN) Tubal Authorization Signed: N/A (10/16/2016 02:29:Filemon Ribeiro RN) Consent: N/A (10/16/2016 02:29:Filemon Ribeiro RN) Consent Signed: N/A (10/16/2016 02:29:Filemon Ribeiro RN) Pain Management Plans: Epidural (10/16/2016 02:29:Filemon Ribeiro RN) Plans for Labor and Delivery: None (10/16/2016 02:29:Filemon Ribeiro RN) Support Person: Henry Quinn (10/16/2016 02:29:Filemon Ribeiro RN) Support Person Relationship: (10/16/2016 02:29:Filemon Ribeiro RN) Cultural/Spritual Practice: No (10/16/2016 02:29:Filemon Ribeiro RN) Spir/Cult Dietary Needs: No (10/16/2016 02:29:Filemon Ribeiro RN) LIVING SITUATION/DISCHARGE PLAN Living Arrangements: House (10/16/2016 02:29:Filemon Ribeiro RN) Adequate Access to:: Electric; Heat; Refrigeration; Plumbing/Running water; Phone; Transportation (10/16/2016 02:29:Filemon Ribeiro RN) WIC Program: No (10/16/2016 02:29:Filemon Ribeiro RN) Discharge L Tacker Person: Henry Quinn (10/16/2016 02:29:Filemon Ribeiro RN) Person to Help after Discharge: Henry Quinn (10/16/2016 02:29:Filemon Ribeiro RN) Currently Using Commun Resources: No (10/16/2016 02:29:Filemon Ribeiro RN) Outside Agency/Admissions Specialist: Keira (10/16/2016 02:29:Filemon Ribeiro RN) Car Seat for Discharge: Yes (10/16/2016 02:29:Filemon Ribeiro RN) Adoption Requested: No (10/16/2016 02:29:Filemon Ribeiro RN) Pt Contact w/infant Post : N/A (10/16/2016 02:29:Filemon Ribeiro RN) LABS Blood Type: A Positive (10/16/2016 02:29:Lara Gilbert RN) Antibody Screen: negative (10/16/2016 02:29:Valentina Gillette RN) Rho(G) this : Not Applicable (10/16/2016 02:29:Valentina Gillette RN) Hemoglobin: 10.1 L (10/17/2016 06:53:QS system process) Hematocrit: 30.6 L (10/17/2016 06:53:QS system process) MCV: 80 (10/17/2016 06:53:QS system process) Group Beta Strep: negative (10/16/2016 02:29:Lara Gilbert RN) RPR/VDRL: Nonreactive (10/16/2016 02:29:Bia Paige RN) Hepatitis B: Negative (10/16/2016 02:29:Bia Paige RN) Rubella: Immune (10/16/2016 02:29:Lara Gilbert RN) OB/PREVIOUS HISTORY Age of Menses Onset: 12 (10/16/2016 02:29:Filemon Ribeiro RN) Mensus Frequency: 28 (10/16/2016 02:29:Filemon Ribeiro RN) Menses Duration: 7 (10/16/2016 02:29:Filemon Ribeiro RN) Menses Amount: Light (10/16/2016 02:29:Filemon Ribeiro RN) LMP Regular: Yes (10/16/2016 02:29:Filemon Ribeiro RN) BCP at Conception: No (10/16/2016 02:29:Filemon Ribeiro RN) LMP: 01/02/2016 00:00 (10/16/2016 02:29:Filemon Ribeiro RN) Previous Procedures: Ultrasound; NST (10/16/2016 02:29:Filemon Ribeiro RN) Current Procedures: Ultrasound; NST (10/16/2016 02:29:Filemon Ribeiro RN) History of Previous : No (10/16/2016 02:29:Filemon Ribeiro RN) History of Gestational Diabetes: No (10/16/2016 02:29:Filemon Ribeiro RN) History of PIH: No (10/16/2016 02:29:Fileomn Ribeiro RN) History of Incompetent Cervix: No (10/16/2016 02:29:Filemon Ribeiro RN) History of Placenta Previa/Abrup: No (10/16/2016 02:29:Filemon Ribeiro RN) History of Macrosomia: No (10/16/2016 02:29:Filemon Ribeiro RN) History of IUGR: No (10/16/2016 02:29:Filemon Ribeiro RN) History of Hemorrhage: No (10/16/2016 02:29:Filemon Ribeiro RN) History of Loss/Stillborn: No (10/16/2016 02:29:Filemon Ribeiro RN) History of : No (10/16/2016 02:29:Filemon Ribeiro RN) History of D (Rh) Sensitization: No (10/16/2016 02:29:Filemon Ribeiro RN) History Recurrent Loss/Stillborn: No (10/16/2016 02:29:Filemon Ribeiro RN) History Depression/PP Depression: No (10/16/2016 02:29:Filemon Ribeiro RN) History of Uterine Anomaly/GOPI: No (10/16/2016 02:29:Filemon Ribeiro RN) History of Infertility: No (10/16/2016 02:29:Filemon Ribeiro RN) History of ART Treatment: No (10/16/2016 02:29:Filemon Ribeiro RN) History of GOPI: No (10/16/2016 02:29:Filemon Ribeiro RN) Comments Obstetrical History: G1: 2009 6 weeks SAB G2: 2009 6 weeks SAB G3: 2010 38 weeks 6 lbs 5 oz: toxemia, HTN G4: 2013 37.4 6 lbs 7 oz, HTN- on [place] (10/16/2016 02:29:Bia Paige RN) MEDICAL HISTORY Med Hx Diabetes: No (10/16/2016 02:29:Filemon Ribeiro RN) Med Hx Hypertension: Yes (10/16/2016 02:29:Lara Gilbert RN) Med Hx Heart Disease: No (10/16/2016 02:29:Filemon Ribeiro RN) Med Hx Autoimmune Disorder: No (10/16/2016 02:29:Filemon Ribeiro RN) Med Hx Kidney Disease/UTI: No (10/16/2016 02:29:Filemon Ribeiro RN) Med Hx Neurologic/Epilepsy: No (10/16/2016 02:29:Filemon Ribeiro RN) Med Hx Psychiatric Disorders: No (10/16/2016 02:29:Filemon Ribeiro RN) Med Hx Hepatitis/Liver Disease: No (10/16/2016 02:29:Filemon Ribeiro RN) Med Hx Varicosities/Phlebitis: No (10/16/2016 02:29:Filemon Ribeiro RN) Med Hx Thyroid Dysfunction: No (10/16/2016 02:29:Filemon Ribeiro RN) Med Hx Trauma/Violence: No (10/16/2016 02:29:Filemon Ribeiro RN) Med Hx Blood Transfusion: No (10/16/2016 02:29:Filemon Ribeiro RN) Med Hx Pulmonary (Asthma,TB): No (10/16/2016 02:29:Filemon Ribeiro RN) Med Hx Breast: No (10/16/2016 02:29:Filemon Ribeiro RN) Med Hx STRETCHER AND DRIER Surgery: No (10/16/2016 02:29:Filemon Ribeiro RN) Med Hx Hospitalization/Surgery: No (10/16/2016 02:29:Filemon Ribeiro RN) Med Hx Anesthetic Complications: No (10/16/2016 02:29:Filemon Ribeiro RN) Med Hx Abnormal Pap Smear: No (10/16/2016 02:29:Filemon Ribeiro RN) Other Medical Diseases: No (10/16/2016 02:29:Filemon Ribeiro RN) Med Hx Significant Family Hx: No (10/16/2016 02:29:Filemon Ribeiro RN) Details of Med/Surg Hx: CHTN since first was on lisinopril, seld d/c'd meds (10/16/2016 02:29:Bia Paige RN) INFECTIOUS HISTORY Inf Hx Gonorrhea: No (10/16/2016 02:29:Filemon Ribeiro RN) Inf Hx Chlamydia: No (10/16/2016 02:29:Filemon Ribeiro RN) Inf Hx Syphilis: No (10/16/2016 02:29:Filemon Ribeiro RN) Inf Hx HIV/AIDS: No (10/16/2016 02:29:Filemon Ribeiro RN) Inf Hx Human Papilloma Virus: No (10/16/2016 02:29:Filemon Ribeiro RN) Inf Hx Pt/Partner Genital Herpes: No (10/16/2016 02:29:Filemon Ribeiro RN) Inf Hx Tuberculosis/Exposure: No (10/16/2016 02:29:Filemon Ribeiro RN) Inf Hx Hepatitis B,C: No (10/16/2016 02:29:Filemon Ribeiro RN) Inf Hx Rash or Viral Illness: No (10/16/2016 02:29:Filemon Ribeiro RN) GENETIC HISTORY Gen Hx Age >=35 at SCOTTY: No (10/16/2016 02:29:Filemon Ribeiro RN) Gen Hx Thalassemia: No (10/16/2016 02:29:Filemon Ribeiro RN) Gen Hx Congenital Heart Defect: No (10/16/2016 02:29:Filemon Ribeiro RN) Gen Hx Neural Tube Defect: No (10/16/2016 02:29:Filemon Ribeiro RN) Gen Hx Down's Syndrome: No (10/16/2016 02:29:Filemon Ribeiro RN) Gen Hx Andrew-Sachs: No (10/16/2016 02:29:Filemon Ribeiro RN) Gen Hx Eris: No (10/16/2016 02:29:Filemon Ribeiro RN) Gen Hx Familial Dysautonomia: No (10/16/2016 02:29:Filemon Ribeiro RN) Gen Hx Sickle Cell Disease/Trait: No (10/16/2016 02:29:Filemon Ribeiro RN) Gen Hx Hemophilia/Blood Disorder: No (10/16/2016 02:29:Filemon Ribeiro RN) Gen Hx Muscular Dystrophy: No (10/16/2016 02:29:Filemon Ribeiro RN) Gen Hx Cystic Fibrosis: No (10/16/2016 02:29:Filemon Ribeiro RN) Gen Hx Huntingtons Chorea: No (10/16/2016 02:29:Filemon Ribeiro RN) Gen Hx Mental Retardation/Autism: No (10/16/2016 02:29:Filemon Ribeiro RN) Gen Hx Tested for Fragile X: No (10/16/2016 02:29:Filemon Ribeiro RN) Gen Hx Other Inher/Chromosomal: No (10/16/2016 02:29:Filemon Ribeiro RN) Gen Hx Maternal Metabolic DO: No (10/16/2016 02:29:Filemon Ribeiro RN) Gen Hx Pt Father or FOB Defect: No (10/16/2016 02:29:Filemon Ribeiro RN) Gen Hx Other Genetic History: No (10/16/2016 02:29:Filemon Ribeiro RN) Gen Hx Drugs/Meds since LMP: No (10/16/2016 02:29:Filemon Ribeiro RN)
--- NOTE | 2016-10-19 06:01 | L&D Current Admission ---
Current Admit Datetime Report Generated by CPN: 10/19/2016 06:00 ADMISSION INFORMATION Current Admit Date/Time: 10/16/2016 03:00 (10/16/2016 03:00:Filemon Ribeiro RN) Reason for Admission: Rupture of Membranes (10/16/2016 03:00:Bia Paige RN) Other Reason for Admission: Suspected ROM (10/16/2016 03:00:Filemon Ribeiro RN) Chief Complaint: Suspected Rupture of Membranes (10/16/2016 03:00:Filemon Ribeiro RN) Medications During : Methyldopa (Aldomet); Labetolol; Acetaminophen (Tylenol); Ondansetron (Zofran) (10/16/2016 03:00:Filemon Ribeiro RN) EGA per Dates: 32.2 (10/16/2016 03:00:QS system process) Method of Arrival: Wheelchair (10/16/2016 03:00:Filemon Ribeiro RN) Admitted From: Home (10/16/2016 03:00:Filemon Ribeiro RN) Reason for Induction: Not Applicable (10/16/2016 03:00:iBa Paige RN) Records Available: Yes (10/16/2016 03:00:Filemon Ribeiro RN) General Admission Information: Reviewed (10/16/2016 03:00:Filemon Ribeiro RN) BELONGINGS/ADVANCED DIRECTIVES Valuables/Personal Effects: Cell Phone; Eyeglasses (10/16/2016 03:00:Filemon Ribeiro RN) Disposition of Belongings: Kept with Patient (10/16/2016 03:00:Filemon Ribeiro RN) Advance Direct for Healthcare: No, and Wants No Information (10/16/2016 03:00:Filemon Ribeiro RN) Durable Power of Openstack Developer: No (10/16/2016 03:00:Filemon Ribeiro RN) Living Will: No (10/16/2016 03:00:Filemon Ribeiro RN) Organ Donor: Yes (10/16/2016 03:00:Filemon Ribeiro RN) Pt Rights Information Given: Yes (10/16/2016 03:00:Filemon Ribeiro RN) Pt Understands Pt Rights: Yes (10/16/2016 03:00:Filemon Ribeiro RN) LEARNING ASSESSMENT Knowledge Level: Understands L_D Process; Understands Care Activities; Had Pre-Hospital Education; Understands Diagnosis (10/16/2016 03:00:Filemon Ribeiro RN) Barriers to Learning: None (10/16/2016 03:00:Filemon Ribeiro RN) Learning Readiness: Motivated (10/16/2016 03:00:Filemon Ribeiro RN) Learns Best By: Demonstration (10/16/2016 03:00:Filemon Ribeiro RN) Learning Needs: Labor and Delivery Process; Pain Management; Symptoms to Report; Treatment Plan; Medication; Diagnosis; Nutrition; Equipment; Infant Care (10/16/2016 03:00:Filemon Ribeiro RN) DOMESTIC VIOLANCE SCREENING Dom Viol Threatened/Hurt: No (10/16/2016 03:00:Filemon Ribeiro RN) Hx of Abuse/Neglect past 2yrs: No (10/16/2016 03:00:Filemon Ribeiro RN) Feel Unsafe Going Home: No (10/16/2016 03:00:Filemon Ribeiro RN) Addt'l Observ Indicating Abuse: No (10/16/2016 03:00:Filemon Ribeiro RN) Reason Unable to Complete Screen: N/A, Screen Completed (10/16/2016 03:00:Filemon Ribeiro RN) Considered Personal Harm/Suicide: No (10/16/2016 03:00:Filemon Ribeiro RN) NUTRITIONAL/FUNCTIONAL SCREENING Problem with Appetite >5 Days: No (10/16/2016 03:00:Filemon Ribeiro RN) Chew/Swallow Difficulties: No (10/16/2016 03:00:Filemon Ribeiro RN) Inappropriate Wt Gain/Loss: No (10/16/2016 03:00:Filemon Ribeiro RN) Presence Skin Breakdown/Ulcer: No (10/16/2016 03:00:Filemon Ribeiro RN) Special Diet: No (10/16/2016 03:00:Filemon Ribeiro RN) Pt Requests Graphic Art Designer Visit: No (10/16/2016 03:00:Filemon Ribeiro RN) Hx of Any of the Following?: N/A (10/16/2016 03:00:Filemon Ribeiro RN) New Diagnosis of: N/A (10/16/2016 03:00:Filemon Ribeiro RN) Requires Assist w/Ambulation: No (10/16/2016 03:00:Filemon Ribeiro RN) Uses Assist Device to Ambulate: No (10/16/2016 03:00:Filemon Ribeiro RN) Pt Requires Help w/ADL's: No (10/16/2016 03:00:Filemon Ribeiro RN)
[2016-10-19] MEDS: IBUPROFEN 800 MG TABLET PO SCH ×3 (06:16→22:26)
[2016-10-19 07:03] LABS: HEMATOCRIT 28.9 % (36.0-47.0); HEMOGLOBIN 9.4 g/dL (12.0-15.5); HGB HCT DIFFERENCE -0.7; MEAN CORPUSCULAR HEMOGLOBIN 26.1 pg (27.0-33.4); MEAN CORPUSCULAR HGB CONC 32.5 g/dL (32.0-36.0); MEAN CORPUSCULAR VOLUME 81 fl (80-97); RED CELL DISTRIBUTION WIDTH 14.5 % (11.5-14.0); WHITE BLOOD COUNT 7.3 10^3/uL (4.0-10.5)
[2016-10-19] MEDS: PRENATAL VITAMIN W-O CA NO5/FE FUMARATE/FA CAPSULE PO SCH (09:22)
[2016-10-19] MEDS: DOCUSATE SODIUM 100 MG CAPSULE PO SCH ×2 (09:22→17:02)
[2016-10-19] MEDS: SENNOSIDES/DOCUSATE 8.6-50 MG 1 EACH TABLET PO SCH (09:22)
[2016-10-19] MEDS: FERROUS SULFATE 325 MG TABLET PO SCH ×2 (09:23→17:02)
[2016-10-19] MEDS: METHYLDOPA 250 MG TABLET PO SCH ×2 (09:24→22:26)
--- NOTE | 2016-10-19 11:03 | PDOC PROGRESS REPORT ---
Subjective-OB Subjective: Post Delivery Day: 26 year old. Denies any needs at this time. Pt in NICU with baby, doing welll per RN. Physical Exam (OB) Vital Signs: Temp Pulse Resp BP Pulse Ox 97.7 F 58 L 16 103/64 100 10/19/16 07:40 10/19/16 07:40 10/19/16 07:40 10/19/16 07:40 10/19/16 07:40 Intake & Output 10/18/16 10/19/16 10/20/16 06:59 06:59 06:59 Intake Total 240 Balance 240 Objective-Diagnostic Laboratory: 10/19/16 06:45 10/16/16 03:49 10/19/16 06:45 WBC 7.3 RBC 3.60 L Hgb 9.4 L Hct 28.9 L MCV 81 MCH 26.1 L MCHC 32.5 RDW 14.5 H Plt Count 142 L Assessment and Plan(PN) - Assessment and Plan (1) Vaginal delivery Is this a current diagnosis for this admission?: Yes - Time Spent with Patient Time with patient: Less than 15 minutes Medications reviewed and adjusted accordingly: Yes - Disposition Anticipated Discharge: Home Within: within 24 hours
[2016-10-20] MEDS: IBUPROFEN 800 MG TABLET PO SCH (06:37)
[2016-10-20 08:03] VITALS: BP 128/80
--- NOTE | 2016-10-20 09:00 | PDOC DISCHARGE SUMMARY ---
Final Diagnosis Discharge Date: 10/20/16 - Final Diagnosis (1) Vaginal delivery Is this a current diagnosis for this admission?: Yes Discharge Data - Discharge Medication Home Medications: Vit/Iron Fumarate/FA [ Tablet] 1 tab PO DAILY 10/17/16 Methyldopa [Aldomet 250 mg Tablet] 250 mg PO Q12 10/18/16 Acetaminophen [Tylenol 325 mg Tablet] 650 mg PO Q4HP PRN #0 tablet 10/20/16 Acetaminophen with Codeine [Tylenol #3 Tablet] 1 each PO Q4HP PRN #30 tablet Methyldopa [Aldomet 250 mg Tablet] 250 mg PO Q12 #0 tablet 10/20/16 Gestational Age: 32.4 Reason(s) for Admission: PROM Procedures: None Intrapartum Procedure(s): Spontaneous Vaginal Delivery - Diagnosis Test Laboratory: Temp Pulse Resp BP Pulse Ox 97.6 F 69 16 128/80 H 99 10/20/16 07:59 10/20/16 07:59 10/20/16 07:59 10/20/16 07:59 10/20/16 07:59 10/16/16 10/16/16 10/17/16 02:44 03:49 06:53 RBC 4.32 3.85 Hgb 11.3 L 10.1 L Hct 34.4 L 30.6 L Urine Opiates Screen NEGATIVE 10/19/16 06:45 RBC 3.60 L Hgb 9.4 L Hct 28.9 L Urine Opiates Screen - Discharge information/Instructions Discharge Activity: Activity As Tolerated, No Lifting Over 10 Pounds, Pelvic Rest, No tub bath Discharge Diet: Regular Disposition: HOME, SELF-CARE Follow up with: [facility] in: 4
[2016-10-20] MEDS: DOCUSATE SODIUM 100 MG CAPSULE PO SCH (09:24)
[2016-10-20] MEDS: FERROUS SULFATE 325 MG TABLET PO SCH (09:24)
[2016-10-20] MEDS: SENNOSIDES/DOCUSATE 8.6-50 MG 1 EACH TABLET PO SCH (09:25)
[2016-10-20] MEDS: METHYLDOPA 250 MG TABLET PO SCH (09:25)
[2016-10-20] MEDS: PRENATAL VITAMIN W-O CA NO5/FE FUMARATE/FA CAPSULE PO SCH (09:25)
== END 2016-10-20 12:45 | disposition home or self-care (01) | DRG 774 ==
LOC: LC 02:27 → LR 03:25 → 2S 10-17 09:35 → LR 10-18 06:35 → 2S 10-18 12:01
PROVIDERS: ADMIT Obstetrics & Gynecology; ATTEND Obstetrics & Gynecology
PROC: 10E0XZZ Delivery of Products of Conception, External Approach (ICD-10-PCS; principal; 2016-10-18)
PROC: 3E0234Z Introduction of Serum, Toxoid and Vaccine into Muscle, Percutaneous Approach (ICD-10-PCS; 2016-10-20)
DX: O60.14X0 Preterm labor third trimester with preterm delivery third trimester, not applicable or unspecified (principal); O10.92 Unspecified pre-existing hypertension complicating childbirth; O42.913 Preterm premature rupture of membranes, unspecified as to length of time between rupture and onset of labor, third trimester; Z3A.32 32 weeks gestation of pregnancy; Z37.0 Single live birth
CPT/HCPCS: 36415; 76815; 80053; 80307; 81001; 83615; 84112; 84550; 85025; 85027; 86592; 86850; 86900; 86901; 87491; 87591; 88307; 96372; J0456; J0702; J2300; J2405; J2540; J2590; J3475; J3490